=== PATIENT | female | born 1995 | race Hispanic/Latino ===

== ENCOUNTER 2019-11-25 11:44 | Emergency (ER) | payer OTHER, SELFPAY ==
--- NOTE | 2019-11-25 13:23 | EKG ---
Test Date: 2019-11-25 Test Time: 12:40:20 Headliner Installer: PAOLO MEASUREMENT RESULTS: Intervals: Rate: 96 MN: 142 QRSD: 82 QT: 348 QTc: 439 [place]: P: 70 MN: 142 QRS: 90 T: 68 INTERPRETIVE STATEMENTS: Normal sinus rhythm Right atrial enlargement Rightward axis Borderline ECG No previous ECG available for comparison Electronically Signed On 11-25-19 13:22:24 CDT by Roe Vargas
--- NOTE | 2019-11-25 13:30 | RAD REPORT ---
EXAM DESCRIPTION: RAD - Chest Single View - 11/25/2019 1:04 pm CLINICAL HISTORY: CHEST PAIN TECHNIQUE: AP portable chest image was obtained 11/25/2019 1:04 pm . FINDINGS: Lungs are clear. Heart and vasculature are normal. No measurable pleural effusion and no p neumothorax. No acute bony abnormality seen. No acute aortic findings suspected. IMPRESSION: No acute cardiopulmonary process.
[2019-11-25 13:31] LABS: Absolute Lymphocytes (CBC) 1.8 K/uL (0.7-4.9); Basophils % 0.5 % (0-1.3); Hematocrit 42.4 % (36.0-45.0); Lymphocytes % 24.9 % (15.3-44.8); MPV 9.3 fL (7.6-11.3); RBC Red Blood Cell Count 5.25 M/uL (3.86-4.86)
[2019-11-25 13:37] LABS: ALT/SGPT 28 U/L (12-78); AST/SGOT 18 U/L (15-37); Albumin 3.9 g/dL (3.4-5.0); Alkaline Phosphatase 82 U/L (45-117); BUN Blood Urea Nitrogen 10 mg/dL (7-18); Bicarbonate 27 mmol/L (21-32); Bilirubin Direct < 0.1 mg/dL (0-0.2); Bilirubin Total 0.4 mg/dL (0.2-1.0); Glucose Level 86 mg/dL (74-106); Magnesium 1.9 mg/dL (1.8-2.4); NT PRO-BNP 44 pg/mL (<125); Potassium 3.5 mmol/L (3.5-5.1); Protein, Total 8.1 g/dL (6.4-8.2); Sodium Level 140 mmol/L (136-145); Troponin (Emerg Dept Use Only) < 0.02 ng/mL (0.0-0.045)
[2019-11-25 13:39] LABS: Protime INR 1.05
--- NOTE | 2019-11-25 13:39 | RAD REPORT ---
EXAM DESCRIPTION: US - Abdomen Exam Limited - 11/25/2019 1:25 pm CLINICAL HISTORY: ABD PAIN COMPARISON: No comparisons FINDINGS: No gallstones, sludge or other abnormalities within the gallbladder lumen. There is no wal l thickening or pericholecystic fluid. No common duct stone or biliary tree dilatation identified. IMPRESSION: Normal gallbladder and biliary tree ultrasound.
[2019-11-25] MEDS ORDERED: FAMOTIDINE 20 MG/2 ML VIAL IV ONE (13:58)
--- NOTE | 2019-11-25 14:29 | RAD REPORT ---
EXAM DESCRIPTION: CT - Chest For Pe Angio - 11/25/2019 2:21 pm CLINICAL HISTORY: CHEST PAIN COMPARISON: Chest Single View dated 11/25/2019 TECHNIQUE: Dynamically enhanced 3 mm thick images of the chest were obtained during administration o f approximately 150mL Isovue 370 IV contrast. Coronal and oblique MIP reconstruction images were gene rated and reviewed. Exam utilizes a protocol to evaluate the pulmonary arterial tree. All CT scans are performed using dose optimization technique as appropriate and may include automated exposure control or mA/KV adjustment according to patient size. FINDINGS: No pulmonary emboli are identified. The aorta as imaged shows no acute or suspicious finding. No pericardial thickening or effusion. No infiltrate or mass in the lung parenchyma. No pleural effusion or pleural thickening. No mediastinal or hilar suspicious masses. No chest wall masses or abnormal axillary lymphadenopathy. IMPRESSION: No pulmonary emboli identified. No other significant or suspicious findings.
--- NOTE | 2019-11-25 14:51 | EDPHYS ---
Physician Documentation [facility] Name: Eden Lopez Age: 24 yrs Sex: Female : 1995 Arrival Date: 11/25/2019 Time: 11:45 Bed 24 Private MD: ED Physician Dominick Yates HPI: 11/24 13:31 This 24 yrs old Female presents to ER via Ambulatory with complaints of Chest la1 Pain. 13:31 Onset: The symptoms/episode began/occurred 1 month(s) ago. Associated signs and la1 symptoms: Pertinent negatives: abdominal pain, congestion, constipation, cough, diarrhea, dysuria, nasal discharge. Modifying factors: The patient symptoms are alleviated by nothing, the patient symptoms are aggravated by eating food. The patient has not experienced similar symptoms in the past. pt reports for the last month she has had chest pain, states pain is worse after eating. . 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 - Social history:: Smoking status: Patient denies any tobacco usage or history of. ROS: 13:32 Constitutional: Negative for fever, chills, and weight loss, Eyes: Negative for injury, la1 pain, redness, and discharge, ENT: Negative for injury, pain, and discharge, Neck: Negative for injury, pain, and swelling, Cardiovascular: + for chest pain Respiratory: Negative for shortness of breath Abdomen/GI: Negative for abdominal pain, nausea, vomiting, diarrhea, and constipation, Back: Negative for injury and pain, MS/Extremity: Negative for injury and deformity, Neuro: Negative for headache, weakness, numbness, tingling, and seizure. Exam: 13:33 Constitutional: This is a well developed, well nourished patient who is awake, alert, la1 and in no acute distress. Head/Face: Normocephalic, atraumatic. ENT: Nares patent. No nasal discharge, no septal abnormalities noted. Tympanic membranes are normal and external auditory canals are clear. Oropharynx with no redness, swelling, or masses, exudates, or evidence of obstruction, uvula midline. Mucous membranes moist. Neck: Trachea midline, Supple, full range of motion without nuchal rigidity, or vertebral point tenderness. No Meningismus. Chest/axilla: Normal chest wall appearance and motion. Nontender with no deformity. No lesions are appreciated. Cardiovascular: Regular rate and rhythm with a normal S1 and S2. Respiratory: Lungs have equal breath sounds bilaterally, clear to auscultation Back: No spinal tenderness. No costovertebral tenderness. Full range of motion. MS/ Extremity: Pulses equal, no cyanosis. Neurovascular intact. Full, normal range of motion. Neuro: Awake and alert, GCS 15, oriented to person, place, time, and situation 13:33 Abdomen/GI: Inspection: abdomen appears normal, Bowel sounds: normal, in all quadrants, Palpation: soft, in all quadrants, moderate abdominal tenderness, in the right upper quadrant, Indicators: McBurney's point is not tender, Baugh's sign is positive, Rovsing's sign is negative, Obturator sign is negative, Psoas sign is negative. 13:43 ECG was reviewed by the Attending Physician. la1 Vital Signs: 12:02 BP 120 / 78; Pulse 103; Resp 14; Temp 98.5(TE); Pulse Ox 100% on R/A; Weight 64.86 kg; ss Height 5 ft. 2 in. (157.48 cm); Pain 3/10; 13:00 BP 101 / 71; Pulse 91; Resp 16; Pulse Ox 100% on R/A; vc 14:00 BP 116 / 85; Pulse 82; Resp 17; Pulse Ox 100% on R/A; vc 14:59 BP 120 / 87; Pulse 93; Resp 16; Temp 98.1(O); Pulse Ox 100% on R/A; vc 12:02 Body Mass Index 26.15 (64.86 kg, 157.48 cm) ss MDM: 13:24 Patient medically screened. la1 14:46 Differential diagnosis: viral Infection, bronchitis, pneumonia ischemic chest pain, PE. la1 Data reviewed: vital signs, nurses notes, lab test result(s), EKG, radiologic studies, I have discussed the patient's presentation/case with the attending Emergency Department Physician; and as a result, I will discharge patient. Data interpreted: Pulse oximetry: on room air is 100 %. Counseling: I had a detailed discussion with the patient and/or guardian regarding: the historical points, exam findings, and any diagnostic results supporting the discharge/admit diagnosis, lab results, radiology results, the need for outpatient follow up, a family practitioner, to return to the emergency department if symptoms worsen or persist or if there are any questions or concerns that arise at home. Special discussion: Based on the patient's history, exam, and Dx evaluation, there is no indication for emergent intervention or inpatient Tx. It is understood by the patient/guardian that if the Sx's persist or worsen they need to return immediately for re-evaluation. ED course: pt was tachycardia with rightward axis and right atrial enlargement, DDIMER was ordered to attempt to R/O PE as she was low risk but it was +, CT PE shows no acute findings, will have Pt FU with PCP, strict return precautions given. 11/24 12:48 Order name: Basic Metabolic Panel [facility] 11/24 12:48 Order name: CBC with Diff; Complete Time: 13:43 [facility] 11/24 12:48 Order name: LFT's; Complete Time: 13:43 [facility] 11/24 12:48 Order name: Magnesium; Complete Time: 13:43 [facility] 11/24 12:48 Order name: NT PRO-BNP; Complete Time: 13:43 [facility] 11/24 12:48 Order name: PT-INR; Complete Time: 13:59 [facility] 11/24 12:48 Order name: Troponin (emerg Dept Use Only); Complete Time: 13:43 [facility] 11/24 12:27 Order name: Cardiac monitoring; Complete Time: 13:26 11/24 12:27 Order name: EKG - Nurse/Tech; Complete Time: 13:26 11/24 12:27 Order name: IV Saline Lock; Complete Time: 13: 11/24 12:27 Order name: Labs collected and sent; Complete Time: 13: 11/24 12:27 Order name: O2 Per Protocol; Complete Time: 13:27 11/24 12:27 Order name: O2 Sat Monitoring; Complete Time: 13:27 11/24 12:48 Order name: XRAY Chest (1 view); Complete Time: 13:43 [facility] 11/24 12:48 Order name: EKG; Complete Time: 12:49 jl7 11/24 12:49 Order name: Basic Metabolic Panel; Complete Time: 13:43 EDTN 11/24 13:04 Order name: US Abdomen Limited; Complete Time: 13:44 la1 11/24 13:26 Order name: D-Dimer; Complete Time: 13:59 EDMS 11/24 13:59 Order name: CT Chest For PE Angio; Complete Time: 14:39 la1 EC:43 Rate is 96 beats/min. Rhythm is regular. Right axis deviation noted. HI interval is la1 normal at 142 msec. QRS interval is normal. QT interval is normal. No Q waves. T waves are Normal. No ST changes noted. Clinical impression: Normal ECG and rightward axis deviation. Interpreted by me. Reviewed by me. Administered Medications: 14:00 Drug: Pepcid 20 mg Route: IVP; Site: right antecubital; vc 14:51 Follow up: Response: No adverse reaction vc Disposition: 16:26 Co-signature as Attending Physician, Dominick Yates MD I agree with the assessment and kdr plan of care. Disposition: 11/25/19 14:50 Discharged to Home. Impression: Chest pain, unspecified. - Condition is Stable. - Discharge Instructions: Nonspecific Chest Pain, Gastroesophageal Reflux Disease, Adult. - Medication Reconciliation Form, Thank You Letter form. - Follow up: Private Physician; When: 2 - 3 days; Reason: Recheck today's complaints, Re-evaluation by your physician. - Problem is new. - Symptoms have improved. Signatures: Dispatcher [employer] [facility] Dominick Yates MD MD [facility] Aline Michelle RN RN Dixon Avalos, CANCER PROGRAM DIRECTOR-C CANCER PROGRAM DIRECTOR-Cla1 Gauri Reese RN RN vc Corrections: (The following items were deleted from the chart) 13:26 13:04 D-DIMER+COAG.LAB.BRZ ordered. [facility] 15:15 14:50 11/25/2019 14:50 Discharged to Home. Impression: Chest pain, unspecified. vc Condition is Stable. Forms are Medication Reconciliation Form, Thank You Letter, Antibiotic Education, Prescription Opioid Use. Follow up: Private Physician; When: 2 - 3 days; Reason: Recheck today's complaints, Re-evaluation by your physician. Problem is new. Symptoms have improved. la1
--- NOTE | 2019-11-25 14:51 | ER ---
Nurse's Notes [facility] Name: Eden Lopez Age: 24 yrs Sex: Female : 1995 Arrival Date: 11/25/2019 Time: 11:45 Bed 24 Private MD: Diagnosis: Chest pain, unspecified Presentation: 11/24 12:02 Chief complaint: Patient states: Sent by Dr. Hernandez for further evaluation of ss intermittent CP and dizziness x 1 month. Coronavirus screen: The patient has NOT traveled to a country currently being monitored by the [facility] within the last 14 days. Proceed with normal triage procedures. Ebola Screen: Patient denies exposure to infectious person. Patient denies travel to an Ebola-affected area in the 21 days before illness onset. Initial Sepsis Screen: Does the patient meet any 2 criteria? No. Patient's initial sepsis screen is negative. Does the patient have a suspected source of infection? No. Patient's initial sepsis screen is negative. Risk Assessment: Do you want to hurt yourself or someone else? Patient reports no desire to harm self or others. 12:02 Method Of Arrival: Ambulatory ss 12:02 Acuity: ELBERT 3 ss 12:22 Onset of symptoms is unknown. vc Triage Assessment: 12:15 General: Appears in no apparent distress. comfortable, Behavior is calm, cooperative, vc appropriate for age. Pain: Complains of pain in CHEST Quality of pain is described as Is intermittent. Cardiovascular: Capillary refill < 3 seconds Patient's skin is warm and dry. 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 - Social history:: Smoking status: Patient denies any tobacco usage or history of. Screenin:22 Abuse screen: Denies threats or abuse. Nutritional screening: No deficits noted. vc Tuberculosis screening: No symptoms or risk factors identified. Fall Risk None identified. Assessment: 12:15 General: Appears in no apparent distress. comfortable, Behavior is cooperative, vc appropriate for age, anxious. Neuro: Level of Consciousness is awake, alert, obeys commands, Oriented to person, place, time, situation, Appropriate for age. Cardiovascular: Reports chest pain, Capillary refill < 3 seconds Patient's skin is warm and dry. Respiratory: Airway is patent Respiratory effort is even, unlabored, Respiratory pattern is regular, symmetrical. GI: No signs and/or symptoms were reported involving the gastrointestinal system. : No signs and/or symptoms were reported regarding the genitourinary system. Derm: Skin is intact, is healthy with good turgor, Skin is dry, Skin is pink, warm \T\ dry. Skin temperature is warm. 12:20 Pain: Pain does not radiate. vc 12:22 Pain: Pain began one month ago. vc 13:00 Reassessment: Patient and/or family updated on plan of care and expected duration. Pain vc level reassessed. Patient is alert, oriented x 3, equal unlabored respirations, skin warm/dry/pink. 13:46 Reassessment: Dixon Avalos INFORMATION WRITER notified of critical lab value. DDIMER [id number]. 14:00 Reassessment: Patient and/or family updated on plan of care and expected duration. Pain vc level reassessed. Patient is alert, oriented x 3, equal unlabored respirations, skin warm/dry/pink. Patient states symptoms have not improved. 14:09 Reassessment: PATIENT TO CT VIA STRETCHER. vc 15:14 Reassessment: Patient and/or family updated on plan of care and expected duration. Pain vc level reassessed. Patient is alert, oriented x 3, equal unlabored respirations, skin warm/dry/pink. Patient states symptoms have not improved. Vital Signs: 12:02 BP 120 / 78; Pulse 103; Resp 14; Temp 98.5(TE); Pulse Ox 100% on R/A; Weight 64.86 kg; Height 5 ft. 2 in. (157.48 cm); Pain 3/10; 13:00 BP 101 / 71; Pulse 91; Resp 16; Pulse Ox 100% on R/A; vc 14:00 BP 116 / 85; Pulse 82; Resp 17; Pulse Ox 100% on R/A; vc 14:59 BP 120 / 87; Pulse 93; Resp 16; Temp 98.1(O); Pulse Ox 100% on R/A; vc 12:02 Body Mass Index 26.15 (64.86 kg, 157.48 cm) ED Course: 11:45 Patient arrived in ED. as 12:03 Triage completed. ss 12:04 Arm band placed on right wrist. ss 12:15 Patient has correct armband on for positive identification. Placed in gown. Bed in low vc position. Call light in reach. ripsaw grader on. Pulse ox on. NIBP on. 12:18 Dixon Avalos FNP-C is PHCP. la1 12:18 Dominick Yates MD is Attending Physician. la1 12:20 Gauri Reese, RN is Primary Nurse. vc 12:40 Inserted saline lock: 22 gauge in right antecubital area, using aseptic technique. vc Blood collected. 12:40 Patient maintains SpO2 saturation greater than 95% on room air. vc 13:03 X-ray completed. Portable x-ray completed in exam room. Patient tolerated procedure mh1 well. 13:04 XRAY Chest (1 view) In Process Unspecified. EDMS 13:26 US Abdomen Limited In Process Unspecified. EDMS 14:21 CT Chest For PE Angio In Process Unspecified. EDMS 15:00 No provider procedures requiring assistance completed. vc 15:14 IV discontinued, intact, bleeding controlled, No redness/swelling at site. Pressure vc dressing applied. Administered Medications: 14:00 Drug: Pepcid 20 mg Route: IVP; Site: right antecubital; vc 14:51 Follow up: Response: No adverse reaction vc Outcome: 14:50 Discharge ordered by . la1 15:14 Discharged to home ambulatory. vc 15:14 Condition: good 15:14 Discharge instructions given to patient, Instructed on discharge instructions, follow up and referral plans. Demonstrated understanding of instructions, follow-up care. 15:15 Patient left the ED. vc Signatures: Dispatcher [employer] EDMS Sariah Walden 1 Nataliya Rubio Shelby, RN RN Dixon Avalos FNP-C FNP-[facility] Gauri Reese RN RN vc
[2019-11-25 15:22] VITALS: O2SAT 100
[2019-11-25 15:26] VITALS: BP 120/87; TEMP 98.1
== END 2019-11-25 15:15 | disposition home or self-care (01) ==
LOC: ER 11:44
DX: R07.9 Chest pain, unspecified (principal)
CPT/HCPCS: 36415; 71045; 71275; 76705; 80048; 80076; 83735; 83880; 84484; 85025; 85379; 85610; 93005; 96374; 99285; Q9967

== ENCOUNTER 2020-02-23 16:10 | Emergency (ER) | payer OTHER ==
[2020-02-23] MEDS ORDERED: LORazepam 2 MG/ML VIAL ONE (16:53)
[2020-02-23 17:08] LABS: Absolute Lymphocytes (CBC) 2.1 K/uL (0.7-4.9); Basophils % 0.5 % (0-1.3); Hematocrit 43.4 % (36.0-45.0); Lymphocytes % 29.9 % (15.3-44.8); MPV 9.3 fL (7.6-11.3); RBC Red Blood Cell Count 5.05 M/uL (3.86-4.86)
[2020-02-23 17:19] LABS: Barbiturates NEGATIVE (NEGATIVE); Benzodiazepines NEGATIVE (NEGATIVE); Cocaine NEGATIVE (NEGATIVE); METHAMPHETAM NEGATIVE (NEGATIVE); Methadone NEGATIVE (NEGATIVE); Opiates NEGATIVE (NEGATIVE); Phencyclidine NEGATIVE (NEGATIVE); THC Cannibis NEGATIVE (NEGATIVE)
--- OUTSIDE RECORDS SUMMARY | 2020-02-23 17:26 | XMS REPORT ---
:1995 Author Organization [employer] Care Team Providers Name Role Phone Iliana Hernandezh Provider Role Unavailable Allergies No Known Allergies Problems Problem Type Condition Code Onset Dates Condition Statu s Problem Dysphagia, unspecified type R13.10 Active Problem GERD without esophagitis K21.9 Act gwendolyn Medications No Known Medications Results No Known Results Summary Purpose eClinicalWorks Submission
--- OUTSIDE RECORDS SUMMARY | 2020-02-23 17:26 | XMS REPORT ---
:1995 Author Organization [employer] Care Team Providers Name Role Phone David [facility] Provider Role Unavailable Allergies, Adverse Reactions, Alerts Substance Reaction Event Type Macrobid Rash Drug Allergy Problems Problem Type Condition Code Onset Dates Condition Statu s Assessment Chest pain, unspecified type R07.9 Active Medications Medication Code System Code Instructions Start Date End Date Status Dosage Vitamin B12 [facility] 37711-676 Active not define d 17 Ferrous Sulfate [facility] 92764-120 Active not de fined 83 Results No Known Results Summary Purpose eClinicalWorks Submission
--- OUTSIDE RECORDS SUMMARY | 2020-02-23 17:26 | XMS REPORT ---
:1995 Author Organization e[employer] Care Team Providers Name Role Phone David [facility] Provider Role Unavailable Allergies, Adverse Reactions, Alerts Substance Reaction Event Type Macrobid Rash Drug Allergy Problems Problem Type Condition Code Onset Dates Condition Statu s Problem Dysphagia, unspecified type R13.10 Active Problem GERD without esophagitis K21.9 Act gwendolyn Assessment GERD without esophagitis K21.9 Act gwendolyn Assessment Other chest pain R07.89 Active Assessment Dysphagia, unspecified type R13.10 Active Medications Medication Code Code Instructions Start End Status Dosage System Date Date Vitamin B12 [facility] [address]24-[address] Active not defined Omeprazole [facility] [id number] 40 MG Orally November 26 Active 1 capsule Once a day 2019 30 minutes before morning meal Ferrous [facility] 75[address] Active not Sulfate defined Results No Known Results Summary Purpose eClinicalWorks Submission
--- OUTSIDE RECORDS SUMMARY | 2020-02-23 17:26 | XMS REPORT | Continuity of Care Document ---
:1995 Author Organization [facility] t Address [address] [place] [address] Care Team Providers Name Role Phone Unavailable Unavailable Unavailable Payers Payer Name Policy Type Policy Number Effective Date Expiration Date S ource Problems Condition Condition Condition Status Onset Resolution Last Treating Co mments Source Name Details Category Date Date Treatment Clinician Date Pre-eclamp Pre-eclamp Problem Active [facility] nano nano 1-22 da 00:00: Medical 00 Group Oligohydra Oligohydra Problem Active [facility] mnios mnios 1-22 da 00:00: Medical Group Problem Active [facility] growth Growth 1-22 da restrictio Restrictio 00:00: Me dical n n 00 Group Small for Small for Problem Active [facility] gestationa Gestationa 1-15 da l age l Age 00:00: Medical fetus Fetus 00 Group Candidiasi Candidiasi Problem Active 2016-09 [facility] s of s of 0-05 da vagina Vagina 00:00: Medical 00 Group Gastroesop Gastroesop Problem Active 2016-09 [facility] hageal hageal 0-05 da reflux Reflux 00:00: Medical disease Disease 00 Group without without esophagiti Esophagiti s s Acute Acute Problem Active [facility] cystitis Cystitis 9-12 da in in 00:00: Medical , , 00 Gr oup antepartum Antepartum Allergic Allergic Problem Active [facility] rhinitis Rhinitis 8-15 da due to Due to 00:00: Medical pollen Pollen 00 Group Mild Mild Problem Active [facility] hyperemesi Hyperemesi 8-15 da s-not s-not 00:00: Medical delivered Delivered 00 Grou p Problem Active [facility] 8-14 da 00:00: Medical 00 Group Insomnia Insomnia Problem Active [facility] 207 da 00:00: Medical 00 Group Migraine Migraine Problem Active [facility] 2 da 00:00: Medical 00 Group Dysphagia, Dysphagia, Problem Active [facility] unspecifie unspecifie Thuy kes - d type d type [facility] GERD GERD Problem Active [facility] without without [facility] - esophagiti esophagiti Me moria s s l [facility] Allergies, Adverse Reactions, Alerts Allergy Allergy Status Severity Reaction(s) Onset Inactive Treating Comm ents Source Name Type Date Date Clinician nitrofur DA Active [facility] [place] Macrobid Adverse Active Rash [facility] Reaction [facility] House Allergy Active [facility] Dust to da substanc Medical e Group Nitrofur Allergy Active [facility] antoin to da substanc Medical e Group TREE AND Allergy Active [facility] SHRUB to da POLLEN [facility] Medical e Group Social History Smoking Status Start Date Stop Date Source Never Smoker [facility] Medications Ordered Filled Start Stop Current Ordering Indication Dosage Frequency Signature Comments Components Source Medication Medication Date Date Medication? Clinician (SIG) Name Name Sulfamethox Sulfamethox 2019-0 2020- Yes Tadeo [address] [facility] azole-Trime azole-Trime 4-20 04-25 Hernandez [facility] - thoprim thoprim 00:00: 00:00 Memori a 00 :00 l [facility] Omeprazole Omeprazole 2019-0 Yes Tadeo [address] [facility] 3-20 Hernandez 30 minutes [facility] - 00:00: before Memoria 00 morning l meal [facility] Vitamin B12 Vitamin B12 Yes Tadeo not [facility] Hernandez defined [facility] Ferrous Ferrous Yes Tadeo not [facility] Sulfate Sulfate Hernandez defined [facility] Zithromax Zithromax No Zithromax Yongr Z-Edin 250 Z-Edin 250 Z-Edin 250 da mg tablet mg tablet mg tablet Medical TAKE 2 TAKE 2 TAKE 2 Group TABLETS TABLETS TABLETS (500 MG) BY (500 MG) BY (500 MG) ORAL ROUTE ORAL ROUTE BY ORAL ONCE DAILY ONCE DAILY ROUTE ONCE FOR 1 DAY FOR 1 DAY DAILY FOR THEN 1 THEN 1 1 DAY THEN TABLET (250 TABLET (250 1 TABLET MG) BY ORAL MG) BY ORAL (250 MG) ROUTE ONCE ROUTE ONCE BY ORAL DAILY FOR 4 DAILY FOR 4 ROUTE ONCE DAYS DAYS DAILY FOR 4 DAYS Vital Signs Vital Name Observation Time Observation Value Comments Source BP Diastolic 2018-11-03 00:00:00 70 mm[Hg] [facility] Height 2018-11-03 00:00:00 62 [facility] BMI (Body Mass 2018-11-03 00:00:00 23 kg/m2 [facility] Index) Group BP Systolic 2018-11-03 00:00:00 105 mm[Hg] [facility] Body Weight 2018-11-03 00:00:00 126 [lb_av] [facility] BP Diastolic 2018-10-30 00:00:00 72 mm[Hg] [facility] Height 2018-10-30 00:00:00 62 [in_i] [facility] BMI (Body Mass 2018-10-30 00:00:00 23 kg/m2 [facility] Index) Group BP Systolic 2018-10-30 00:00:00 102 mm[Hg] [facility] Body Weight 2018-10-30 00:00:00 2009 [oz_av] [facility] BP Diastolic 2018-10-20 00:00:00 60 mm[Hg] [facility] Height 2018-10-20 00:00:00 62 [in_i] [facility] BMI (Body Mass 2018-10-20 00:00:00 23.6 kg/m2 [facility] BP Systolic 2018-10-20 00:00:00 120 mm[Hg] [facility] Body Weight 2018-10-20 00:00:00 129 [lb_av] [facility] BP Diastolic 2018-09-25 00:00:00 65 mm[Hg] [facility] Height 2018-09-25 00:00:00 62 [in_i] [facility] BMI (Body Mass 2018-09-25 00:00:00 23.6 kg/m2 [facility] BP Systolic 2018-09-25 00:00:00 120 mm[Hg] [facility] Body Weight 2018-09-25 00:00:00 129 [lb_av] [facility] BP Diastolic 2018-09-22 00:00:00 70 mm[Hg] [facility] Height 2018-09-22 00:00:00 62 [in_i] [facility] BMI (Body Mass 2018-09-22 00:00:00 23.7 kg/m2 [facility] BP Systolic 2018-09-22 00:00:00 108 mm[Hg] [facility] Body Weight 2018-09-22 00:00:00 2069 [oz_av] [facility] Procedures Procedure Date / Time Performing Clinician Source Performed NM, hepatobiliary scan, 2018-10-21 00:00:00 [facility]/ [facility] CT, abdomen, w/wo 2018-10-01 00:00:00 [facility] unlisted imaging order 2018-09-25 00:00:00 [facility] Caesarean Section 2017-10-07 00:00:00 [facility] Ovarian Cystectomy [facility] Plan of Care Planned Activity Planned Date Details Comments Source Instructions [facility] Encounters Start End Encounter Admission Attending Care Care Encounter Source Date/Time Date/Time Type Type Clinicians Facility Department ID 2020-01-08 2020-01-08 Outpatient Zeina Boles [id number] 14:46:00 14:46:00 ALICE App [facility] Medicine Outpati ent Clinics 2019-12-28 2019-12-28 [facility] [id number] 15:15:00 15:15:[address] Luke [address] - Drive [facility] Medicine Outpati ent Clinics 2019-11-27 2019-11-27 [facility] [id number] 11:00:00 11:00:[address] Luke s - Drive [facility] Medicine Outpati ent Clinics 2019-11-25 2019-11-25 [facility] [id number] 11:00:00 11:00:00 [place] Luke s - Drive [facility] Medicine Medicine Outpati ent Clinics 2018-11-18 2018-11-18 Emergency E [facility] [id number] [facility] 21:14:00 21:14:00 2018-11-03 2018-11-03 Hang [place]IS [place] - [id number] [facility] 00:00:00 00:00:00 Ryan DO: [facility] randell garcia [address] [place] [phone] , Ph. [phone] 2018-10-30 2018-10-30 Truman [place] - [id number] [facility] 00:00:00 00:00:00 Harvey Diaz Medical MD: [address] [place] [address] [place] [phone] , Ph. 2018-10-25 2018-10-25 Emergency E [facility] [id number] [facility] 01:55:00 01:55:00 2018-10-20 2018-10-20 Hang LUIS [place] - [id number] [facility] 00:00:00 00:00:00 Ryan DO: [facility] randell garcia [address] [place] [phone] , Ph. [phone] 2018-09-25 2018-09-25 Hang LUIS [place] - [id number] [facility] 00:00:00 00:00:00 Ryan DO: [facility] randell garcia [address] [place] [phone] , Ph. [phone] 2018-09-22 2018-09-22 Truman [facility] [place] - [id number] [facility] 00:00:00 00:00:00 Moose Hampton, Medical Medical MD: [address] [facility], Family [address], [place] [address] , Ph. Results Test Description Test Time Test Comments Results Result Comments Source test, urine 2018-09-23 05:27:00 Test Item Value Reference Range Interpretation Comme nts Choriogonadotropin ( test) [Presence] in Urine (tessa t code = negative neg 2106-3) [facility] - [id number] 05:27:00 Test Item Value Reference Range Interpretation Comments Color of Urine by Auto (test yellow code = 19131-6) Appearance of Urine (test code clear clear = 5767-9) Glucose [Presence] in Urine by negative negative Automated test strip (test code = 23740-6) Bilirubin.total [Mass/volume] negative negative in Urine (test code = 1978-6) Ketones [Mass/volume] in Urine =2 negative H by Automated test strip (test code = 08428-2) Specific gravity of Urine by 1.034 1.003-1.030 H Automated test strip (test code = 11424-0) blood urine (test code = blood negative negative urine) pH of Urine (test code = 5.500 5-9 2756-5) protein urine (UA) (test code = trace negative protein urine (UA)) Urobilinogen [Presence] in =2.0 0.2-1.0 H Urine (test code = 53739-6) Nitrite [Presence] in Urine by negative negative Test strip (test code = 5802-4) Leukocyte esterase [Presence] =2 negative H in Urine by Automated test strip (test code = 59667-8) Erythrocytes [#/volume] in =1-5 0-5 Urine by Automated count (test code = 798-9) Leukocytes [#/area] in Urine =1-5 0-5 sediment by Automated count (test code = 55091-6) Epithelial cells [Presence] in =1-5 0-5 Urine sediment by Light microscopy (test code = 59365-1) Bacteria identified in Urine by none detected none detect Culture (test code = 630-4) Casts [#/area] in Urine =2-5 none detect sediment by Automated count (test code = 33476-6) urine culture added? (test code yes = urine culture added?) [facility] identified in Urine by [id number] 05:27:00Bacteria Ur [facility], [id number] 05:27:00 Test Item Value Reference Range Interpretation Comments Gentamicin [Susceptibility] by Minimum <4 inhibitory concentration (HEATHER) (test code = 267-5) Ampicillin [Susceptibility] by Minimum >16 inhibitory concentration (HEATHER) (test code = 28-1) Cefazolin [Susceptibility] by Minimum <8 inhibitory concentration (HEATHER) (test code = 76-0) Trimethoprim+Sulfamethoxazole =2/38 [Susceptibility] by Minimum inhibitory concentration (HEATHER) (test code = 516-5) Tetracycline [Susceptibility] by >8 Minimum inhibitory concentration (HEATHER) (test code = 496-0) Amoxicillin+Clavulanate =8/4 [Susceptibility] by Minimum inhibitory concentration (HEATHER) (test code = 20-8) Tobramycin [Susceptibility] by Minimum <4 inhibitory concentration (HEATHER) (test code = 508-2) Nitrofurantoin [Susceptibility] by <32 Minimum inhibitory concentration (HEATHER) (test code = 363-2) Cefotaxime [Susceptibility] by Minimum <2 inhibitory concentration (HEATHER) (test code = 108-1) Cefepime [Susceptibility] by Minimum <8 inhibitory concentration (HEATHER) (test code = 6644-9) Levofloxacin [Susceptibility] by <2 Minimum inhibitory concentration (HEATHER) (test code = 97979-7) Piperacillin+Tazobactam <16 [Susceptibility] by Minimum inhibitory concentration (HEATHER) (test code = 412-7) Ceftazidime [Susceptibility] by Minimum <1 inhibitory concentration (HEATHER) (test code = 133-9) Ceftriaxone [Susceptibility] by Minimum <8 inhibitory concentration (HEATHER) (test code = 141-2) Ciprofloxacin [Susceptibility] by <1 Minimum inhibitory concentration (HEATHER) (test code = 185-9) Imipenem [Susceptibility] by Minimum <4 inhibitory concentration (HEATHER) (test code = 279-0) Ampicillin+Sulbactam [Susceptibility] =8/4 by Minimum inhibitory concentration (HEATHER) (test code = 32-3) Ertapenem [Susceptibility] by Minimum <2 inhibitory concentration (HEATHER) (test code = 67455-6) Aztreonam [Susceptibility] by Minimum <8 inhibitory concentration (HEATHER) (test code = 44-8) [id number] (test code = vgc9341) <4 Meropenem [Susceptibility] by Minimum <4 inhibitory concentration (HEATHER) (test code = 6652-2) [facility], [id number] 05:27:00 Test Item Value Reference Range Interpretation Comments Choriogonadotropin ( test) negative neg [Presence] in Urine (test code = 2106-3) [facility] complete panel - [id number] 05:27:00 Test Item Value Reference Range Interpretation Comments Color of Urine by Auto (test yellow code = 76910-3) Appearance of Urine (test code clear clear = 5767-9) Glucose [Presence] in Urine by negative negative Automated test strip (test code = 83606-1) Bilirubin.total [Mass/volume] negative negative in Urine (test code = 1978-6) Ketones [Mass/volume] in Urine =2 negative H by Automated test strip (test code = 35006-0) Specific gravity of Urine by 1.034 1.003-1.030 H Automated test strip (test code = 06165-5) blood urine (test code = blood negative negative urine) pH of Urine (test code = 5.500 5-9 2756-5) protein urine (UA) (test code = trace negative protein urine (UA)) Urobilinogen [Presence] in =2.0 0.2-1.0 H Urine (test code = 06433-1) Nitrite [Presence] in Urine by negative negative Test strip (test code = 5802-4) Leukocyte esterase [Presence] =2 negative H in Urine by Automated test strip (test code = 64153-7) Erythrocytes [#/volume] in =1-5 0-5 Urine by Automated count (test code = 798-9) Leukocytes [#/area] in Urine =1-5 0-5 sediment by Automated count (test code = 74383-4) Epithelial cells [Presence] in =1-5 0-5 Urine sediment by Light microscopy (test code = 97000-2) Bacteria identified in Urine by none detected none detect Culture (test code = 630-4) Casts [#/area] in Urine =2-5 none detect sediment by Automated count (test code = 35009-3) urine culture added? (test code yes = urine culture added?) [facility] identified in Urine by [id number] 05:27:00Bacteria Ur [facility], [id number] 05:27:00 Test Item Value Reference Range Interpretation Comments Gentamicin [Susceptibility] by Minimum <4 inhibitory concentration (HEATHER) (test code = 267-5) Ampicillin [Susceptibility] by Minimum >16 inhibitory concentration (HEATHER) (test code = 28-1) Cefazolin [Susceptibility] by Minimum <8 inhibitory concentration (HEATHER) (test code = 76-0) Trimethoprim+Sulfamethoxazole =2/38 [Susceptibility] by Minimum inhibitory concentration (HEATHER) (test code = 516-5) Tetracycline [Susceptibility] by >8 Minimum inhibitory concentration (HEATHER) (test code = 496-0) Amoxicillin+Clavulanate =8/4 [Susceptibility] by Minimum inhibitory concentration (HEATHER) (test code = 20-8) Tobramycin [Susceptibility] by Minimum <4 inhibitory concentration (HEATHER) (test code = 508-2) Nitrofurantoin [Susceptibility] by <32 Minimum inhibitory concentration (HEATHER) (test code = 363-2) Cefotaxime [Susceptibility] by Minimum <2 inhibitory concentration (HEATHER) (test code = 108-1) Cefepime [Susceptibility] by Minimum <8 inhibitory concentration (HEATHER) (test code = 6644-9) Levofloxacin [Susceptibility] by <2 Minimum inhibitory concentration (HEATHER) (test code = 91767-7) Piperacillin+Tazobactam <16 [Susceptibility] by Minimum inhibitory concentration (HEATHER) (test code = 412-7) Ceftazidime [Susceptibility] by Minimum <1 inhibitory concentration (HEATHER) (test code = 133-9) Ceftriaxone [Susceptibility] by Minimum <8 inhibitory concentration (HEATHER) (test code = 141-2) Ciprofloxacin [Susceptibility] by <1 Minimum inhibitory concentration (HEATHER) (test code = 185-9) Imipenem [Susceptibility] by Minimum <4 inhibitory concentration (HEATHER) (test code = 279-0) Ampicillin+Sulbactam [Susceptibility] =8/4 by Minimum inhibitory concentration (HEATHER) (test code = 32-3) Ertapenem [Susceptibility] by Minimum <2 inhibitory concentration (HEATHER) (test code = 59697-6) Aztreonam [Susceptibility] by Minimum <8 inhibitory concentration (HEATHER) (test code = 44-8) [id number] (test code = ygb6154) <4 Meropenem [Susceptibility] by Minimum <4 inhibitory concentration (HEATHER) (test code = 6652-2) [facility] W Auto Differential panel - [id number] 04:57:00 Test Item Value Reference Range Interpretation Comments white blood count (test code = 7.6 K/uL 4.0-11.5 white blood count) red blood count (test code = red 4.88 M/uL 3.80-5.20 blood count) Hemoglobin [Mass/volume] in Blood 11.5 g/dL 10.5-15.7 (test code = 718-7) hematocrit (test code = hematocrit) 38.1 % 34.0-50.0 Erythrocyte mean corpuscular volume 78.2 fL 78-98 [Entitic volume] (test code = 11440-0) Erythrocyte mean corpuscular 23.7 pg 26.2-33.4 L hemoglobin [Entitic mass] (test code = 75635-8) mean corpuscular HGB conc (test 30.3 g/dL 31.5-36.2 L code = mean corpuscular HGB conc) red cell distribution width (test 18.7 % 11.5-15.5 H code = red cell distribution width) Platelets [#/volume] in Blood (test 206 K/uL 137-338 code = 21596-2) Platelet mean volume [Entitic 7.7 fL 8.4-11.8 L volume] in Blood (test code = 67002-1) Neutrophils.band form/100 64.3 % 44.4-80.1 leukocytes in Blood (test code = 97584-8) Lymphocytes/100 leukocytes in Body 23.2 % 10.0-50.0 fluid (test code = 99433-2) Monocytes/100 leukocytes in Blood 8.2 % 3.6-12.04 by Automated count (test code = 5905-5) Eosinophils/100 leukocytes in Blood 3.3 % 0.0-5.41 by Automated count (test code = 713-8) Basophils/100 leukocytes in Blood 1.0 % 0.0-0.79 H by Automated count (test code = 706-2) [facility] panel, [id number] 04:57:00 NeutrophilsBandLymphocyteAtypical LymphMonocyteEosinophilBasophilPlatelet EstimatePlatelet MorphologyAnisocytosisToxic GranulationSmudge CellsGiant PlateletsNorth [facility] Medical CenterCB W Auto Differential panel - [id number] 04:57:00 Test Item Value Reference Range Interpretation Comments white blood count (test code = 7.6 K/uL 4.0-11.5 white blood count) red blood count (test code = red 4.88 M/uL 3.80-5.20 blood count) Hemoglobin [Mass/volume] in Blood 11.5 g/dL 10.5-15.7 (test code = 718-7) hematocrit (test code = hematocrit) 38.1 % 34.0-50.0 Erythrocyte mean corpuscular volume 78.2 fL 78-98 [Entitic volume] (test code = 55874-0) Erythrocyte mean corpuscular 23.7 pg 26.2-33.4 L hemoglobin [Entitic mass] (test code = 73144-4) mean corpuscular HGB conc (test 30.3 g/dL 31.5-36.2 L code = mean corpuscular HGB conc) red cell distribution width (test 18.7 % 11.5-15.5 H code = red cell distribution width) Platelets [#/volume] in Blood (test 206 K/uL 137-338 code = 98219-2) Platelet mean volume [Entitic 7.7 fL 8.4-11.8 L volume] in Blood (test code = 58528-2) Neutrophils.band form/100 64.3 % 44.4-80.1 leukocytes in Blood (test code = 53676-3) Lymphocytes/100 leukocytes in Body 23.2 % 10.0-50.0 fluid (test code = 60770-8) Monocytes/100 leukocytes in Blood 8.2 % 3.6-12.04 by Automated count (test code = 5905-5) Eosinophils/100 leukocytes in Blood 3.3 % 0.0-5.41 by Automated count (test code = 713-8) Basophils/100 leukocytes in Blood 1.0 % 0.0-0.79 H by Automated count (test code = 706-2) [facility] Centerdifferent[facility] panel, [id number] 04:57:00 NeutrophilsBandLymphocyteAtypical LymphMonocyteEosinophilBasophilPlatelet EstimatePlatelet MorphologyAnisocytosisToxic GranulationSmudge CellsGiant PlateletsNorth [facility] CenterPL[facility]2018-12-05 08:19:00 RUN DATE: 08/13/18 [facility] PAGE 1 RUN TIME: 1340 Specimen Inquiry RUN USER: INTERFACE PATIENT: LUZ GALLEGOS LOC: Park[place]RE[place] U #: [id number] AGE/SX: 23/F ROOM: [facility] RE08/09/18REG DR: Honey Maria MD : 93 BED: A DIS: 08/12/18 STATUS: DIS IN TLOC: SPEC #: [id number] RECD: 08/09/18 STATUS: NHI FERNANDEZ #: [id number] JOHNATHAN: 08/09/18 DR: Honey Maria MD ENTERED: 08/11/18 SP TYPE: PLACIII OTHR DR: ORDERED: LEVEL V SURGICA/3 CODES: [id number] - FALLOPIAN TUBE [id number] - PLACENTA, NOS PROCEDURES: LEVEL V SURGICA (Incomplete) TISSUES: PLACENTA, NOS - PLACENTA FALLOPIAN TUBE, NOS - BILATERAL FALLOPIAN TUBES CLINICAL HISTORY 23 year old, 37.3 weeks, [id number], section, IUGR (kr) FINAL DIAGNOSIS Right fallopian tube, sterilization salpingectomy: - unremarkable fallopian tube with complete transection Left fallopian tube, sterilization salpingectomy: - unremarkable fallopian tube with complete transection Placenta, 37.3 weeks gestational age, section: - third trimester placenta, 439 gm (30th percentile) withpatchy villous edema - trivascular umbilical cord and membranes free of inflammation Tissue code 1 CPT code(s): 04387 x2, 29754 [facility]/ksr GROSS DESCRIPTION ANATOMIC SOURCE OF TISSUE (per Requisition): 1. Bilateral fallopian tubes 2. Placenta Each specimen is labeled with the patient's name and medical record number. Specimen #1 is designated "right fallopian tube" and consists of an 11 x 0.3 x 0.2 cm segment of sams fallopian tube with fimbria. The entire fimbria and three cross-sections of the tube are submitted in A. Specimen #2 is yadiel gnated "left fallopian tube" and consists of two segments of CONTINUED ON NEXT PAGE RUN DATE: 08/13/18 [facility] PAGE 2 RUN TIME: 1340 Specimen Inquiry RUN USER: INTERFACE SPEC #: [id number] PATIENT: VAUGHN GALLEGOS #[id number] (Continued) GROSS DESCRIPTION (Continued) fallopian tube withno fimbria aggregating to 7 x 0.3 x 0.2 cm. Three sales representative meats cross-sections are submitted in B. Specimen #3 is designated "placenta". The following attributes are observed: Cord inse rtion: 6 cm from margin Cord length: 44 cm Number of vessels: 3 Cord color: Blue-sams Other cord findings: None surface findings: Steel blue, wrinkled, glistening Vasculature: Displays unremarkable blood vasculature Membranes rupture site: 0.0 cm to margin Membrane color: Sams Other membrane findings: Thickened and opaque The trimmed placental weight: 439 gm Disk measurement: 18 x 17 x 2.9 cm in greatest dimension Accessory lobes: None Maternal surface: Lobulated and intact Parenchyma: Red, beefy, and spongy Parenchyma lesions: None Cassettes: C through F hz/wpd 08/11/18 @ 1212 MICROSCOPIC DESCRIPTION Specimen #1 consists of a completely transected unremarkable fallopian tube with no atypia seen in the fimbriated end. Specimen #2 consists of a completely transected unremarkable fallopian tube. Specimen #3 - The trivascular umbilical cord and membranes free of inflammation. The villi have a third trimester morphology and there is patchy villous edema. No villitis or decidual vasculopathy identified. cosme/enrike Signed Jessica Gould MD 08/13/18 0819 END OF REPORT
--- OUTSIDE RECORDS SUMMARY | 2020-02-23 17:26 | XMS REPORT ---
:1995 Author Organization eClinicalWorks Care Team Providers Name Role Phone Iliana Hernandezh Provider Role Unavailable Allergies, Adverse Reactions, Alerts Substance Reaction Event Type Macrobid Rash Drug Allergy Problems Problem Type Condition Code Onset Dates Condition Statu s Problem Dysphagia, unspecified type R13.10 Active Problem GERD without esophagitis K21.9 Act gwendolyn Assessment Dysphagia, unspecified type R13.10 Active Assessment GERD without esophagitis K21.9 Act gwendolyn Assessment Other chest pain R07.89 Active Assessment Urinary tract infection without N39.0 Active hematuria, site unspecified Medications Medication Code Code Instructions Start End Date Status Dosage System Date Ferrous [facility] [address]-47 Active not Sulfate defined Sulfamethoxazo [facility] 44988784134 800-160 MG December Active 1 tablet le-Trimethopri Orally Twice a 2019 day Vitamin B12 [facility] [address] Active not defined Omeprazole [facility] [id number] 40 MG Orally Active 1 ca psule Once a day 30 minutes before morning meal Results No Known Results Summary Purpose eClinicalWorks Submission
[2020-02-23 17:49] LABS: ALT/SGPT 29 U/L (12-78); AST/SGOT 24 U/L (15-37); Alkaline Phosphatase 78 U/L (45-117); BUN Blood Urea Nitrogen 11 mg/dL (7-18); Bicarbonate 27 mmol/L (21-32); Bilirubin Total 0.5 mg/dL (0.2-1.0); Glucose Level 159 mg/dL (74-106); Potassium 3.8 mmol/L (3.5-5.1); Protein, Total 7.8 g/dL (6.4-8.2); Sodium Level 140 mmol/L (136-145); Troponin (Emerg Dept Use Only) < 0.02 ng/mL (0.0-0.045)
--- NOTE | 2020-02-23 18:07 | RAD REPORT ---
EXAM DESCRIPTION: RAD - Chest Single View - 02/23/2020 6:01 pm CLINICAL HISTORY: Cough;Chest pain Chest pain. COMPARISON: Chest Single View dated 11/25/2019; Chest For Pe Angio dated 11/25/2019 FINDINGS: Portable technique limits examination quality. The lungs are grossly clear. The heart is normal in size. No displaced fractures. IMPRESSION: No acute intrathoracic process suspected.
--- NOTE | 2020-02-23 18:14 | ER ---
Nurse's Notes [facility] Name: Eden Lopez Age: 24 yrs Sex: Female : 1995 Arrival Date: 02/23/2020 Time: 16:11 Bed 5 Private MD: Diagnosis: Anxiety disorder, unspecified Presentation: 02/22 16:11 Chief complaint: EMS states: called out for dizziness and numbness of left arm after em getting off the phone, on scene HR 146, also reports chest pain, rates pain 3/10, hx of anxiety attacks. Coronavirus screen: Proceed with normal triage. Patient denies a cough. Patient denies shortness of breath or difficulty breathing. Patient denies measured and/or subjective temperature greater than 100.4F prior to today's visit. Patient denies travel on a cruise ship or to a country the [facility] currently lists as an affected area. Patient denies contact with known and/or suspected case of COVID-19. Ebola Screen: Patient negative for fever greater than or equal to 101.5 degrees Fahrenheit, and additional compatible Ebola Virus Disease symptoms Patient denies exposure to infectious person. Patient denies travel to an Ebola-affected area in the 21 days before illness onset. No symptoms or risks identified at this time. Initial Sepsis Screen: Does the patient meet any 2 criteria? HR > 90 bpm. No. Patient's initial sepsis screen is negative. Does the patient have a suspected source of infection? No. Patient's initial sepsis screen is negative. Risk Assessment: Do you want to hurt yourself or someone else? Patient reports no desire to harm self or others. Onset of symptoms was February 23, 2020. 16:11 Method Of Arrival: EMS: [facility] em 16:11 Acuity: ELBERT 3 em Historical: - Allergies: 16:14 No Known Allergies; em - PMHx: 16:14 Endometriosis; Anxiety; em - PSHx: 16:14 ; em - Immunization history:: Adult Immunizations up to date. - Social history:: Smoking status: Patient denies any tobacco usage or history of. - Family history:: not pertinent. Screenin:15 Abuse screen: Denies threats or abuse. Nutritional screening: No deficits noted. em Tuberculosis screening: No symptoms or risk factors identified. Fall Risk None identified. Assessment: 16:15 General: Appears in no apparent distress. uncomfortable, Behavior is cooperative, em anxious, Denies fever. Pain: Complains of pain in chest Pain currently is 3 out of 10 on a pain scale. Neuro: Level of Consciousness is awake, alert, obeys commands, Oriented to person, place, time, situation, Appropriate for age Reports dizziness, paresthesias in left arm and left sternocleidomastoid. Cardiovascular: Capillary refill < 3 seconds Patient's skin is warm and dry. Rhythm is sinus tachycardia. Respiratory: Airway is patent Respiratory effort is even, unlabored, Respiratory pattern is regular, symmetrical. GI: Abdomen is flat, Patient currently denies nausea, vomiting. Derm: Skin is intact, is healthy with good turgor, Skin is pink, warm \T\ dry. Musculoskeletal: Capillary refill < 3 seconds, Range of motion: intact in all extremities. 17:00 Reassessment: Patient appears in no apparent distress at this time. Patient and/or em family updated on plan of care and expected duration. Pain level reassessed. Patient is alert, oriented x 3, equal unlabored respirations, skin warm/dry/pink. 18:03 Reassessment: Patient appears in no apparent distress at this time. Patient and/or em family updated on plan of care and expected duration. Pain level reassessed. Patient is alert, oriented x 3, equal unlabored respirations, skin warm/dry/pink. Patient states feeling better. Vital Signs: 16:11 BP 113 / 91; Pulse 126; Resp 22; Temp 97.8(O); Pulse Ox 99% on R/A; Weight 63.5 kg; em Height 5 ft. 2 in. (157.48 cm); Pain 3/10; 17:54 BP 105 / 74; Pulse 106; Resp 20; Pulse Ox 100% on R/A; em 16:11 Body Mass Index 25.61 (63.50 kg, 157.48 cm) em ED Course: 16:11 Patient arrived in ED. em 16:12 German Bruno MD is Attending Physician. [facility] 16:14 Triage completed. em 16:14 Arm band placed on. em 16:15 Patient has correct armband on for positive identification. Bed in low position. Call em light in reach. Pulse ox on. NIBP on. 16:17 Shiraz Perez, RN is Primary Nurse. em 16:22 Initial lab(s) drawn, by me, sent to lab. Inserted saline lock: 20 gauge in right em antecubital area, using aseptic technique. Blood collected. 18:02 Chest Single View XRAY In Process Unspecified. EDMI 18:16 Michel Chan MD is Referral Physician. stephie 18:39 No provider procedures requiring assistance completed. IV discontinued, intact, em bleeding controlled, No redness/swelling at site. Pressure dressing applied. Administered Medications: 16:47 Drug: Ativan 0.5 mg Route: IVP; Site: right antecubital; em 18:04 Follow up: Response: No adverse reaction; Marked relief of symptoms; Anxiety decreased em 18:34 Not Given (Other Intervention Used): Ativan 0.5 mg IVP once em Outcome: 18:14 Discharge ordered by . stephie 18:38 Discharged to home ambulatory, with family. em 18:38 Condition: good 18:38 Discharge instructions given to patient, family, Instructed on discharge instructions, follow up and referral plans. medication usage, Demonstrated understanding of instructions, follow-up care, medications, Prescriptions given X 1. 18:45 Patient left the ED. em Signatures: Dispatcher [employer] German Morgan MD MD cha Munoz, Edgar, RN RN em
--- NOTE | 2020-02-23 18:14 | EDPHYS ---
Physician Documentation [facility] Name: Eden Lopez Age: 24 yrs Sex: Female : 1995 Arrival Date: 02/23/2020 Time: 16:11 Bed 5 Private MD: ED Physician German Bruno HPI: 02/22 16:34 This 24 yrs old Female presents to ER via EMS with complaints of Dizziness. stephie 16:34 The patient presents with dizziness, feeling faint. Onset: The symptoms/episode stephie began/occurred just prior to arrival. Context: occurred at home, occurred while the patient was sitting. Modifying factors: The symptoms are alleviated by nothing, the symptoms are aggravated by nothing. Associated signs and symptoms: The patient has no apparent associated signs or symptoms. Severity of symptoms: At their worst the symptoms were mild in the emergency department the symptoms have improved. Patient's baseline: Neuro: alert and fully oriented. The patient has not experienced similar symptoms in the past. Historical: - Allergies: 16:14 No Known Allergies; em - PMHx: 16:14 Endometriosis; Anxiety; em - PSHx: 16:14 ; em - Immunization history:: Adult Immunizations up to date. - Social history:: Smoking status: Patient denies any tobacco usage or history of. - Family history:: not pertinent. ROS: 16:34 Constitutional: Negative for fever, chills, and weight loss, Eyes: Negative for injury, stephie pain, redness, and discharge, ENT: Negative for injury, pain, and discharge, Neck: Negative for injury, pain, and swelling, Respiratory: Negative for shortness of breath, cough, wheezing, and pleuritic chest pain, Abdomen/GI: Negative for abdominal pain, nausea, vomiting, diarrhea, and constipation, Back: Negative for injury and pain, : Negative for injury, bleeding, discharge, and swelling, MS/Extremity: Negative for injury and deformity, Skin: Negative for injury, rash, and discoloration, Psych: Negative for depression, anxiety, suicide ideation, homicidal ideation, and hallucinations, Allergy/Immunology: Negative for hives, rash, and allergies, Endocrine: Negative for neck swelling, polydipsia, polyuria, polyphagia, and marked weight changes, Hematologic/Lymphatic: Negative for swollen nodes, abnormal bleeding, and unusual bruising. 16:34 Cardiovascular: Positive for palpitations. 16:34 Neuro: Positive for dizziness. Exam: 16:34 Constitutional: This is a well developed, well nourished patient who is awake, alert, stephie and in no acute distress. Head/Face: Normocephalic, atraumatic. Eyes: Pupils equal round and reactive to light, extra-ocular motions intact. Lids and lashes normal. Conjunctiva and sclera are non-icteric and not injected. Cornea within normal limits. Periorbital areas with no swelling, redness, or edema. ENT: Nares patent. No nasal discharge, no septal abnormalities noted. Tympanic membranes are normal and external auditory canals are clear. Oropharynx with no redness, swelling, or masses, exudates, or evidence of obstruction, uvula midline. Mucous membranes moist. Neck: Trachea midline, no thyromegaly or masses palpated, and no cervical lymphadenopathy. Supple, full range of motion without nuchal rigidity, or vertebral point tenderness. No Meningismus. Chest/axilla: Normal chest wall appearance and motion. Nontender with no deformity. No lesions are appreciated. Respiratory: Lungs have equal breath sounds bilaterally, clear to auscultation and percussion. No rales, rhonchi or wheezes noted. No increased work of breathing, no retractions or nasal flaring. Abdomen/GI: Soft, non-tender, with normal bowel sounds. No distension or tympany. No guarding or rebound. No evidence of tenderness throughout. Back: No spinal tenderness. No costovertebral tenderness. Full range of motion. Pelvic Exam: Normal external genitalia. Speculum exam with closed cervical os, no discharge or bleeding noted. Bimanual exam with normal adnexa, no adnexal or cervical motion tenderness. Normal uterus. Female : Normal external genitalia. 16:34 Cardiovascular: Rate: tachycardic, Rhythm: regular, Pulses: Pulses are 4+ in bilateral radial, brachial, femoral, popliteal, posterior tibial and and dorsalis pedis arteries.. Edema: is not appreciated, JVD: is not appreciated. 16:34 Musculoskeletal/extremity: DVT Exam: No signs of deep vein thrombosis. no pain, no swelling, no tenderness, negative Homans' sign noted on exam, no appreciated bluish discoloration, no erythema, no increased warmth. 16:39 ECG was reviewed by the Attending Physician. [facility] Vital Signs: 16:11 BP 113 / 91; Pulse 126; Resp 22; Temp 97.8(O); Pulse Ox 99% on R/A; Weight 63.5 kg; em Height 5 ft. 2 in. (157.48 cm); Pain 3/10; 17:54 BP 105 / 74; Pulse 106; Resp 20; Pulse Ox 100% on R/A; em 16:11 Body Mass Index 25.61 (63.50 kg, 157.48 cm) em MDM: 16:12 Patient medically screened. [facility] 16:37 Differential diagnosis: cardiac arrhythmia, generalized weakness, hyperventilation, stephie hypovolemia, idiopathic dizziness, near-syncope, . 16:37 Data reviewed: vital signs, nurses notes, lab test result(s), EKG, radiologic studies, [facility] plain films. 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 18:15 Test interpretation: by ED physician or midlevel provider: plain radiologic studies. [facility] Counseling: I had a detailed discussion with the patient and/or guardian regarding: the historical points, exam findings, and any diagnostic results supporting the discharge/admit diagnosis, lab results, radiology results, the need for outpatient follow up, for definitive care, a family practitioner. ED course: all labs discussed, follow up pcp/fp, return if symptoms increase or persist. 02/22 16:33 Order name: CBC with Diff; Complete Time: 18:11 [facility] 02/22 16:33 Order name: Comprehensive Metabolic Panel; Complete Time: 18:11 [facility] 02/22 16:33 Order name: D-Dimer; Complete Time: 18:11 [facility] 02/22 16:33 Order name: UDS; Complete Time: 18:11 [facility] 02/22 16:33 Order name: Troponin (emerg Dept Use Only); Complete Time: 18:11 [facility] 02/22 17:15 Order name: Urine Dipstick--Ancillary (enter results) 02/22 16:33 Order name: EKG; Complete Time: 16:34 [facility] 02/22 16:33 Order name: EKG - Nurse/Tech; Complete Time: 16:36 [facility] 02/22 16:33 Order name: Urine Dipstick-Ancillary (obtain specimen); Complete Time: 16:50 [facility] 02/22 16:33 Order name: Urine Test (obtain specimen); Complete Time: 16:50 [facility] 02/22 16:33 Order name: Chest Single View XRAY [facility] 02/22 17:15 Order name: Urine --Ancillary (enter results) eb EC:39 Rate is 112 beats/min. Rhythm is regular. QRS [place] is Normal. AL interval is normal. stephie QRS interval is normal. QT interval is normal. No Q waves. T waves are Normal. No ST changes noted. Clinical impression: Sinus tachycardia and No evidence of ischemia. Interpreted by me. Reviewed by me. Administered Medications: 16:47 Drug: Ativan 0.5 mg Route: IVP; Site: right antecubital; em 18:04 Follow up: Response: No adverse reaction; Marked relief of symptoms; Anxiety decreased em 18:34 Not Given (Other Intervention Used): Ativan 0.5 mg IVP once em Disposition: 02/23/20 18:14 Discharged to Home. Impression: Anxiety disorder, unspecified. - Condition is Stable. - Discharge Instructions: Panic Attacks, Panic Attacks, [id number], Generalized Anxiety Disorder. - Prescriptions for Hydroxyzine HCl 25 mg Oral Tablet - take 1 tablet by ORAL route every 6 hours As needed; 26 tablet. - Medication Reconciliation Form, Thank You Letter, Antibiotic Education, Prescription Opioid Use form. - Follow up: Private Physician; When: 2 - 3 days; Reason: Recheck today's complaints, Continuance of care, Re-evaluation by your physician. Follow up: Michel Chan MD; When: 2 - 3 days; Reason: Recheck today's complaints, Re-evaluation by your physician. - Problem is new. - Symptoms have improved. Signatures: Dispatcher [employer] EDGerman Nascimento MD MD cha Munoz, Edgar RN RN em Corrections: (The following items were deleted from the chart) 18:17 18:14 02/23/2020 18:14 Discharged to Home. Impression: Anxiety disorder, unspecified. [facility] Condition is Stable. Forms are Medication Reconciliation Form, Thank You Letter, Antibiotic Education, Prescription Opioid Use. Follow up: Private Physician; When: 2 - 3 days; Reason: Recheck today's complaints, Continuance of care, Re-evaluation by your physician. Problem is new. Symptoms have improved. [facility] 18:45 18:17 02/23/2020 18:14 Discharged to Home. Impression: Anxiety disorder, unspecified. em Condition is Stable. Discharge Instructions: Panic Attacks, Panic Attacks, [id number], Generalized Anxiety Disorder. Prescriptions for Benadryl 25 mg Oral Capsule - take 1 capsule by ORAL route every 6 hours As needed; 24 tablet. and Forms are Medication Reconciliation Form, Thank You Letter, Antibiotic Education, Prescription Opioid Use. Follow up: Private Physician; When: 2 - 3 days; Reason: Recheck today's complaints, Continuance of care, Re-evaluation by your physician. Follow up: Michel Chan; When: 2 - 3 days; Reason: Recheck today's complaints, Re-evaluation by your physician. Problem is new. Symptoms have improved. stephie
[2020-02-23 18:55] VITALS: TEMP 97.8
[2020-02-23 18:56] VITALS: BP 105/74; O2SAT 100
[2020-02-23 19:03] LABS: Urine Blood 1+ (NEG); Urine Glucose NEGATIVE (NEG); Urine Protein NEGATIVE (NEG); Urine Specific Gravity 1.025 (1.005-1.030); Urine pH 6.5 (5.0-7.0)
--- NOTE | 2020-02-24 10:56 | EKG ---
Test Date: 2020-02-23 Test Time: 16:29:11 Logging Worker: ANA LAURA MEASUREMENT RESULTS: Intervals: Rate: 112 CA: 150 QRSD: 84 QT: 328 QTc: 447 [place]: P: 67 CA: 150 QRS: 96 T: 64 INTERPRETIVE STATEMENTS: Sinus tachycardia Rightward axis Borderline ECG Compared to ECG 11/25/2019 12:40:20 Sinus rhythm no longer present Atrial abnormality no longer present Electronically Signed On 02-24-20 10:56:00 CDT by Stew Fernández
== END 2020-02-23 18:45 | disposition home or self-care (01) ==
LOC: ER 16:10
DX: F41.9 Anxiety disorder, unspecified (principal)
CPT/HCPCS: 36415; 71045; 80053; 80307; 81003; 81025; 84484; 85025; 85379; 93005; 96374; 99284

== ENCOUNTER 2020-04-09 17:56 | Emergency (ER) | payer OTHER ==
--- OUTSIDE RECORDS SUMMARY | 2020-04-09 17:58 | XMS REPORT ---
:1995 Author Organization eClinicalWorks Care Team Providers Name Role Phone Iliana Hernandezh Provider Role Unavailable Allergies, Adverse Reactions, Alerts Substance Reaction Event Type Macrobid Rash Drug Allergy Problems Problem Type Condition Code Onset Dates Condition Statu s Assessment Chest pain, unspecified type R07.9 Active Assessment Panic disorder [episodic paroxysmal F41.0 Active anxiety] Assessment Generalized anxiety disorder F41.1 Active Problem Panic disorder [episodic paroxysmal F41.0 Active anxiety] Problem GERD without esophagitis K21.9 Act gwendolyn Problem Generalized anxiety disorder F41.1 Active Assessment Well adult on routine health check Z00.00 Active Assessment GERD without esophagitis K21.9 Act gwendolyn Problem Dysphagia, unspecified type R13.10 Active Medications Medication Code Code Instructions Start End Status Dosage System Date Date Vitamin B12 [facility] [place] [address] Active not defined Ferrous [facility] [place] [address]-08 Active not Sulfate defined Vistaril [facility] [place] [id number] 25 MG Orally March 16, Active 1 cap elias every 8 hrs PRN 2019 as neede d ANXIETY Omeprazole [facility] [place] 01165373343 40 MG Orally Active 1 ca psule Once a day 30 minutes before morning meal Omeprazole [facility] 19606495083 40 MG Active TAKE 1 CAPSULE BY MOUTH 30 MINUTES BEFORE MORNING MEAL ONCE A DAY Results No Known Results Summary Purpose eClinicalWorks Submission
--- OUTSIDE RECORDS SUMMARY | 2020-04-09 17:58 | XMS REPORT ---
:1995 Author Organization eClinicalWorks Care Team Providers Name Role Phone Hernandez Tadeo Provider Role Unavailable Allergies, Adverse Reactions, Alerts Substance Reaction Event Type Macrobid Rash Drug Allergy Problems Problem Type Condition Code Onset Dates Condition Statu s Assessment Mixed hyperlipidemia E78.2 Active Assessment Panic disorder [episodic paroxysmal F41.0 Active anxiety] Assessment Generalized anxiety disorder F41.1 Active Assessment Abdominal bloating R14.0 Active Assessment Chest pain, unspecified type R07.9 Active Assessment Left shoulder pain, unspecified M25.512 Active chronicity Problem Panic disorder [episodic paroxysmal F41.0 Active anxiety] Problem Generalized anxiety disorder F41.1 Active Problem Mixed hyperlipidemia E78.2 Active Assessment GERD without esophagitis K21.9 Act gwendolyn Problem GERD without esophagitis K21.9 Act gwendolyn Problem Dysphagia, unspecified type R13.10 Active Medications Medication Code Code Instructions Start End Status Dosage System Date Date Omeprazole [facility] 35638125935 40 MG Orally Inactive 1 c apsule Once a day 30 minutes before morning meal Ferrous [facility] [address]-57 Active not Sulfate defined Vistaril [facility] 36607777687 25 MG Orally Active 1 caps ule every 8 hrs PRN as neede d ANXIETY Omeprazole [facility] 87895562876 40 MG Active TAKE 1 CAPSULE BY MOUTH 30 MINUTES BEFORE MORNING MEAL ONCE A DAY Vitamin B12 [facility] [address] Active not defined Results No Known Results Summary Purpose eClinicalWorks Submission
--- OUTSIDE RECORDS SUMMARY | 2020-04-09 17:58 | XMS REPORT | Continuity of Care Document ---
:1995 Author Organization [facility] t Address [address] [place] [address] Care Team Providers Name Role Phone Unavailable [...] - d type d type [facility] GERD GERD Problem Active [facility] without without [facility] esophagiti esophagiti Me moria s [facility] Chest Chest Diagnosis Active [facility] pain, pain, [facility] - unspecifie unspecifie Me moria d type d type l [facility] Panic Panic Problem Active [facility] disorder disorder [facility] - [episodic [episodic Avtar cherelle paroxysmal paroxysmal l anxiety] anxiety] Outpat i ent Clinics Generalize Generalize Problem Active [facility] d anxiety d anxiety [facility] - disorder disorder [facility] Mixed Mixed Problem Active [facility] hyperlipid hyperlipid Thuy kes - emia emia [facility] Abdominal Abdominal Diagnosis Active [facility] bloating bloating [facility] Left Left Diagnosis Active [facility] shoulder shoulder [facility] - pain, pain, Memoria unspecifie unspecifie l d d [facility] Allergies, Adverse Reactions, Alerts Allergy Allergy Status Severity Reaction(s) Onset Inactive Treating Comm ents Source Name Type Date Date Clinician nitrofur DA Active [facility] [place] Macrobid Adverse Active Rash [facility] Reaction [facility] House Allergy Active [facility] Nitrofur Allergy Active [facility] TREE AND Allergy Active [facility] to da [facility] Social History Smoking Status Start Date Stop Date Source Never Smoker [facility] Medications Ordered Filled Start Stop Current Ordering Indication Dosage Frequency Signature Comments Components Source Medication Medication Date Date Medication? Clinician (SIG) Name Name Vistaril Vistaril Yes Tadeo [address] [facility]08 [facility] as needed [facility] - 00:[facility]: [facility] 00 l Outpat[facility] Clinics Omeprazole Omeprazole Yes Tadeo [address] [facility] Hernandez 30 minutes [facility] - 00:00: before Memoria 00 morning l meal Outpati ent Clinics Vitamin B12 Vitamin B12 Yes Tadeo not [facility] defined [facility] Ferrous Ferrous Yes Tadeo not [facility] Sulfate Sulfate [facility] defined [facility] Omeprazole Omeprazole Yes Tadeo TAKE [address] [facility] Hernandez CAPSULE BY [facility] - MOUTH 30 Memoria MINUTES l BEFORE Outpati MORNING ent MEAL ONCE Clinics A DAY Zithromax Zithromax No Zithromax [facility] 250 Z-Edin 250 Z-Edin 250 da [...] Source BP Diastolic 2018-11-03 00:00:00 70 mm[Hg] [facility] Height 2018-11-03 00:00:00 62 [in_i[facility] BMI (Body Mass 2018-11-03 00:00:00 23 kg/m2 [facility] BP Systolic 2018-11-03 00:00:00 105 mm[Hg] [facility] Body Weight 2018-11-03 00:00:00 126 [lb_av] [facility] BP Diastolic 2018-10-30 00:00:00 72 mm[Hg] [facility] Height 2018-10-30 00:00:00 62 [in_i] [facility] BMI (Body Mass 2018-10-30 00:00:00 23 kg/m2 [facility] BP Systolic 2018-10-30 00:00:00 102 mm[Hg] [facility] Body Weight 2018-10-30 00:00:00 2009 [oz_av] [facility] BP Diastolic 2018-10-20 00:00:00 60 mm[Hg] [facility] Height 2018-10-20 00:00:00 62 [in_i] [facility] BMI (Body Mass 2018-10-20 00:00:00 23.6 kg/m2 [facility] BP Systolic 2018-10-20 00:00:00 120 mm[Hg] [facility] Body Weight 2018-10-20 00:00:00 129 [lb_av] [facility] BP Diastolic 2018-09-25 00:00:00 65 mm[Hg] [facility] Height 2018-09-25 00:00:00 62 [in_i] [facility] BMI (Body Mass 2018-09-25 00:00:00 23.6 kg/m2 [facility] BP Systolic 2018-09-25 00:00:00 120 mm[Hg] [facility] Body Weight 2018-09-25 00:00:00 129 [lb_av] [facility] BP Diastolic 2018-09-22 00:00:00 70 mm[Hg] [facility] Height 2018-09-22 00:00:00 62 [in_i] [facility] BMI (Body Mass 2018-09-22 00:00:00 23.7 kg/m2 [facility] BP Systolic 2018-09-22 00:00:00 108 mm[Hg] [facility] Body Weight 2018-09-22 00:00:00 2069 [oz_av] [facility] Procedures Procedure Date / Time Performing Clinician Source Performed NM, hepatobiliary scan, 2018-10-21 00:00:00 [facility] CT, abdomen, w/wo 2018-10-01 00:00:00 [facility] unlisted imaging order 2018-09-25 00:00:00 [facility] Caesarean Section 2017-10-07 00:00:00 [facility] Ovarian Cystectomy [facility] Plan of Care Planned Activity Planned Date Details Comments Source Instructions [facility] Encounters Start End Encounter Admission Attending Care Care Encounter Source Date/Time Date/Time Type Type Clinicians Facility Department ID 2020-04-06 2020-04-06 [facility] [id number] [facility] 15:15:00 15:15:00 [facility] l Medicine Outpati ent Clinics 2020-03-16 2020-03-16 [facility] [id number] [facility] 11:15:00 11:15:00 t [facility] l Medicine Outpati ent Clinics 2020-01-08 2020-01-08 [facility] [id number] [facility] 14:46:00 14:46:00 [facility] l Medicine Outpati ent Clinics 2019-12-28 2019-12-28 [facility] [id number] [address] 15:15:00 15:15:00 [facility] l Medicine Outpati ent Clinics 2019-11-27 2019-11-27 [facility] [id number] [facility] 11:00:00 11:00:00 t [facility] l Medicine Outpati ent Clinics 2019-11-25 2019-11-25 [facility] [id number] 11:00:00 11:00:00 t [facility] Medicine l Medicine Outpati ent Clinics 2018-11-18 2018-11-18 Emergency E [facility] [id number] [facility] 21:14:00 21:14:00 2018-11-03 2018-11-03 Hang VELÁZQUEZ [place] - [id number] Reji jackson 00:00:00 00:00:00 Ryan DO: Discovery randell garcia [address] [place] [address] - [address], [facility], [place] [address] , Ph. [phone] 2018-10-30 2018-10-30 Truman [facility] [place] - [id number] [facility] 00:00:00 00:00:00 [facility] MD: [address] [place] [address] [address], [place] [address] , Ph. 2018-10-25 2018-10-25 Emergency E [facility] [id number] [facility] 01:55:00 01:55:00 2018-10-20 2018-10-20 Hang LUIS [place] - [id number] M [facility] 00:00:00 00:00:00 Ryna DO: [facility] randell garcia [address] [place] [address], [facility], [place] [address] , Ph. [phone] 2018-09-25 2018-09-25 Hang LUIS [place] - [id number] M at[facility]or 00:00:00 00:00:00 Ryan, DO: [facility] randell garcia [address] [place] [address], [facility] [place] [address] , Ph. [phone] 2018-09-22 2018-09-22 Truman TOBY [place] - [id number] [facility] 00:00:00 00:00:00 Harvey Diaz Medical MD: [address] [place] [address], [place] [address] , Ph. Results Test Description Test Time Test Comments Results Result Comments Source test, urine 2018-09-23 05:27:00 Test Item Value Reference Range Interpretation Comme nts Choriogonadotropin ( test) [Presence] in Urine (tessa t code = negative neg 6-3) [facility] - [id number] 05:27:00 Test Item Value Reference Range Interpretation Comments Color of Urine by Auto (test yellow code = 42198-9) Appearance of Urine (test code clear clear = 5767-9) Glucose [Presence] in Urine by negative negative Automated test strip (test code = 20073-7) Bilirubin.total [Mass/volume] negative negative in Urine (test code = 1978-6) Ketones [Mass/volume] in Urine =2 negative H by Automated test strip (test code = 41120-2) Specific gravity of Urine by 1.034 1.003-1.030 H Automated test strip (test code = 56107-5) blood urine (test code = blood negative negative urine) pH of Urine (test code = 5.500 5-9 2756-5) protein urine (UA) (test code = trace negative protein urine (UA)) Urobilinogen [Presence] in =2.0 0.2-1.0 H Urine (test code = 70247-5) Nitrite [Presence] in Urine by negative negative Test strip (test code = 5802-4) Leukocyte esterase [Presence] =2 negative H in Urine by Automated test strip (test code = 12503-1) Erythrocytes [#/volume] in =1-5 0-5 Urine by Automated count (test code = 798-9) Leukocytes [#/area] in Urine =1-5 0-5 sediment by Automated count (test code = 56749-4) Epithelial cells [Presence] in =1-5 0-5 Urine sediment by Light microscopy (test code = 04986-9) Bacteria identified in Urine by none detected none detect Culture (test code = 630-4) Casts [#/area] in Urine =2-5 none detect sediment by Automated count (test code = 19800-1) urine culture added? (test code yes = urine culture added?) [facility] in Urine by [id number] 05:27:00Bacteria Ur CultMagee General Hospitalantibiotic sensitivity testing, [id number] 05:27:00 Test Item Value Reference Range Interpretation [...] Minimum inhibitory concentration (HEATHER) (test code = 42600-8) Piperacillin+Tazobactam <16 [Susceptibility] by Minimum inhibitory concentration (HEATHER) (test code = 412-7) Ceftazidime [Susceptibility] by Minimum <1 inhibitory concentration (HEATHER) (test code = 133-9) Ceftriaxone [Susceptibility] by Minimum <8 inhibitory concentration (HETAHER) (test code = 141-2) Ciprofloxacin [Susceptibility] by <1 Minimum inhibitory concentration (HEATHER) (test code = 185-9) Imipenem [Susceptibility] by Minimum <4 inhibitory concentration (HEATHER) (test code = 279-0) Ampicillin+Sulbactam [Susceptibility] =8/4 by Minimum inhibitory concentration (HEATHER) (test code = 32-3) Ertapenem [Susceptibility] by Minimum <2 inhibitory concentration (HEATHER) (test code = 90798-8) Aztreonam [Susceptibility] by Minimum <8 inhibitory concentration (HEATHER) (test code = 44-8) [id number] (test code = cwp0888) <4 Meropenem [Susceptibility] by Minimum <4 inhibitory concentration (HEATHER) (test code = 6652-2) [facility], [id number] 05:27:00 Test Item Value Reference Range Interpretation Comments Choriogonadotropin ( test) negative neg [Presence] in Urine (test code = 2106-3) [facility] complete panel - [id number] 05:27:00 Test Item Value Reference Range Interpretation Comments Color of Urine by Auto (test yellow code = 21878-0) Appearance of Urine (test code clear clear = 5767-9) Glucose [Presence] in Urine by negative negative Automated test strip (test code = 57568-1) Bilirubin.total [Mass/volume] negative negative in Urine (test code = 1978-6) Ketones [Mass/volume] in Urine =2 negative H by Automated test strip (test code = 15575-7) Specific gravity of Urine by 1.034 1.003-1.030 H Automated test strip (test code = 57552-7) blood urine (test code = blood negative negative urine) pH of Urine (test code = 5.500 5-9 2756-5) protein urine (UA) (test code = trace negative protein urine (UA)) Urobilinogen [Presence] in =2.0 0.2-1.0 H Urine (test code = 78438-8) Nitrite [Presence] in Urine by negative negative Test strip (test code = 5802-4) Leukocyte esterase [Presence] =2 negative H in Urine by Automated test strip (test code = 02217-8) Erythrocytes [#/volume] in =1-5 0-5 Urine by Automated count (test code = 798-9) Leukocytes [#/area] in Urine =1-5 0-5 sediment by Automated count (test code = 98531-0) Epithelial cells [Presence] in =1-5 0-5 Urine sediment by Light microscopy (test code = 22173-6) Bacteria identified in Urine by none detected none detect Culture (test code = 630-4) Casts [#/area] in Urine =2-5 none detect sediment by Automated count (test code = 41854-4) urine culture added? (test code yes = urine culture added?) [facility] identified in Urine by [id number] 05:27:00Bacteria Ur CultMitast. vincent's medical center Medical Groupantibiotic sensitivity testing, [id number] 05:27:00 Test Item Value Reference Range Interpretation Comments Gentamicin [Susceptibility] by Minimum <4 inhibitory concentration (HEATHER) (test code = 267-5) Ampicillin [Susceptibility] by Minimum >16 inhibitory concentration (HEATHER) (test code = 28-1) Cefazolin [Susceptibility] by Minimum <8 inhibitory concentration (HEATHER) (test code = 76-0) Trimethoprim+Sulfamethoxazole = [Susceptibility] by Minimum inhibitory concentration (HEATHER) (test [...] Minimum inhibitory concentration (HEATHER) (test code = 95604-1) Piperacillin+Tazobactam <16 [Susceptibility] by Minimum inhibitory concentration [...] <2 inhibitory concentration (HEATHER) (test code = 58979-4) Aztreonam [Susceptibility] by Minimum <8 inhibitory concentration (HEATHER) (test code = 44-8) [id number] (test code = lub5134) <4 Meropenem [Susceptibility] by Minimum <4 inhibitory concentration (HEATHER) (test code = 6652-2) [facility] W Auto Differential panel - [id number] 04:57:00 Test Item Value Reference Range Interpretation Comments white blood count (test code = 7.6 K/uL 4.0-11.5 white blood count) red blood count (test code = red 4.88 M/uL 3.80-5.20 blood count) Hemoglobin [Mass/volume] in Blood 11.5 g/dL 10.5-15.7 (test code = 718-7) hematocrit (test code = hematocrit) 38.1 % 34.0-50.0 Erythrocyte mean corpuscular volume 78.2 fL 78-98 [Entitic volume] (test code = 19289-3) Erythrocyte mean corpuscular 23.7 pg 26.2-33.4 L hemoglobin [Entitic mass] (test code = 92116-9) mean corpuscular HGB conc (test 30.3 g/dL 31.5-36.2 L code = mean corpuscular HGB conc) red cell distribution width (test 18.7 % 11.5-15.5 H code = red cell distribution width) Platelets [#/volume] in Blood (test 206 K/uL 137-338 code = 73853-2) Platelet mean volume [Entitic 7.7 fL 8.4-11.8 L volume] in Blood (test code = 37337-2) Neutrophils.band form/100 64.3 % 44.4-80.1 leukocytes in Blood (test code = 87732-3) Lymphocytes/100 leukocytes in Body 23.2 % 10.0-50.0 fluid (test code = 15771-0) Monocytes/100 leukocytes in Blood 8.2 % 3.6-12.04 by Automated count (test code = 5905-5) Eosinophils/100 leukocytes in Blood 3.3 % 0.0-5.41 by Automated count (test code = 713-8) Basophils/100 leukocytes in Blood 1.0 % 0.0-0.79 H by Automated count (test code = 706-2) [facility], [id number] 04:57:00 NeutrophilsBandLymphocyteAtypical LymphMonocyteEosinophilBasophilPlatelet EstimatePlatelet MorphologyAnisocytosisToxic GranulationSmudge CellsGiant PlateletsMagee General HospitalCB W Auto Differential panel - [id number] 04:57:00 Test Item Value Reference Range Interpretation Comments white blood count (test code = 7.6 K/uL 4.0-11.5 white blood count) red blood count (test code = red 4.88 M/uL 3.80-5.20 blood count) Hemoglobin [Mass/volume] in Blood 11.5 g/dL 10.5-15.7 (test code = 718-7) hematocrit (test code = hematocrit) 38.1 % 34.0-50.0 Erythrocyte mean corpuscular volume 78.2 fL 78-98 [Entitic volume] (test code = 09036-9) Erythrocyte mean corpuscular 23.7 pg 26.2-33.4 L hemoglobin [Entitic mass] (test code = 84619-8) mean corpuscular HGB conc (test 30.3 g/dL 31.5-36.2 L code = mean corpuscular HGB conc) red cell distribution width (test 18.7 % 11.5-15.5 H code = red cell distribution width) Platelets [#/volume] in Blood (test 206 K/uL 137-338 code = 32367-2) Platelet mean volume [Entitic 7.7 fL 8.4-11.8 L volume] in Blood (test code = 78932-1) Neutrophils.band form/100 64.3 % 44.4-80.1 leukocytes in Blood (test code = 03590-7) Lymphocytes/100 leukocytes in Body 23.2 % 10.0-50.0 fluid (test code = 38060-4) Monocytes/100 leukocytes in Blood 8.2 % 3.6-12.04 by Automated count (test code = 5905-5) Eosinophils/100 leukocytes in Blood 3.3 % 0.0-5.41 by Automated count (test code = 713-8) Basophils/100 leukocytes in Blood 1.0 % 0.0-0.79 H by Automated count (test code = 706-2) [facility] Hospitaldifferent[facility] panel, [id number] 04:57:00 NeutrophilsBandLymphocyteAtypical LymphMonocyteEosinophilBasophilPlatelet EstimatePlatelet MorphologyAnisocytosisToxic GranulationSmudge CellsGiant PlateletsMaAllegiance [facility] Hospital of GreenvilleNT THIRD [id number] 08:19:00 RUN DATE: 08/13/18 [facility] PAGE 1 RUN TIME: 1340 Specimen Inquiry RUN USER: INTERFACE PATIENT: LUZ GALLEGOS LOC: SIVAKUMAR U #: [id number] AGE/SX: 23/F ROOM: [facility] RE08/09/18REG DR: Honey Maria MD : 93 BED: A DIS: 08/12/18 STATUS: DIS IN TLOC: SPEC #: [id number] RECD: 08/09/18 STATUS: NHI REQ #: [id number] JOHNATHAN: 08/09/18- SUBM DR: Honey Maria MD ENTERED: 08/11/18 SP TYPE: PLACIII [place]: ORDERED: LEVEL V SURGICA/3 CODES: S83017 - FALLOPIAN TUBE [id number] - PLACENTA, NOS PROCEDURES: LEVEL V SURGICA (Incomplete) TISSUES: PLACENTA, NOS - PLACENTA FALLOPIAN TUBE, NOS - BILATERAL FALLOPIAN TUBES CLINICAL HISTORY 23 year old, 37.3 weeks, [id number], section, IUGR (kr) FINAL DIAGNOSIS Right fallopian tube, sterilization salpingectomy: - unremarkable fallopian tube with complete transection Left fallopian tube, sterilization salpingectomy: - unremarkable fallopian tube with complete transection Placenta, 37.3 weeks gestational age, section: - third trimester placenta, 439 gm (30th percentile) withpatchy villous edema - trivascular umbilical cord and membranes free of inflammation Tissue code 1 CPT code(s): 16046 x2, 37651 [facility]/ksr GROSS DESCRIPTION ANATOMIC SOURCE OF TISSUE (per [...] Specimen Inquiry RUN USER: INTERFACE SPEC #: [id number] PATIENT: TERESITA GALLEGOSLOYD #[id number] (Continued) GROSS DESCRIPTION (Continued) fallopian tube withno fimbria aggregating to 7 x 0.3 x 0.2 cm. Three representative government relations cross-sections are submitted in B. Specimen #3 [...]
[2020-04-09] MEDS ORDERED: NA CHLORIDE 0.9% 1,000 ML ONE (19:17)
[2020-04-09 19:33] LABS: Absolute Lymphocytes (CBC) 1.5 K/uL (0.7-4.9); Basophils % 0.5 % (0-1.3); Hematocrit 44.4 % (36.0-45.0); Lymphocytes % 19.8 % (15.3-44.8); RBC Red Blood Cell Count 5.17 M/uL (3.86-4.86)
[2020-04-09 19:35] LABS: Protime INR 1.07
[2020-04-09 19:50] LABS: ALT/SGPT 24 U/L (12-78); AST/SGOT 17 U/L (15-37); Albumin 4.5 g/dL (3.4-5.0); Alkaline Phosphatase 70 U/L (45-117); BUN Blood Urea Nitrogen 8 mg/dL (7-18); Bicarbonate 26 mmol/L (21-32); Bilirubin Direct 0.1 mg/dL (0-0.2); Bilirubin Total 0.5 mg/dL (0.2-1.0); Glucose Level 91 mg/dL (74-106); NT PRO-BNP 25 pg/mL (<125); Potassium 3.9 mmol/L (3.5-5.1); Protein, Total 8.3 g/dL (6.4-8.2); Sodium Level 140 mmol/L (136-145); Troponin (Emerg Dept Use Only) < 0.02 ng/mL (0.0-0.045)
--- NOTE | 2020-04-09 19:52 | RAD REPORT ---
EXAM DESCRIPTION: RAD - Chest Single View - 04/09/2020 7:43 pm CLINICAL HISTORY: CHEST PAIN Chest pain. COMPARISON: Chest Single View dated 02/23/2020; Chest Single View dated 11/25/2019 FINDINGS: Portable technique limits examination quality. The lungs are grossly clear. The heart is normal in size. No displaced fractures. IMPRESSION: No acute intrathoracic process suspected.
[2020-04-09 20:00] LABS: Urine Blood TRACE (NEG); Urine Glucose NEGATIVE (NEG); Urine Protein NEGATIVE (NEG)
[2020-04-09 20:15] LABS: Barbiturates NEGATIVE (NEGATIVE); Benzodiazepines NEGATIVE (NEGATIVE); Cocaine NEGATIVE (NEGATIVE); METHAMPHETAM NEGATIVE (NEGATIVE); Methadone NEGATIVE (NEGATIVE); Opiates NEGATIVE (NEGATIVE); Phencyclidine NEGATIVE (NEGATIVE); THC Cannibis NEGATIVE (NEGATIVE)
--- NOTE | 2020-04-09 20:37 | ER ---
Nurse's Notes [facility] Name: Eden Lopez Age: 25 yrs Sex: Female : 1995 Arrival Date: 04/09/2020 Time: 17:58 Bed 16 Private MD: Diagnosis: Other chest pain Presentation: 04/09 18:07 Chief complaint: Patient states: L sided CP that began in October 2019. Pain has ss changed to a burning type of pain over the past 3 days, so patient decided to have it evaluated today. Has an appointment with a mining machinery assembler set of for next Saturday. Coronavirus screen: Client denies travel out of the [place] in the last 14 days. At this time, the client does not indicate any symptoms associated with coronavirus-19. Ebola Screen: Patient denies exposure to infectious person. Patient denies travel to an Ebola-affected area in the 21 days before illness onset. Initial Sepsis Screen: Does the patient meet any 2 criteria? HR > 90 bpm. Does the patient have a suspected source of infection? No. Patient's initial sepsis screen is negative. Risk Assessment: Do you want to hurt yourself or someone else? Patient reports no desire to harm self or others. Onset of symptoms was October 2019. 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 - Social history:: Smoking status: Patient denies any tobacco usage or history of. Screenin:52 Abuse screen: Denies threats or abuse. Nutritional screening: No deficits noted. Tuberculosis screening: No symptoms or risk factors identified. Fall Risk None identified. Assessment: 18:50 General: Appears in no apparent distress. Behavior is calm, cooperative, appropriate for age. Pain: Complains of pain in left supraclavicular area, left clavicle, anterior aspect of left upper chest and left breast Pain currently is 7 out of 10 on a pain scale. Pain began October, worse today Is intermittent, lasting a few minutes. lasting 30 minutes. Pain: Pain radiates to neck. Neuro: Level of Consciousness is awake, alert, obeys commands, Oriented to person, place, time, situation, Appropriate for age. Cardiovascular: Reports chest pain, Heart tones S1 S2 present Capillary refill < 3 seconds Patient's skin is warm and dry. Pulses are palpable in right radial artery and left radial artery Rhythm is sinus tachycardia. Respiratory: Airway is patent Respiratory effort is even, unlabored, Respiratory pattern is regular, symmetrical. Derm: Skin is intact, is healthy with good turgor. 19:10 Reassessment: PT is resting comfortably in bed using her cell phone. No s/s of distress jb4 or pain noted. respirations are even and unlabored. 19:58 General: Appears in no apparent distress. Behavior is calm, cooperative, appropriate wh for age. Pain: Complains of pain in anterior aspect of left upper chest Pain radiates to neck Pain currently is 3 out of 10 on a pain scale. Pain began Febuary Is intermittent, lasting a few minutes. Neuro: Level of Consciousness is awake, alert, obeys commands, Oriented to person, place, time, situation, Appropriate for age. Cardiovascular: Reports chest pain, Heart tones S1 S2 Rhythm is sinus tachycardia. Respiratory: Airway is patent Respiratory effort is even, unlabored, Respiratory pattern is regular, symmetrical, Breath sounds are clear bilaterally. GI: Abdomen is flat, non-distended. : No signs and/or symptoms were reported regarding the genitourinary system. EENT: No signs and/or symptoms were reported regarding the EENT system. Derm: Skin is intact, is healthy with good turgor, Skin is pink, warm \T\ dry. normal. Musculoskeletal: Circulation, motion, and sensation intact. 20:59 Reassessment: Patient appears in no apparent distress at this time. No changes from previously documented assessment. Patient and/or family updated on plan of care and expected duration. Pain level reassessed. Patient is alert, oriented x 3, equal unlabored respirations, skin warm/dry/pink. Vital Signs: 18:07 BP 107 / 81; Pulse 115; Resp 14; Temp 98.2(TE); Pulse Ox 98% on R/A; Weight 63.5 kg; ss Height 5 ft. 2 in. (157.48 cm); Pain 7/10; 20:00 BP 116 / 77; Pulse 104; Resp 18; Pulse Ox 99% on R/A; wh 20:59 BP 109 / 65; Pulse 54; Resp 18; Pulse Ox 96% on R/A; wh 18:07 Body Mass Index 25.61 (63.50 kg, 157.48 cm) ED Course: 17:58 Patient arrived in ED. mr 18:10 Triage completed. ss 18:10 Arm band placed on right wrist. ss 18:22 Dominick Yates MD is Attending Physician. kdr 18:32 Placed in gown. Bed in low position. Call light in reach. Side rails up X 1. Warm jp3 blanket given. Verbal reassurance given. Pulse ox on. NIBP on. 18:32 EKG done, by ED staff, reviewed by Dominick Yates MD. Patient maintains SpO2 saturation jp3 greater than 95% on room air. 19:04 Jona Cheung, ESPERANZA is Primary Nurse. jb4 19:20 Initial lab(s) drawn, by sd, sent to lab. Inserted saline lock: 20 gauge in left jb4 antecubital area, using aseptic technique. Blood collected. 19:43 XRAY Chest (1 view) In Process Unspecified. EDMS 19:46 Shivam Frias is Primary Nurse. 19:48 Attending Physician role handed off by Dominick Yates MD tw4 19:48 Cristian Arciniega MD is Attending Physician. tw4 21:00 No provider procedures requiring assistance completed. IV discontinued, intact, wh bleeding controlled, No redness/swelling at site. Administered Medications: 19:20 Drug: NS 0.9% 1000 ml Route: IV; Rate: 1 bolus; Site: left antecubital; jb4 20:48 Follow up: Response: No adverse reaction; IV Status: Completed infusion 20:47 Drug: TORadol 30 mg Route: IVP; Site: left antecubital; 21:01 Follow up: Response: No adverse reaction Outcome: 20:35 Discharge ordered by . tw4 21:00 Discharged to home ambulatory. 21:00 Condition: stable 21:00 Discharge instructions given to patient, Instructed on discharge instructions, follow up and referral plans. POC Demonstrated understanding of instructions, follow-up care, POC 21:01 Patient left the ED. Signatures: Dispatcher [employer] EDHI Dominick Yates MD MD kdr Rivera, Mary mr Tonyzeb, Aline, RN RN ss Jona Cheung RN RN jb4 Shivam Frias Terrence, MD MD tw4 Anirudh Ewing 3 Maira Vargas, RN RN
--- NOTE | 2020-04-09 20:37 | EDPHYS ---
Physician Documentation [facility] Name: Eden Lopez Age: 25 yrs Sex: Female : 1995 Arrival Date: 04/09/2020 Time: 17:58 Bed 16 Private MD: ED Physician Cristian Arciniega HPI: 04/09 18:45 This 25 yrs old Female presents to ER via Ambulatory with complaints of Chest kdr Pain. 18:45 The patient or guardian reports chest pain that is located primarily in the anterior kdr chest wall, left. The pain radiates to the left shoulder, left neck, the left scapula. Associated signs and symptoms: Pertinent positives: dizziness, lightheadedness, nausea, Pertinent negatives: diaphoresis, shortness of breath. The chest pain is described as aching, burning, dull, a pressure. Duration: The patient or guardian reports multiple episodes, that are intermittent, that wax and wane, with no pattern. Modifying factors: The symptoms are alleviated by nothing. the symptoms are aggravated by nothing. Severity of pain: At its worst the pain was mild moderate just prior to arrival, in the emergency department the pain is unchanged. The patient has experienced similar episodes in the past, multiple times, chronically, Began in October . Was seen by Dr. Hernandez but with limited evaluation - reports that she was told that everything was cine - unclear what was done. 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 - Social history:: Smoking status: Patient denies any tobacco usage or history of. ROS: 18:45 Constitutional: Negative for fever, chills, and weight loss, Eyes: Negative for injury, kdr pain, redness, and discharge, ENT: Negative for injury, pain, and discharge, Neck: Negative for injury, pain, and swelling, Respiratory: Negative for shortness of breath, cough, wheezing, and pleuritic chest pain, Abdomen/GI: Negative for abdominal pain, nausea, vomiting, diarrhea, and constipation, Back: Negative for injury and pain, : Negative for injury, bleeding, discharge, and swelling, MS/Extremity: Negative for injury and deformity, Skin: Negative for injury, rash, and discoloration, Psych: Negative for depression, anxiety, suicide ideation, homicidal ideation, and hallucinations, Allergy/Immunology: Negative for hives, rash, and allergies, Endocrine: Negative for neck swelling, polydipsia, polyuria, polyphagia, and marked weight changes, Hematologic/Lymphatic: Negative for swollen nodes, abnormal bleeding, and unusual bruising. 18:45 Cardiovascular: Positive for chest pain, palpitations, Negative for edema, orthopnea, acute changes. 18:45 Neuro: Positive for dizziness, Negative for altered mental status, gait disturbance, headache, hearing loss, loss of consciousness, numbness, seizure activity, speech changes, syncope, near syncope, tinnitus, tremor, visual changes, weakness. Exam: 18:45 Constitutional: This is a well developed, well nourished patient who is awake, alert, kdr and in no acute distress. Head/Face: Normocephalic, atraumatic. Eyes: Pupils equal round and reactive to light, extra-ocular motions intact. Lids and lashes normal. Conjunctiva and sclera are non-icteric and not injected. Cornea within normal limits. Periorbital areas with no swelling, redness, or edema. Neck: Trachea midline, no thyromegaly or masses palpated, and no cervical lymphadenopathy. Supple, full range of motion without nuchal rigidity, or vertebral point tenderness. No Meningismus. Chest/axilla: Normal chest wall appearance and motion. Nontender with no deformity. No lesions are appreciated. Respiratory: Lungs have equal breath sounds bilaterally, clear to auscultation and percussion. No rales, rhonchi or wheezes noted. No increased work of breathing, no retractions or nasal flaring. Abdomen/GI: Soft, non-tender, with normal bowel sounds. No distension or tympany. No guarding or rebound. No evidence of tenderness throughout. Back: No spinal tenderness. No costovertebral tenderness. Full range of motion. Skin: Warm, dry with normal turgor. Normal color with no rashes, no lesions, and no evidence of cellulitis. MS/ Extremity: Pulses equal, no cyanosis. Neurovascular intact. Full, normal range of motion. Neuro: Awake and alert, GCS 15, oriented to person, place, time, and situation. Cranial nerves II-XII grossly intact. Motor strength 5/5 in all extremities. Sensory grossly intact. Cerebellar exam normal. Normal gait. Psych: Awake, alert, with orientation to person, place and time. Behavior, mood, and affect are within normal limits. 18:45 Cardiovascular: Rate: tachycardic, Rhythm: regular, Pulses: no pulse deficits are appreciated, Heart sounds: normal, Edema: is not appreciated, JVD: is not appreciated, With minimal movement and talking, HR goes from 110 - 125. She does not appear to be acutely ill or effected by her HR. Vital Signs: 18:07 BP 107 / 81; Pulse 115; Resp 14; Temp 98.2(TE); Pulse Ox 98% on R/A; Weight 63.5 kg; ss Height 5 ft. 2 in. (157.48 cm); Pain 7/10; 20:00 BP 116 / 77; Pulse 104; Resp 18; Pulse Ox 99% on R/A; wh 20:59 BP 109 / 65; Pulse 54; Resp 18; Pulse Ox 96% on R/A; wh 18:07 Body Mass Index 25.61 (63.50 kg, 157.48 cm) ss MDM: 20:10 Patient medically screened. tw4 20:32 Differential diagnosis: chest wall pain, costochondritis, esophagitis, pulmonary tw4 embolus, stable angina. Data reviewed: vital signs, nurses notes. Data reviewed: lab test result(s), cardiac enzymes, electrolytes. Data interpreted: Pulse oximetry: Interpretation: normal. Counseling: I had a detailed discussion with the patient and/or guardian regarding: the historical points, exam findings, and any diagnostic results supporting the discharge/admit diagnosis. 04/09 18:40 Order name: Basic Metabolic Panel; Complete Time: 20:33 kdr 04/09 20:34 Interpretation: Within normal limits. tw4 04/09 18:40 Order name: CBC with Diff; Complete Time: 20:33 kdr 04/09 20:33 Interpretation: Normal except: RBC 5.17; HGB 15.3. tw4 04/09 18:40 Order name: LFT's; Complete Time: 20:33 kdr 04/09 20:34 Interpretation: Normal except: TP 8.3; GLOB 3.8. tw4 04/09 18:40 Order name: Magnesium; Complete Time: 20:33 kdr 04/09 20:34 Interpretation: Within normal limits: MG 2.0. tw4 04/09 18:40 Order name: NT PRO-BNP; Complete Time: 20:33 kdr 04/09 20:34 Interpretation: Within normal limits: NT PRO-BNP 25. tw4 04/09 18:40 Order name: PT-INR; Complete Time: 20:33 kdr 04/09 20:34 Interpretation: Normal except: PT 12.6. 4 04/09 18:40 Order name: Troponin (emerg Dept Use Only); Complete Time: 20:33 kdr 04/09 20:34 Interpretation: Within normal limits: TROPED < 0.02. tw4 04/09 18:40 Order name: XRAY Chest (1 view); Complete Time: 20:33 kdr 04/09 18:58 Order name: D-Dimer; Complete Time: 19:48 EDMS 04/09 19:06 Order name: UDS; Complete Time: 20:33 kdr 04/09 19:55 Order name: Urine Dipstick--Ancillary (enter results); Complete Time: 20:11 tt3 04/09 20:11 Interpretation: Normal except: UBLD TRACE; UKET 2+. 4 04/09 18:40 Order name: EKG; Complete Time: 18:41 kdr 04/09 18:40 Order name: Cardiac monitoring; Complete Time: 19:11 kdr 04/09 18:40 Order name: EKG - Nurse/Tech; Complete Time: 19:11 kdr 04/09 18:40 Order name: IV Saline Lock; Complete Time: 19:28 kdr 04/09 18:40 Order name: Labs collected and sent; Complete Time: 19:28 kdr 04/09 18:40 Order name: O2 Per Protocol; Complete Time: 19:11 kdr 04/09 18:40 Order name: O2 Sat Monitoring; Complete Time: 19:11 kdr Administered Medications: 19:20 Drug: NS 0.9% 1000 ml Route: IV; Rate: 1 bolus; Site: left antecubital; jb4 20:48 Follow up: Response: No adverse reaction; IV Status: Completed infusion 20:47 Drug: TORadol 30 mg Route: IVP; Site: left antecubital; 21:01 Follow up: Response: No adverse reaction Disposition: 04/09/20 20:35 Discharged to Home. Impression: Other chest pain. - Condition is Stable. - Discharge Instructions: Nonspecific Chest Pain. - Medication Reconciliation Form, Thank You Letter, Antibiotic Education, Prescription Opioid Use form. - Follow up: Private Physician; When: Upon discharge from the Emergency Department; Reason: Recheck today's complaints, Continuance of care, Re-evaluation by your physician. - Problem is new. - Symptoms have improved. Signatures: Dispatcher [employer] [facility] Dominick Yates MD MD [facility] Aline Michelle RN RN Jona Cheung RN RN jb4 Shivam Frias Cristian Arciniega MD MD tw4 Corrections: (The following items were deleted from the chart) 18:58 18:45 D-DIMER+COAG.LAB.BRZ ordered. [facility] 21:01 20:35 04/09/2020 20:35 Discharged to Home. Impression: Other chest pain. Condition is wh Stable. Forms are Medication Reconciliation Form, Thank You Letter, Antibiotic Education, Prescription Opioid Use. Follow up: Private Physician; When: Upon discharge from the Emergency Department; Reason: Recheck today's complaints, Continuance of care, Re-evaluation by your physician. Problem is new. Symptoms have improved. tw4
[2020-04-09] MEDS ORDERED: KETOROLAC 30 MG/ML INJ ONE (20:53)
[2020-04-09 21:06] VITALS: TEMP 98.2
[2020-04-09 21:12] VITALS: BP 109/65; O2SAT 96
== END 2020-04-09 21:01 | disposition home or self-care (01) ==
LOC: ER 17:56
DX: R07.89 Other chest pain (principal); Z88.8 Allergy status to other drugs, medicaments and biological substances
CPT/HCPCS: 96361; 93005; 85025; 80048; 36415; 83735; 85610; 85379; 80076; 80307 ×8; 81003; 84484; 83880; 71045; 96374; 99285; J7030

== ENCOUNTER 2020-05-15 00:36 | Emergency (ER) | payer OTHER ==
--- OUTSIDE RECORDS SUMMARY | 2020-05-15 00:38 | XMS REPORT ---
:1995 Author Organization e[employer] Care Team Providers Name Role Phone [facility] Provider Role Unavailable Allergies, Adverse Reactions, Alerts Substance Reaction Event Type Macrobid Rash Drug Allergy Problems Problem Type Condition Code Onset Dates Condition Statu s Assessment Otalgia of both ears H92.03 Active Problem Panic disorder [episodic paroxysmal F41.0 Active anxiety] Problem Generalized anxiety disorder F41.1 Active Problem Mixed hyperlipidemia E78.2 Active Assessment Acute swimmer's ear of both sides H60.333 Active Problem GERD without esophagitis K21.9 Act gwendolyn Problem Dysphagia, unspecified type R13.10 Active Medications Medication Code Code Instructions Start End Status Dosage System Date Date Vistaril [facility] 82274111091 25 MG Orally Active 1 caps ule every 8 hrs PRN as neede d ANXIETY Ferrous [facility] [address]-93 Active not define d Sulfate Vitamin B12 [facility] 326[address]-82334 Active not defi lobito Omeprazole [facility] 22286205530 40 MG Active TAKE 1 CAPSULE BY MOUTH 30 MINUTES BEFORE MORNING MEAL ONCE A DAY Neomycin-Polym [facility] [id number] May 12, Active 4 drops yxin-HC Otic Three 2020 into times a day affected ear Results No Known Results Summary Purpose [employer]Clinical[employer] Submission
--- OUTSIDE RECORDS SUMMARY | 2020-05-15 00:38 | XMS REPORT ---
:1995 Author Organization [employer] Care Team Providers Name Role Phone David [facility] Provider Role Unavailable Allergies No Known Allergies Problems Problem Type Condition Code Onset Dates Condition Statu s Problem Panic disorder [episodic paroxysmal F41.0 Active anxiety] Problem Generalized anxiety disorder F41.1 Active Problem Mixed hyperlipidemia E78.2 Active Problem GERD without esophagitis K21.9 Act gwendolyn Problem Dysphagia, unspecified type R13.10 Active Medications No Known Medications Results No Known Results Summary Purpose [employer]ClinicalWorks Submission
--- OUTSIDE RECORDS SUMMARY | 2020-05-15 00:38 | XMS REPORT | Continuity of Care Document ---
:1995 Author Organization [facility] t Address [address] [place] [address] Care Team Providers Name Role Phone Unavailable Unavailable Unavailable Payers Payer Name Policy Type Policy Number Effective Date Expiration Date S ource Problems Condition Condition Condition Status Onset Resolution Last Treating Co mments Source Name Details Category Date Date Treatment Clinician Date Pre-eclamp Pre-eclamp Problem Active [facility] nano nano 1-22 da 00:00: Medical Group Oligohydra Oligohydra Problem Active [facility] [...] Group Insomnia Insomnia Problem Active [facility] 2-07 da 00:00: Medical 00 Group Migraine Migraine Problem Active [facility] 2 da 00:00: [facility] 00 Group Dysphagia, Dysphagia, Problem Active [facility] unspecifie unspecifie Thuy kes - d type d type [facility] ent Clinics GERD GERD Problem Active [facility] without without [facility] - esophagiti esophagiti Me [facility]ia [facility] Panic Panic Problem Active [facility] disorder disorder [facility] - [episodic [episodic Avtar cherelle paroxysmal paroxysmal l anxiety] anxiety] Outpat i ent Clinics Generalize Generalize Problem Active [facility] d anxiety d anxiety Luke s - disorder disorder [facility] Mixed Mixed Problem Active [facility] hyperlipid hyperlipid Tuhy kes - emia emia [facility] Otalgia of Otalgia of Diagnosis Active [facility] both ears both ears Luke s - [facility] Acute Acute Diagnosis Active [facility] swimmer's swimmer's Luke s - ear of ear of Memoria both sides both sides l [facility] Allergies, Adverse Reactions, Alerts Allergy Allergy Status Severity Reaction(s) Onset Inactive Treating Comm ents Source Name Type Date Date Clinician nitrofur DA Active [facility] [place] Macrobid Adverse Active Rash [facility] Reaction [facility] House Allergy Active [facility] Nitrofur Allergy Active [facility] TREE AND Allergy Active [facility] SHRUB to da POLLEN [facility] Social History Smoking Status Start Date Stop Date Source Never Smoker [facility] Medications Ordered Filled Start Stop Current Ordering Indication Dosage Frequency Signature Comments Components Source Medication Medication Date Date Medication? Clinician (SIG) Name Name Neomycin-Po Neomycin-Po Yes Tadeo [address] [address] lymyxin-HC lymyxin-HC 9-03 Hernandez into Thuy kes - 00:00: affected Memoria 00 ear l Outpati ent Clinics Vistaril Vistaril Yes Tadeo [address] [facility] 7-08 Hernandez as needed [facility] - 00:00: [facility]oria 00 l Outpati ent Clinics Vitamin B12 Vitamin B12 [...] Clinics A DAY Zithromax Zithromax No [facility] Z-Edin 250 Z-Edin 250 Z-Edin 250 da [...] Source BP Diastolic 2018-11-03 00:00:00 70 [facility]Hg[facility] Height 2018-11-03 00:00:00 62 [in_i] [facility] BMI (Body Mass 2018-11-03 00:00:00 23 kg/m2 [facility] BP Systolic 2018-11-03 00:00:00 105 mm[facility]Hg] [facility] Body Weight 2018-11-03 00:00:00 126 [lb_av] [facility] BP Diastolic 2018-10-30 00:00:00 72 mm[facility]Hg] [facility] Height 2018-10-30 00:00:00 62 [in_i] [facility] BMI (Body Mass 2018-10-30 00:00:00 23 kg/m2 [facility]) Group BP Systolic 2018-10-30 00:00:00 102 mm[Hg] [facility] Body Weight 2018-10-30 00:00:00 2009 [oz_av] [facility] BP Diastolic 2018-10-20 00:00:00 60 mm[Hg] [facility] Height 2018-10-20 00:00:00 62 [in_i] [facility] BMI (Body Mass 2018-10-20 00:00:00 23.6 kg/m2 [facility]) Group BP Systolic 2018-10-20 00:00:00 120 mm[Hg] [facility] Body Weight 2018-10-20 00:00:00 129 [lb_av] [facility] BP Diastolic 2018-09-25 00:00:00 65 mm[Hg] [facility] Height 2018-09-25 00:00:00 62 [in_i] [facility] BMI (Body Mass 2018-09-25 00:00:00 23.6 kg/m2 [facility] BP Systolic 2018-09-25 00:00:00 120 mm[Hg] [facility] Body Weight 2018-09-25 00:00:00 129 [lb_av] [facility] BP Diastolic 2018-09-22 00:00:00 70 mm[Hg] [facility] Height 2018-09-22 00:00:00 62 [in_i] [facility] BMI (Body Mass 2018-09-22 00:00:00 23.7 kg/m2 [facility]) Group BP Systolic 2018-09-22 00:00:00 108 mm[Hg] [facility] Body Weight 2018-09-22 00:00:00 2069 [oz_av] [facility] Procedures Procedure Date / Time Performing Clinician Source Performed NM, hepatobiliary scan, 2018-10-21 00:00:00 [facility] CT, abdomen, w/wo 2018-10-01 00:00:00 [facility] unlisted imaging order 2018-09-25 00:00:00 [facility] Caesarean Section 2017-10-07 00:00:00 [facility] Plan of Care Planned Activity Planned Date Details Comments Source Instructions [facility] Encounters Start End Encounter Admission Attending Care Care Encounter Source Date/Time Date/Time Type Type Clinicians Facility Department ID 2020-05-12 2020-05-12 [facility] [id number] [facility] 13:00:00 13:00:00 [employer] [facility] l Medicine Outpati ent Clinics 2020-05-11 2020-05-11 [facility] [id number] [address] 11:46:00 11:46:00 [employer] [facility] Medicine l Medicine Outpati ent Clinics 2020-04-06 2020-04-06 [facility] [id number] 15:15:00 15:15:00 [employer] [facility] Medicine l Medicine Outpati ent Clinics 2020-03-16 2020-03-16 [facility] [id number] 11:15:00 11:15:00 t [employer] [facility] Medicine l Medicine Outpati ent Clinics 2020-01-08 2020-01-08 [facility] [id number] 14:46:00 14:46:00 [employer] [facility] Medicine l Medicine Outpati ent Clinics 2019-12-28 2019-12-28 [facility] [id number] 15:15:00 15:15:00 t [employer] [facility] Medicine l Medicine Outpati ent Clinics 2019-11-27 2019-11-27 [facility] [id number] 11:00:00 11:00:00 [employer] [facility] Medicine l Medicine Outpati ent Clinics 2019-11-25 2019-11-25 [facility] [id number] 11:00:00 11:00:00 [employer] [facility] Medicine l Medicine Outpati ent Clinics 2018-11-18 2018-11-18 Emergency E [facility] [id number] [facility] 21:14:00 21:14:00 2018-11-03 2018-11-03 Hang TOBY [place] - [id number] [facility] 00:00:00 00:00:00 Ryan, DO: d a [address] [place] [address] - [address], [place] [place] [address] , Ph. [phone] 2018-10-30 2018-10-30 Truman MM [place] - [id number] [facility] 00:00:00 00:00:00 Harvey Diaz Medical MD: [address] [place] [address] [address], [place] [address] , Ph. 2018-10-25 2018-10-25 Emergency E [facility] [id number] [facility] 01:55:00 01:55:00 2018-10-20 2018-10-20 Hang TOBY [place] - [id number] [facility] 00:00:00 00:00:00 Ryan, DO: [facility] randell garcia [address] [place] [address] - [address], [place] [place] [address] , Ph. [phone] 2018-09-25 2018-09-25 Hang TOBY [place] - [id number] [facility] 00:00:00 00:00:00 Ryan DO: [facility] randell garcia [address] [place] [address] [address], [place] [place] [address] , Ph. [phone] 2018-09-22 2018-09-22 Truman MM [place] - [id number] [facility] 00:00:00 00:00:00 Harvey Diaz MD: [address] [place] [address] [address], [place] [address] , Ph. Results Test Description Test Time Test Comments Results Result Comments Source test, urine 2018-09-23 05:27:00 Test Item Value Reference Range Interpretation Comme nts Choriogonadotropin ( test) [Presence] in Urine (tessa t code = negative neg 6-3) [facility] - [id number] 05:27:00 Test Item Value Reference Range Interpretation Comments Color of Urine by Auto (test yellow code = 00465-9) Appearance of Urine (test code clear clear = 5767-9) Glucose [Presence] in Urine by negative negative Automated test strip (test code = 76952-9) Bilirubin.total [Mass/volume] negative negative in Urine (test code = 1978-6) Ketones [Mass/volume] in Urine =2 negative H by Automated test strip (test code = 93803-3) Specific gravity of Urine by 1.034 1.003-1.030 H Automated test strip (test code = 86563-2) blood urine (test code = blood negative negative urine) pH of Urine (test code = 5.500 5-9 2756-5) protein urine (UA) (test code = trace negative protein urine (UA)) Urobilinogen [Presence] in =2.0 0.2-1.0 H Urine (test code = 69215-9) Nitrite [Presence] in Urine by negative negative Test strip (test code = 5802-4) Leukocyte esterase [Presence] =2 negative H in Urine by Automated test strip (test code = 36427-3) Erythrocytes [#/volume] in =1-5 0-5 Urine by Automated count (test code = 798-9) Leukocytes [#/area] in Urine =1-5 0-5 sediment by Automated count (test code = 12729-3) Epithelial cells [Presence] in =1-5 0-5 Urine sediment by Light microscopy (test code = 70861-1) Bacteria identified in Urine by none detected none detect Culture (test code = 630-4) Casts [#/area] in Urine =2-5 none detect sediment by Automated count (test code = 61328-6) urine culture added? (test code yes = urine culture added?) [facility] identified in Urine by [id number] 05:27:00Bacteria Ur CultJasper [facility] Hospitalantibiotic sensitivity testing, [id number] 05:27:00 Test Item Value Reference Range Interpretation [...] Minimum inhibitory concentration (HEATHER) (test code = 67062-2) Piperacillin+Tazobactam <16 [Susceptibility] by Minimum inhibitory concentration [...] <2 inhibitory concentration (HEATHER) (test code = 77146-2) Aztreonam [Susceptibility] by Minimum <8 inhibitory concentration (HEATHER) (test code = 44-8) [id number] (test code = lnn0253) <4 Meropenem [Susceptibility] by Minimum <4 inhibitory concentration (HEATHER) (test code = 6652-2) [facility], [id number] 05:27:00 Test Item Value Reference Range Interpretation Comments Choriogonadotropin ( test) negative neg [Presence] in Urine (test code = 2106-3) [facility] Hospital[facility]ysis complete panel - [id number] 05:27:00 Test Item Value Reference Range Interpretation Comments Color of Urine by Auto (test yellow code = 35986-2) Appearance of Urine (test code clear clear = 5767-9) Glucose [Presence] in Urine by negative negative Automated test strip (test code = 92131-3) Bilirubin.total [Mass/volume] negative negative in Urine (test code = 1978-6) Ketones [Mass/volume] in Urine =2 negative H by Automated test strip (test code = 22904-8) Specific gravity of Urine by 1.034 1.003-1.030 H Automated test strip (test code = 62051-4) blood urine (test code = blood negative negative urine) pH of Urine (test code = 5.500 5-9 2756-5) protein urine (UA) (test code = trace negative protein urine (UA)) Urobilinogen [Presence] in =2.0 0.2-1.0 H Urine (test code = 26510-6) Nitrite [Presence] in Urine by negative negative Test strip (test code = 5802-4) Leukocyte esterase [Presence] =2 negative H in Urine by Automated test strip (test code = 31853-2) Erythrocytes [#/volume] in =1-5 0-5 Urine by Automated count (test code = 798-9) Leukocytes [#/area] in Urine =1-5 0-5 sediment by Automated count (test code = 55157-3) Epithelial cells [Presence] in =1-5 0-5 Urine sediment by Light microscopy (test code = 04694-8) Bacteria identified in Urine by none detected none detect Culture (test code = 630-4) Casts [#/area] in Urine =2-5 none detect sediment by Automated count (test code = 67501-9) urine culture added? (test code yes = urine culture added?) [facility] identified in Urine by [id number] 05:27:00Bacteria Ur CultJasper [facility] Hospitalantibiotic sensitivity testing, [id number] 05:27:00 Test Item Value Reference Range Interpretation [...] Minimum inhibitory concentration (HEATHER) (test code = 11071-6) Piperacillin+Tazobactam <16 [Susceptibility] by Minimum inhibitory concentration [...] <2 inhibitory concentration (HEATHER) (test code = 46472-9) Aztreonam [Susceptibility] by Minimum <8 inhibitory concentration (HEATHER) (test code = 44-8) [id number] (test code = bnr4130) <4 Meropenem [Susceptibility] by Minimum <4 inhibitory concentration (HEATHER) (test code = 6652-2) [facility] Auto Differential panel - [id number] 04:57:00 Test Item Value Reference Range Interpretation Comments white blood count (test code = 7.6 K/uL 4.0-11.5 white blood count) red blood count (test code = red 4.88 M/uL 3.80-5.20 blood count) Hemoglobin [Mass/volume] in Blood 11.5 g/dL 10.5-15.7 (test code = 718-7) hematocrit (test code = hematocrit) 38.1 % 34.0-50.0 Erythrocyte mean corpuscular volume 78.2 fL 78-98 [Entitic volume] (test code = 70211-1) Erythrocyte mean corpuscular 23.7 pg 26.2-33.4 L hemoglobin [Entitic mass] (test code = 01324-3) mean corpuscular HGB conc (test 30.3 g/dL 31.5-36.2 L code = mean corpuscular HGB conc) red cell distribution width (test 18.7 % 11.5-15.5 H code = red cell distribution width) Platelets [#/volume] in Blood (test 206 K/uL 137-338 code = 50152-3) Platelet mean volume [Entitic 7.7 fL 8.4-11.8 L volume] in Blood (test code = 36169-8) Neutrophils.band form/100 64.3 % 44.4-80.1 leukocytes in Blood (test code = 40490-8) Lymphocytes/100 leukocytes in Body 23.2 % 10.0-50.0 fluid (test code = 40693-5) Monocytes/100 leukocytes in Blood 8.2 % 3.6-12.04 by Automated count (test code = 5905-5) Eosinophils/100 leukocytes in Blood 3.3 % 0.0-5.41 by Automated count (test code = 713-8) Basophils/100 leukocytes in Blood 1.0 % 0.0-0.79 H by Automated count (test code = 706-2) [facility] panel, [id number] 04:57:00 NeutrophilsBandLymphocyteAtypical LymphMonocyteEosinophilBasophilPlatelet EstimatePlatelet MorphologyAnisocytosisToxic GranulationSmudge CellsGiant PlateletsJasper General HospitalCB W Auto Differential panel - [id number] 04:57:00 Test Item Value Reference Range Interpretation Comments white blood count (test code = 7.6 K/uL 4.0-11.5 white blood count) red blood count (test code = red 4.88 M/uL 3.80-5.20 blood count) Hemoglobin [Mass/volume] in Blood 11.5 g/dL 10.5-15.7 (test code = 718-7) hematocrit (test code = hematocrit) 38.1 % 34.0-50.0 Erythrocyte mean corpuscular volume 78.2 fL 78-98 [Entitic volume] (test code = 10867-3) Erythrocyte mean corpuscular 23.7 pg 26.2-33.4 L hemoglobin [Entitic mass] (test code = 48819-0) mean corpuscular HGB conc (test 30.3 g/dL 31.5-36.2 L code = mean corpuscular HGB conc) red cell distribution width (test 18.7 % 11.5-15.5 H code = red cell distribution width) Platelets [#/volume] in Blood (test 206 K/uL 137-338 code = 41256-8) Platelet mean volume [Entitic 7.7 fL 8.4-11.8 L volume] in Blood (test code = 68803-8) Neutrophils.band form/100 64.3 % 44.4-80.1 leukocytes in Blood (test code = 15022-8) Lymphocytes/100 leukocytes in Body 23.2 % 10.0-50.0 fluid (test code = 31039-4) Monocytes/100 leukocytes in Blood 8.2 % 3.6-12.04 by Automated count (test code = 5905-5) Eosinophils/100 leukocytes in Blood 3.3 % 0.0-5.41 by Automated count (test code = 713-8) Basophils/100 leukocytes in Blood 1.0 % 0.0-0.79 H by Automated count (test code = 706-2) [facility] Hospitaldifferential panel, [id number] 04:57:00 NeutrophilsBandLymphocyteAtypical LymphMonocyteEosinophilBasophilPlatelet EstimatePlatelet MorphologyAnisocytosisToxic GranulationSmudge CellsGiant PlateletsMatagorda [facility] THIRD [id number] 08:19:00 RUN DATE: 08/13/18 [facility] PAGE 1 RUN TIME: 1340 Specimen Inquiry RUN USER: INTERFACE PATIENT: LUZ GALLEGOS LOC: JULIO CUC U #: [id number] AGE/SX: 23/F ROOM: Count Includes [facility] RE08/09/18REG DR: Honey Maria MD : 93 BED: A DIS: 08/12/18 STATUS: DIS IN TLOC: SPEC #: [id number] RECD: 08/09/18 STATUS: NHI FERNANDEZ #: [id number] JOHNATHAN: 08/09/18- SUBM DR: Honey Maria MD ENTERED: 08/11/18 SP TYPE: PLACIII OTHR DR: ORDERED: LEVEL V SURGICA/3 CODES: [id number] - FALLOPIAN TUBE [id number] - PLACENTA, NOS PROCEDURES: LEVEL V SURGICA (Incomplete) TISSUES: PLACENTA, NOS - PLACENTA FALLOPIAN TUBE, NOS - BILATERAL FALLOPIAN TUBES CLINICAL HISTORY 23 year old, 37.3 weeks, [id number], section, IUGR (kr) FINAL DIAGNOSIS Right fallopian tube, sterilization salpingectomy: - unremarkable fallopian tube with complete transection Left fallopian tube, sterilization salpingectomy: - unremarkable fallopian tube with complete transection Placenta, 37.3 weeks gestational age, section: - third trimester placenta, 439 gm (30th percentile) withpatchy villous edema - trivascular umbilical cord and membranes free of inflammation Tissue code 1 CPT code(s): 03534 x2, 57181 [facility]/ilr GROSS DESCRIPTION ANATOMIC SOURCE OF TISSUE (per [...] Specimen Inquiry RUN USER: INTERFACE SPEC #: [id number] PATIENT: VAUGHN GALLEGOS #[id number] (Continued) GROSS DESCRIPTION (Continued) fallopian tube withno fimbria aggregating to 7 x 0.3 x 0.2 cm. Three client account representative cross-sections are submitted in B. Specimen #3 [...] edema. No villitis or decidual vasculopathy identified. lsh/ksr Signed Jessica Gould MD 08/13/18 0819 END OF REPORT
--- OUTSIDE RECORDS SUMMARY | 2020-05-15 00:38 | XMS REPORT ---
[...] End Status Dosage System Date Date Omeprazole [facility] 24431509415 40 MG Orally Inactive 1 c apsule Once a day 30 minutes before morning meal Ferrous [facility] [address]-76 Active not Sulfate defined Vistaril [facility] 54978561034 25 MG Orally Active 1 caps ule every 8 hrs PRN as neede d ANXIETY Omeprazole [facility] 50777065031 40 MG Active TAKE 1 CAPSULE BY MOUTH 30 MINUTES BEFORE MORNING MEAL ONCE A DAY Vitamin B12 [facility] [address] Active not defined Results No Known Results Summary Purpose eClinicalWorks Submission
--- OUTSIDE RECORDS SUMMARY | 2020-05-15 00:38 | XMS REPORT ---
[...] Status Dosage System Date Date Vitamin B12 [facility] [address] Active not defined Ferrous [facility] [address]-95 Active not Sulfate defined Vistaril [facility] 31819045722 25 MG Orally March 16, Active 1 cap elias every 8 hrs PRN 2019 as neede d ANXIETY Omeprazole [facility] 33928365459 40 MG Orally Active 1 ca psule Once a day 30 minutes before morning meal Omeprazole [facility] 36758805892 40 MG Active TAKE 1 CAPSULE BY MOUTH 30 MINUTES BEFORE MORNING MEAL ONCE A DAY Results No Known Results Summary Purpose eClinicalWorks Submission
[2020-05-15 01:35] LABS: Urine Blood TRACE (NEG); Urine Glucose NEGATIVE (NEG); Urine Protein NEGATIVE (NEG); Urine Specific Gravity 1.015 (1.005-1.030)
--- NOTE | 2020-05-15 01:48 | ER ---
Nurse's Notes [facility] Name: Eden Lopez Age: 25 yrs Sex: Female : 1995 Arrival Date: 05/15/2020 Time: 00:40 Bed 14 Private MD: Tadeo Hernandez Diagnosis: Abdominal tenderness Presentation: 05/15 01:04 Chief complaint: Patient states: "I started having right sided flank pain yesterday but vc today it is severe, it hurts worse when I move or go to the bathroom, I started jump roping yesterday so I'm not sure if that did it or something else is going on.". Coronavirus screen: Client denies travel out of the [place] in the last 14 days. At this time, the client does not indicate any symptoms associated with coronavirus-19. Ebola Screen: No symptoms or risks identified at this time. Initial Sepsis Screen: Does the patient meet any 2 criteria? HR > 90 bpm. No. Patient's initial sepsis screen is negative. Does the patient have a suspected source of infection? No. Patient's initial sepsis screen is negative. Risk Assessment: Do you want to hurt yourself or someone else? Patient reports no desire to harm self or others. Onset of symptoms was May 13, 2020. 01:04 Method Of Arrival: Ambulatory vc 01:04 Acuity: ELBERT 3 vc Triage Assessment: 01:25 General: Appears in no apparent distress. Behavior is calm, cooperative, appropriate vc for age. Pain: Complains of pain in right upper quadrant Pain radiates to right mid back Pain currently is 5 out of 10 on a pain scale. at worst was 10 out of 10 on a pain scale. Quality of pain is described as sharp, stabbing, Pain began gradually, Is continuous, Aggravated by exercise, increased activity, repositioning. 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 - Social history:: Smoking status: Patient denies any tobacco usage or history of. Screenin:24 Abuse screen: Denies threats or abuse. Nutritional screening: No deficits noted. vc Tuberculosis screening: No symptoms or risk factors identified. Fall Risk None identified. Assessment: 01:27 General: Appears in no apparent distress. uncomfortable, Behavior is calm, cooperative, vc appropriate for age. Pain: Complains of pain in right upper quadrant Pain radiates to right mid back Pain currently is 5 out of 10 on a pain scale. at worst was 10 out of 10 on a pain scale. Pain began gradually. Neuro: Level of Consciousness is awake, alert, obeys commands, Oriented to person, place, time, situation, Appropriate for age. Cardiovascular: Capillary refill < 3 seconds Patient's skin is warm and dry. Respiratory: Airway is patent Respiratory effort is even, unlabored, Respiratory pattern is regular, symmetrical. GI: No signs and/or symptoms were reported involving the gastrointestinal system. : Reports pain flank(s), upper quadrant(s). EENT: No signs and/or symptoms were reported regarding the EENT system. Derm: No signs and/or symptoms reported regarding the dermatologic system. Musculoskeletal: No signs and/or symptoms reported regarding the musculoskeletal system. 02:30 Reassessment: Patient appears in no apparent distress at this time. Patient and/or vc family updated on plan of care and expected duration. Pain level reassessed. Patient is alert, oriented x 3, equal unlabored respirations, skin warm/dry/pink. Patient states feeling better. Patient states symptoms have improved. Vital Signs: 01:04 BP 105 / 78; Pulse 101; Resp 15; Temp 98.2; Pulse Ox 100% on R/A; Weight 63.5 kg; vc Height 5 ft. 2 in. (157.48 cm); Pain 5/10; 02:30 BP 98 / 74; Pulse 94; Resp 16; Pulse Ox 100% on R/A; vc 01:04 Body Mass Index 25.61 (63.50 kg, 157.48 cm) vc ED Course: 00:40 Patient arrived in ED. am2 00:40 Tadeo Hernandez DO is Private Physician. am2 01:02 Cristian Arciniega MD is Attending Physician. tw4 01:04 Gauri Reese RN is Primary Nurse. vc 01:08 Triage completed. vc 01:26 Arm band placed on right wrist. vc 01:27 Patient has correct armband on for positive identification. Bed in low position. Call vc light in reach. Pulse ox on. NIBP on. Warm blanket given. 01:48 Tadeo Hernandez DO is Referral Physician. tw4 02:39 No provider procedures requiring assistance completed. IV discontinued, intact, vc bleeding controlled, No redness/swelling at site. Pressure dressing applied. Administered Medications: No medications were administered Outcome: 01:48 Discharge ordered by . tw4 02:39 Discharged to home ambulatory. vc 02:39 Condition: good 02:39 Discharge instructions given to patient, Instructed on discharge instructions, follow up and referral plans. Demonstrated understanding of instructions, follow-up care, medications, Prescriptions given X 1. 02:43 Patient left the ED. vc Signatures: Jasmyn Dowd am2 Cristian Arciniega MD MD tw4 Gauri Reese, RN RN vc
--- NOTE | 2020-05-15 01:48 | EDPHYS ---
Physician Documentation [facility] Name: Eden Lopez Age: 25 yrs Sex: Female : 1995 Arrival Date: 05/15/2020 Time: 00:40 Bed 14 Private MD: Iliana Hernandezh ED Physician Cristian Arciniega HPI: 05/15 06:51 This 25 yrs old Female presents to ER via Ambulatory with complaints of Flank tw4 Pain. 06:51 The patient complains of pain in the right mid back. The pain radiates to the right tw4 lower quadrant. Onset: The symptoms/episode began/occurred today. Modifying factors: The symptoms are alleviated by nothing. the symptoms are aggravated by nothing. Associated signs and symptoms: The patient has no apparent associated signs or symptoms. The patient has not experienced similar symptoms in the past. 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 - Social history:: Smoking status: Patient denies any tobacco usage or history of. ROS: 06:51 Constitutional: Negative for fever, chills, and weight loss, Eyes: Negative for injury, tw4 pain, redness, and discharge, Cardiovascular: Negative for chest pain, palpitations, and edema, Respiratory: Negative for shortness of breath, cough, wheezing, and pleuritic chest pain, Back: Negative for injury and pain, MS/Extremity: Negative for injury and deformity, Skin: Negative for injury, rash, and discoloration, Neuro: Negative for headache, weakness, numbness, tingling, and seizure. 06:51 Abdomen/GI: Positive for abdominal pain, Negative for nausea and vomiting. Exam: 06:51 Constitutional: This is a well developed, well nourished patient who is awake, alert, tw4 and in no acute distress. Head/Face: Normocephalic, atraumatic. Chest/axilla: Normal chest wall appearance and motion. Nontender with no deformity. No lesions are appreciated. Cardiovascular: Regular rate and rhythm with a normal S1 and S2. No gallops, murmurs, or rubs. Normal PMI, no JVD. No pulse deficits. Respiratory: Lungs have equal breath sounds bilaterally, clear to auscultation and percussion. No rales, rhonchi or wheezes noted. No increased work of breathing, no retractions or nasal flaring. Abdomen/GI: Soft, non-tender, with normal bowel sounds. No distension or tympany. No guarding or rebound. No evidence of tenderness throughout. Back: No spinal tenderness. No costovertebral tenderness. Full range of motion. MS/ Extremity: Pulses equal, no cyanosis. Neurovascular intact. Full, normal range of motion. Neuro: Awake and alert, GCS 15, oriented to person, place, time, and situation. Cranial nerves II-XII grossly intact. Motor strength 5/5 in all extremities. Sensory grossly intact. Cerebellar exam normal. Normal gait. Vital Signs: 01:04 BP 105 / 78; Pulse 101; Resp 15; Temp 98.2; Pulse Ox 100% on R/A; Weight 63.5 kg; vc Height 5 ft. 2 in. (157.48 cm); Pain 5/10; 02:30 BP 98 / 74; Pulse 94; Resp 16; Pulse Ox 100% on R/A; vc 01:04 Body Mass Index 25.61 (63.50 kg, 157.48 cm) vc MDM: 01:02 Patient medically screened. tw4 06:51 Differential diagnosis: nephrolithiasis, pyelonephritis, UTI. Data reviewed: vital tw4 signs, nurses notes. Data interpreted: Pulse oximetry: Interpretation: normal. Counseling: I had a detailed discussion with the patient and/or guardian regarding: the historical points, exam findings, and any diagnostic results supporting the discharge/admit diagnosis, lab results. 05/15 00:58 Order name: Basic Metabolic Panel; Complete Time: 02:31 tw4 05/15 02:31 Interpretation: Normal except: K 3.4; CO2 15; CL 109. tw4 05/15 00:58 Order name: CBC with Diff; Complete Time: 02:00 tw4 05/15 02:00 Interpretation: Within normal limits. 05/15 00:58 Order name: Hepatic Function; Complete Time: 02:31 tw4 09/06 02:32 Interpretation: Normal except: AST 13. 05/15 00:58 Order name: Lipase; Complete Time: 02:31 05/15 02:32 Interpretation: Normal except: LIP 98. 05/15 00:58 Order name: IV Saline Lock; Complete Time: 01:30 05/15 01:12 Order name: Urine Dipstick--Ancillary (enter results); Complete Time: 02:00 ar5 05/15 02:00 Interpretation: UBLD TRACE. 05/15 00:58 Order name: Labs collected and sent; Complete Time: 01:30 05/15 00:58 Order name: Urine Dipstick-Ancillary (obtain specimen); Complete Time: 01:04 05/15 00:58 Order name: Urine Test (obtain specimen); Complete Time: 01:04 Administered Medications: No medications were administered Disposition: 05/15/20 01:48 Discharged to Home. Impression: Abdominal tenderness. - Condition is Stable. - Discharge Instructions: Abdominal Pain, Adult, [id number]. - Prescriptions for Bentyl 20 mg Oral Tablet - take 1 tablet by ORAL route every 6 hours As needed; 20 tablet. - Medication Reconciliation Form, Thank You Letter, Antibiotic Education, Prescription Opioid Use form. - Follow up: Tadeo Hernandez DO; When: Upon discharge from the Emergency Department; Reason: Recheck today's complaints, Continuance of care, Re-evaluation by your physician. - Problem is new. - Symptoms have improved. Signatures: Dispatcher [employer] Cristian Lopez MD MD tw4 Gauri Reese RN RN vc Corrections: (The following items were deleted from the chart) 02:43 01:48 05/15/2020 01:48 Discharged to Home. Impression: Abdominal tenderness. Condition vc is Stable. Forms are Medication Reconciliation Form, Thank You Letter, Antibiotic Education, Prescription Opioid Use. Follow up: Tadeo Hernandez; When: Upon discharge from the Emergency Department; Reason: Recheck today's complaints, Continuance of care, Re-evaluation by your physician. Problem is new. Symptoms have improved. tw4
[2020-05-15 01:49] LABS: Absolute Lymphocytes (CBC) 2.2 K/uL (0.7-4.9); Basophils % 0.9 % (0-1.3); Hematocrit 39.8 % (36.0-45.0); Lymphocytes % 33.5 % (15.3-44.8); MPV 9.8 fL (7.6-11.3); RBC Red Blood Cell Count 4.64 M/uL (3.86-4.86)
[2020-05-15 02:22] LABS: ALT/SGPT 21 U/L (12-78); AST/SGOT 13 U/L (15-37); Albumin 4.2 g/dL (3.4-5.0); Alkaline Phosphatase 66 U/L (45-117); BUN Blood Urea Nitrogen 8 mg/dL (7-18); Bicarbonate 15 mmol/L (21-32); Bilirubin Direct < 0.1 mg/dL (0-0.2); Bilirubin Total 0.4 mg/dL (0.2-1.0); Glucose Level 97 mg/dL (74-106); Lipase 98 U/L (73-393); Potassium 3.4 mmol/L (3.5-5.1); Protein, Total 7.4 g/dL (6.4-8.2); Sodium Level 142 mmol/L (136-145)
[2020-05-16 09:26] VITALS: TEMP 98.2; O2SAT 100
[2020-05-16 09:27] VITALS: BP 98/74
== END 2020-05-15 02:43 | disposition home or self-care (01) ==
LOC: ER 00:36
DX: R10.819 Abdominal tenderness, unspecified site (principal); F41.9 Anxiety disorder, unspecified; Z88.1 Allergy status to other antibiotic agents
CPT/HCPCS: 36415; 80048; 80076; 81003; 83690; 85025; 99283

== ENCOUNTER 2022-02-07 15:29 | Emergency (ER) | payer OTHER ==
--- OUTSIDE RECORDS SUMMARY | 2022-02-07 15:33 | XMS REPORT | Continuity of Care Document ---
:1995 Author Organization Formerly [facility] t Address [address] [place] [address] Care Team Providers Name Role Phone Reji Hernandez Attending Clinician Unavailable Dafne YAN Attending Clinician Unavailable Linus Attending Clinician Unavailable 2, Lab Attending Clinician Unavailable Yuriy LEBRON L Attending Clinician Linus Admitting Clinician Unavailable Payers Payer Name Policy Type Policy Number Effective Date Expiration Date S aly [facility] [id number] 2020 00:00:00 [facility] [id number] 2018 [employer] [place] 00:00:00 (MEDICAID HMO) Problems Condition Condition Condition Status Onset Resolution Last Treating Co mments Source Name Details Category Date Date Treatment Clinician Date Pre-eclamp Pre-eclamp Problem Active 2018-0 M [place] nano nano 1-22 da 00:00: Medical 00 Group Oligohydra Oligohydra Problem Active 2018-0 [facility] [place] mnios mnios 1-22 da 00:00: Medical 00 Group Problem Active [place] growth Growth 1-22 da restrictio Restrictio 00:00: Me dical n n 00 Group Small for Small for Problem Active [place] gestationa Gestationa 1-15 da l age l Age 00:00: Medical fetus Fetus 00 Group Candidiasi Candidiasi Problem Active 2016-09 M [place] s of s of 0-05 da vagina Vagina 00:00: Medical Group Gastroesop Gastroesop Problem Active 2016-09 M [...] Group Migraine Migraine Problem Active [place] 2-07 da 00:00: Medical 00 Group No known No known Disease Unive rs active active ity of problems problems [facility] Allergies, Adverse Reactions, Alerts Allergy Allergy Status Severity Reaction(s) Onset Inactive Treating Comm ents Source Name Type Date Date Clinician NITROFUR DRUG Active Med Rash 2020-0 Univers ANTOIN 9-15 ity of MONOHYD/ 00:00: [place] [facility] 00 Medical [facility] Nitrofur Drug Active Rash 2019-0 Univers antoin Allergy 9-15 ity of Monohyd/ 00:00: [place] [facility] nitrofur DA Active U [facility] antoin 1-22 Woman[facility] 00:00: [facility] [place] Macrobid Adverse Active Rash Common Reaction [facility] - [facility] House Allergy Active [place] to da [facility] Medical e Group NO KNOWN Drug Active Univers ALLERGIE Class ity of S [facility] Nitrofur Allergy Active [place] antoin to da [facility] Medical e Group TREE AND Allergy Active [place] SHRUB to da POLLEN [facility] Medical e Group Social History Social Habit Start Date Stop Date Quantity Comments Source Exposure to Not sure [facility] SARS-CoV-2 [facility] (event) Branch Sex Assigned At Universit y of [facility] Tobacco use and 2020-05-24 2020-05-24 Never used Universit y of exposure 00:00:00 00:00:00 [facility] Alcohol intake 2020-05-24 2020-05-24 Ex-drinker [facility] 00:00:00 00:00:00 (finding) [facility] Smoking Status Start Date Stop Date Source [facility] smoker [facility] Medications Ordered Filled Start Stop Current Ordering Indication Dosage Frequency Signature Comments Components Source Medication Medication Date Date Medication? Clinician (SIG) Name Name neomycin-po 2020-0 Yes INSTILL 4 U nivers lymyxin-hyd 9-03 DROPS INTO it y of rocortisone [place] o[place] 00 EAR 3 Medical solution TIMES A Branch DAY FOR 7 DAYS neomycin-po 2020-0 Yes INSTILL 4 U nivers lymyxin-hyd 9-03 DROPS INTO it y of rocortisone [place] 00 EAR 3 Medical solution TIMES A Branch DAY FOR 7 DAYS neomycin-po 2020-0 Yes INSTILL 4 U nivers lymyxin-hyd 9-03 DROPS INTO it y of rocortisone 00:[place] 00 EAR 3 Medical solution TIMES A Branch DAY FOR 7 DAYS Neomycin-Po Neomycin-Po 2020-0 Yes Tadeo 4 drops Common lymyxin-HC lymyxin-HC 9- Hernandez into Sp jared 00:00: affected - [facility] 00 ear [facility] hydrOXYzine 2020-0 Yes TAKE 1 Univ ers 25 mg 7-24 CAPSULE BY ity of capsule 00:00: MOUTH 00 EVERY 8 Medical HOURS Branch NEEDED FOR ANXIETY hydrOXYzine 2020-0 Yes TAKE 1 Univ ers 25 mg 7-24 CAPSULE BY ity of capsule 00:00: MOUTH [place] 00 EVERY 8 Medical HOURS Branch NEEDED FOR ANXIETY hydrOXYzine 2020-0 Yes TAKE 1 Univ ers 25 mg 7-24 CAPSULE BY ity of capsule 00:00: MOUTH 00 EVERY 8 Medical HOURS Branch NEEDED FOR ANXIETY Vistaril Vistaril 2019-0 Yes Tadeo 1 capsule Common 7-08 Hernandez as needed Spirit 00:00: - [facility] 00 [facility] Vitamin B12 Vitamin B12 Yes Tade[place] not Common Hernandez defined [facility] Ferrous Ferrous Yes Tadeo not Common Sulfate Sulfate Hernandez defined Spiri t - [facility] Omeprazole Omeprazole Yes Tadeo TAKE 1 Common Hernandez CAPSULE BY Spirit MOUTH 30 - CHI MINUTES BEFORE [facility] MORNING Medical MEAL ONCE Center A DAY Zithromax Zithromax No Zithromax [place] Z-Edin 250 Z-Edin 250 Z-Edin 250 da [...] Name Observation Time Observation Value Comments Source Systolic blood 2020-05-24 19:21:00 98 mm[Hg] [facility] [place] [facility] Diastolic blood 2020-05-24 19:21:00 75 mm[Hg] [facility] Heart rate 2020-05-24 19:21:00 92 /min [facility] Body temperature 2020-05-24 19:21:00 36.72 Mya [facility] Respiratory rate 2020-05-24 19:21:00 16 /min [facility] Body height 2020-05-24 19:21:00 157.5 cm [facility] Body weight 2020-05-24 19:21:00 61.508 kg [facility] BMI 2020-05-24 19:21:00 24.80 kg/m2 [facility] BP Diastolic 2018-11-03 00:00:00 70 mm[Hg] [facility] Height 2018-11-03 00:00:00 62 [in_i] [facility] BMI (Body Mass 2018-11-03 00:00:00 23 kg/m2 [facility] Index) Group BP Systolic 2018-11-03 00:00:00 105 mm[Hg] [facility] Body Weight 2018-11-03 00:00:00 126 [lb_av] [facility] BP Diastolic 2018-10-30 00:00:00 72 mm[Hg] [facility] Height 2018-10-30 00:00:00 62 [in_i] [facility] BMI (Body Mass 2018-10-30 00:00:00 23 kg/m2 [facility] Medical Index) Group BP Systolic 2018-10-30 00:00:00 102 mm[Hg] [facility] Body Weight 2018-10-30 00:00:00 2009 [oz_av] [facility] BP Diastolic 2018-10-20 00:00:00 60 mm[Hg] [facility] Height 2018-10-20 00:00:00 62 [in_i] [facility] BMI (Body Mass 2018-10-20 00:00:00 23.6 kg/m2 [facility] Medical Index) Group BP Systolic 2018-10-20 00:00:00 120 mm[Hg] [facility] Body Weight 2018-10-20 00:00:00 129 [lb_av] [facility] BP Diastolic 2018-09-25 00:00:00 65 mm[Hg] [facility] Height 2018-09-25 00:00:00 62 [in_i] [facility] BMI (Body Mass 2018-09-25 00:00:00 23.6 kg/m2 [facility] Medical Index) Group BP Systolic 2018-09-25 00:00:00 120 mm[Hg] [facility] Body Weight 2018-09-25 00:00:00 129 [lb_av] [facility] BP Diastolic 2018-09-22 00:00:00 70 mm[Hg] [facility] Height 2018-09-22 00:00:00 62 [in_i] [facility] BMI (Body Mass 2018-09-22 00:00:00 23.7 kg/m2 [facility] Medical Index) Group BP Systolic 2018-09-22 00:00:00 108 mm[Hg] [facility] Body Weight 2018-09-22 00:00:00 2068 [oz_av] [facility] Procedures Procedure Date / Time Performing Clinician Source Performed [place], hepatobiliary scan, 2018-10-21 00:00:00 [facility] CT, abdomen, w/wo 2018-10-01 00:00:00 [place] [facility] unlisted imaging order 2018-09-25 00:00:00 [facility] Caesarean Section 2017-10-07 00:00:00 [place] [facility] Ovarian Cystectomy [place] [facility] Plan of Care Planned Activity Planned Date Details Comments Source Instructions [place] [facility] Encounters Start End Encounter Admission Attending Care Care Encounter Source Date/Time Date/Time Type Type Clinicians Facility Department ID 2021-10-04 Outpatient Hernandez, STLMLC STLMLC [id number] Common 13:53:06 [facility] [address] [facility] 2021-10-04 Outpatient Hernandez, STLMLC STLMLC [id number] Common 13:37:35 [facility] [address]758 [facility] 2021-10-04 Outpatient Hernandez, STLMLC STLMLC [id number] Common 13:37:22 Tadeo 57562 [facility] 2021-10-04 Outpatient Hernandez, STLMLC STLMLC [id number] Common 12:28:15 Tadeo 04262 [facility] 2021-10-04 Outpatient Hernandez, STLMLC STLMLC [id number] Common 12:16:02 Tadeo 75266 [facility] 2021-10-04 Outpatient Hernandez, STLMLC STLMLC [id number] Common 12:15:34 Tadeo 81495 [facility] 2021-10-04 Outpatient Hernandez, STLMLC STLMLC [id number] Common 12:01:17 Tadeo 36208 [facility] 2021-10-04 Outpatient Hernandez, STLMLC STLMLC [id number] Common 12:00:39 Tadeo 42403 [facility] 2021-10-04 Outpatient Hernandez, STLMLC STLMLC [id number] Common 11:59:52 Tadeo [address]4749 [facility] 2021-10-04 Outpatient Hernandez, STLMLC STLMLC [id number] Common 11:50:14 Tadeo 96034 [facility] 2021-10-04 Outpatient Hernandez, STLMLC STLMLC [id number] Common 11:30:29 Tadeo 70312 [facility] 2021-10-04 Outpatient Hernandez, STLMLC STLMLC [id number] Common 11:18:21 Tadeo 75444 [facility] 2021-10-04 Outpatient Hernandez, STLMLC STLMLC [id number] Common 11:14:56 Tadeo 18286 [facility] 2021-10-04 Outpatient Hernandez, STLMLC STLMLC [id number] Common 11:14:29 Tadeo 98383 [facility] 2021-09-19 2021-09-19 ambulatory STLMLC STLMLC [id number] Common 00:00:00 00:00:00 [facility] 2021-09-18 2021-09-18 ambulatory STLMLC STLMLC [id number] Common 00:00:00 00:00:00 [facility] 2021-06-02 2021-06-02 Outpatient STLMLC STLMLC [id number] Common 00:00:00 00:00:00 [facility] 2021-05-29 2021-05-29 Outpatient STLMLC STLMLC [id number] Common 00:00:00 00:00:00 [facility] 2021-05-26 2021-05-26 Outpatient R ADUM, [facility] [id number] Univers 14:45:00 14:45:00 LUZMARIA [id number] [facility] 2021-05-26 2021-05-26 Outpatient R ADUM, [facility] [id number] Univers 14:45:00 14:45:00 LUZMARIA [facility] 2021-05-25 2021-05-25 Outpatient R ADUM, [facility] [id number] Univers 15:30:00 15:30:00 LUZMARIA [id number] [facility] 2021-05-25 2021-05-25 Outpatient R YURIY [facility] [id number] Univers 15:30:00 15:30:00 LUZMARIA [facility] 2021-04-20 2021-04-20 Outpatient STLMLC STLMLC [id number] Common 00:00:00 00:00:00 [facility] 2021-03-21 2021-03-21 Outpatient STLMLC STLMLC [id number] Common 00:00:00 00:00:00 [facility] 2020-10-14 2020-10-14 Outpatient STLMLC STLMLC [id number] Common 00:00:00 00:00:00 [facility] 2020-08-31 2020-08-31 Outpatient STLMLC STLMLC [id number] Common 00:00:00 00:00:00 [facility] 2020-08-09 2020-08-09 Outpatient STLMLC STLMLC [id number] Common 00:00:00 00:00:00 [facility] 2020-07-27 2020-07-27 Outpatient Linus MMG MMG [id number] [place] 02:46:00 02:46:00 [facility]8 [facility] 2020-07-11 2020-07-11 Outpatient STLMLC STLMLC [id number] Common 00:00:00 00:00:00 [facility] 2020-06-07 2020-06-07 Outpatient STLMLC STLMLC [id number] Common 00:00:00 00:00:00 [facility] 2020-05-24 2020-05-24 Outpatient R [facility] [id number] Univers 15:30:00 15:30:00 [id number] [facility] 2020-05-24 2020-05-24 [employer] 2, Adc Lab [facility] [id number] Univers 15:11:40 15:26:40 Visit Luzmaria Yan [id number] hilda [facility] [phone] Me dical nal 353 [facility] 2020-05-24 2020-05-24 Office Adum, [facility] [id number] Univers 14:01:53 14:31:53 Visit Luzmaria Wilson [id number] [place] [id number] [phone] Me dical nal 134 [facility] 2020-05-24 2020-05-24 Outpatient R ADUM, [facility] [id number] [facility] 14:00:00 14:00:00 LUZMARIA [facility] 2020-05-12 2020-05-12 [facility] [id number] Common 13:00:00 13:00:[address] [facility] 2020-05-11 2020-05-11 Out[facility] [id number] Common 11:46:00 11:46:[address] [facility] 2020-04-06 2020-04-06 [facility] [id number] Common 15:15:00 15:15:[address] [facility] 2020-03-16 2020-03-16 [facility] [id number] Common 11:15:00 11:15:[address] [facility] 2020-01-08 2020-01-08 [facility] [id number] Common 14:46:00 14:46:[address] [facility] 2019-12-28 2019-12-28 [facility] [id number] Common 15:15:00 15:15:[address] [facility] 2019-11-27 2019-11-27 [facility] [id number] Common 11:00:00 11:00:[address] [facility] 2019-11-25 2019-11-25 Outpatient [facility] [id number] Common 11:00:00 11:00:00 [email or web address] 2018-11-18 2018-11-18 Emergency E MHFB MHFB [id number] MHFB 21:14:00 21:14:00 2018-11-03 2018-11-03 Hang LUISJuanito [place] - [id number] M [facility] 00:00:00 00:00:00 Ryan DO: Discovery randell garcia [address] [place] [address] - [address], [facility] [place] [address] , Ph. [phone] 2018-10-30 2018-10-30 Truman VELÁZQUEZ [place] - [id number] [place] 00:00:00 00:00:00 Harvey Diaz Medical MD: [address] [place] [address] [address], [place] [address] , Ph. 2018-10-25 2018-10-25 Emergency E MHFB MHFB [id number] MHFB 01:55:00 01:55:00 2018-10-20 2018-10-20 Hang VELÁZQUEZ [place] - [id number] M at[place]or 00:00:00 00:00:00 Ryan DO: Discovery randell garcia [address] [place] [address], [place] - [address], [facility] [place] [address] , Ph. [phone] 2018-09-25 2018-09-25 Hang VELÁZQUEZ [place] - [id number] M at[place]or 00:00:00 00:00:00 Ryan DO: Discovery randell garcia [address] [place] [address] [address], [facility] [place] [address] , Ph. [phone] 2018-09-22 2018-09-22 Truman VELÁZQUEZ [place] - [id number] [place] 00:00:00 00:00:00 Harvey Diaz MD: [address] [place] [address] [address], [place] [address] , Ph. Results Test Description Test Time Test Comments Results Result Comments Source test, urine 2018-09-23 05:27:00 Test Item Value Reference Range Interpretation Comme nts Choriogonadotropin ( test) [Presence] in Urine (tessa t code = negative neg 2106-3) [facility] panel - [id number] 05:27:00 Test Item Value Reference Range Interpretation Comments Color of Urine by Auto (test yellow code = 64616-7) Appearance of Urine (test code clear clear = 5767-9) Glucose [Presence] in Urine by negative negative Automated test strip (test code = 96310-0) Bilirubin.total [Mass/volume] negative negative in Urine (test code = 1978-6) Ketones [Mass/volume] in Urine =2 negative H by Automated test strip (test code = 25851-8) Specific gravity of Urine by 1.034 1.003-1.030 H Automated test strip (test code = 35998-2) blood urine (test code = blood negative negative urine) pH of Urine (test code = 5.500 5-9 2756-5) protein urine (UA) (test code = trace negative protein urine (UA)) Urobilinogen [Presence] in =2.0 0.2-1.0 H Urine (test code = 79859-2) Nitrite [Presence] in Urine by negative negative Test strip (test code = 5802-4) Leukocyte esterase [Presence] =2 negative H in Urine by Automated test strip (test code = 41609-6) Erythrocytes [#/volume] in =1-5 0-5 Urine by Automated count (test code = 798-9) Leukocytes [#/area] in Urine =1-5 0-5 sediment by Automated count (test code = 11803-9) Epithelial cells [Presence] in =1-5 0-5 Urine sediment by Light microscopy (test code = 84505-6) Bacteria identified in Urine by none detected none detect Culture (test code = 630-4) Casts [#/area] in Urine =2-5 none detect sediment by Automated count (test code = 65752-1) urine culture added? (test code yes = urine culture added?) [facility] identified in Urine by [id number] 05:27:00Bacteria Ur CultMatagorda Medical Groupantibiotic sensitivity testing, [id number] 05:27:00 Test Item Value Reference Range Interpretation [...] Cefotaxime [Susceptibility] by Minimum <2 inhibitory concentration (HETAHER) (test code = 108-1) Cefepime [Susceptibility] by Minimum <8 inhibitory concentration (HEATHER) (test code = 6644-9) Levofloxacin [Susceptibility] by <2 Minimum inhibitory concentration (HEATHER) (test code = 93342-2) Piperacillin+Tazobactam <16 [Susceptibility] by Minimum inhibitory concentration [...] <2 inhibitory concentration (HEATHER) (test code = 14437-8) Aztreonam [Susceptibility] by Minimum <8 inhibitory concentration (HEATHER) (test code = 44-8) [id number] (test code = trs3618) <4 Meropenem [Susceptibility] by Minimum <4 inhibitory concentration (HEATHER) (test code = 6652-2) [facility] test, [id number] 05:27:00 Test Item Value Reference Range Interpretation Comments Choriogonadotropin ( test) negative neg [Presence] in Urine (test code = 2106-3) [facility]adaUrinalysis complete panel - [id number] 05:27:00 Test Item Value Reference Range Interpretation Comments Color of Urine by Auto (test yellow code = 89659-7) Appearance of Urine (test code clear clear = 5767-9) Glucose [Presence] in Urine by negative negative Automated test strip (test code = 23057-5) Bilirubin.total [Mass/volume] negative negative in Urine (test code = 1978-6) Ketones [Mass/volume] in Urine =2 negative H by Automated test strip (test code = 16424-0) Specific gravity of Urine by 1.034 1.003-1.030 H Automated test strip (test code = 79884-6) blood urine (test code = blood negative negative urine) pH of Urine (test code = 5.500 5-9 2756-5) protein urine (UA) (test code = trace negative protein urine (UA)) Urobilinogen [Presence] in =2.0 0.2-1.0 H Urine (test code = 70112-3) Nitrite [Presence] in Urine by negative negative Test strip (test code = 5802-4) Leukocyte esterase [Presence] =2 negative H in Urine by Automated test strip (test code = 07805-2) Erythrocytes [#/volume] in =1-5 0-5 Urine by Automated count (test code = 798-9) Leukocytes [#/area] in Urine =1-5 0-5 sediment by Automated count (test code = 68352-0) Epithelial cells [Presence] in =1-5 0-5 Urine sediment by Light microscopy (test code = 72675-2) Bacteria identified in Urine by none detected none detect Culture (test code = 630-4) Casts [#/area] in Urine =2-5 none detect sediment by Automated count (test code = 94780-3) urine culture added? (test code yes = urine culture added?) [facility]adaBacteria identified in Urine by [id number] 05:27:00[facility]antib[facility] sensitivity testing, [id number] 05:27:00 Test Item Value Reference Range Interpretation [...] Minimum inhibitory concentration (HEATHER) (test code = 18801-0) Piperacillin+Tazobactam <16 [Susceptibility] by Minimum inhibitory concentration [...] <2 inhibitory concentration (HEATHER) (test code = 59846-0) Aztreonam [Susceptibility] by Minimum <8 inhibitory concentration (HEATHER) (test code = 44-8) [id number] (test code = glv8779) <4 Meropenem [Susceptibility] by Minimum <4 inhibitory concentration (HEATHER) (test code = 6652-2) [facility] W Auto Differential panel - [id number] 04:57:00 Test Item Value Reference Range Interpretation Comments white blood count (test code = 7.6 K/uL 4.0-11.5 white blood count) red blood count (test code = red 4.88 M/uL 3.80-5.20 blood count) Hemoglobin [Mass/volume] in Blood 11.5 g/dL 10.5-15.7 (test code = 718-7) hematocrit (test code = hematocrit) 38.1 % 34.0-50.0 Erythrocyte mean corpuscular volume 78.2 fL 78-98 [Entitic volume] (test code = 55117-8) Erythrocyte mean corpuscular 23.7 pg 26.2-33.4 L hemoglobin [Entitic mass] (test code = 69011-0) mean corpuscular HGB conc (test 30.3 g/dL 31.5-36.2 L code = mean corpuscular HGB conc) red cell distribution width (test 18.7 % 11.5-15.5 H code = red cell distribution width) Platelets [#/volume] in Blood (test 206 K/uL 137-338 code = 34529-4) Platelet mean volume [Entitic 7.7 fL 8.4-11.8 L volume] in Blood (test code = 38726-4) Neutrophils.band form/100 64.3 % 44.4-80.1 leukocytes in Blood (test code = 08258-4) Lymphocytes/100 leukocytes in Body 23.2 % 10.0-50.0 fluid (test code = 58041-7) Monocytes/100 leukocytes in Blood 8.2 % 3.6-12.04 by Automated count (test code = 5905-5) Eosinophils/100 leukocytes in Blood 3.3 % 0.0-5.41 by Automated count (test code = 713-8) Basophils/100 leukocytes in Blood 1.0 % 0.0-0.79 H by Automated count (test code = 706-2) [facility] panel, [id number] 04:57:00 NeutrophilsBandLymphocyteAtypical LymphMonocyteEosinophilBasophilPlatelet EstimatePlatelet MorphologyAnisocytosisToxic GranulationSmudge CellsGiant PlateletsMemorial Hospital at Gulfport W Auto Differential panel - [id number] 04:57:00 Test Item Value Reference Range Interpretation Comments white blood count (test code = 7.6 K/uL 4.0-11.5 white blood count) red blood count (test code = red 4.88 M/uL 3.80-5.20 blood count) Hemoglobin [Mass/volume] in Blood 11.5 g/dL 10.5-15.7 (test code = 718-7) hematocrit (test code = hematocrit) 38.1 % 34.0-50.0 Erythrocyte mean corpuscular volume 78.2 fL 78-98 [Entitic volume] (test code = 74549-8) Erythrocyte mean corpuscular 23.7 pg 26.2-33.4 L hemoglobin [Entitic mass] (test code = 71865-1) mean corpuscular HGB conc (test 30.3 g/dL 31.5-36.2 L code = mean corpuscular HGB conc) red cell distribution width (test 18.7 % 11.5-15.5 H code = red cell distribution width) Platelets [#/volume] in Blood (test 206 K/uL 137-338 code = 04962-9) Platelet mean volume [Entitic 7.7 fL 8.4-11.8 L volume] in Blood (test code = 03111-4) Neutrophils.band form/100 64.3 % 44.4-80.1 leukocytes in Blood (test code = 49166-3) Lymphocytes/100 leukocytes in Body 23.2 % 10.0-50.0 fluid (test code = 83062-3) Monocytes/100 leukocytes in Blood 8.2 % 3.6-12.04 by Automated count (test code = 5905-5) Eosinophils/100 leukocytes in Blood 3.3 % 0.0-5.41 by Automated count (test code = 713-8) Basophils/100 leukocytes in Blood 1.0 % 0.0-0.79 H by Automated count (test code = 706-2) [facility] panel, [id number] 04:57:00 NeutrophilsBandLymphocyteAtypical LymphMonocyteEosinophilBasophilPlatelet EstimatePlatelet MorphologyAnisocytosisToxic GranulationSmudge CellsGiant PlateletsMataField Memorial Community HospitalPLACENTA THIRD [id number] 08:19:00 RUN DATE: 08/13/18 [facility] PAGE 1 RUN TIME: 1340 Specimen Inquiry RUN USER: INTERFACE PATIENT: LUZ GALLEGOS LOC: OlgaKENNETHUC U #: [id number] AGE/SX: 23/F ROOM: [facility] RE08/09/18[facility] DR: Honey Maria MD : [id number] BED: A DIS: 08/12/18 STATUS: DIS IN TLOC: SPEC #: [id number] RECD: 08/09/18 STATUS: NHI FERNANDEZ #: [id number] JOHNATHAN: 08/09/18- SUBM DR: Honey Maria MD ENTERED: 08/11/18 SP TYPE: PLACIII OTHR DR: ORDERED: LEVEL V SURGICA/3 CODES: [id number] - FALLOPIAN TUBE [id number] - PLACENTA, NOS PROCEDURES: LEVEL V SURGICA (Incomplete) TISSUES: PLACENTA, NOS - PLACENTA FALLOPIAN TUBE, NOS - BILATERAL FALLOPIAN TUBES CLINICAL HISTORY 23 year old, 37.3 weeks, [id number], section, IUGR (kr) FINAL DIAGNOSIS Right fallopian tube, sterilization salpingectomy: - unremarkable fallopian tube with complete transection Left fallopian tube, sterilization salpingectomy: - unremarkable fallopian tube with complete transection Placenta, 37.3 weeks gestational age, section: - third trimester placenta, 439 gm (30th percentile) withpatchy villous edema - trivascular umbilical cord and membranes free of inflammation Tissue code 1 CPT code(s): 10323 x2, 79198 [facility] GROSS DESCRIPTION ANATOMIC SOURCE OF TISSUE (per Requisition): 1. Bilateral fallopian tubes 2. Placenta Each specimen is labeled with the patient's name and medical record number. Specimen #1 is designated "right fallopian tube" and consists of an 11 x 0.3 x 0.2 cm segment of acevedo fallopian tube with fimbria. The entire fimbria and three cross-sections of the tube are submitted in A. Specimen #2 is yadiel gnated "left fallopian tube" and consists of two segments of CONTINUED ON NEXT PAGE RUN DATE: 08/13/18 [facility] PAGE 2 RUN TIME: 1340 Specimen Inquiry RUN USER: INTERFACE SPEC #: [id number] PATIENT: VAUGHN GALLEGOS #[id number] (Continued) GROSS DESCRIPTION (Continued) fallopian tube withno fimbria aggregating to 7 x 0.3 x 0.2 cm. Three international account representative cross-sections are submitted in B. Specimen #3 is designated "placenta". The following attributes are observed: Cord inse rtion: 6 cm from margin Cord length: 44 cm Number of vessels: 3 Cord color: Blue-acevedo Other cord findings: None surface findings: Steel blue, wrinkled, glistening Vasculature: Displays unremarkable blood vasculature Membranes rupture site: 0.0 cm to margin Membrane color: Acevedo Other membrane findings: Thickened and opaque The [...]
[2022-02-07 19:19] LABS: Absolute Lymphocytes (CBC) 2.1 K/uL (0.7-4.9); Hematocrit 38.5 % (36.0-45.0); Lymphocytes % 21.6 % (15.3-44.8); MPV 8.9 fL (7.6-11.3); RBC Red Blood Cell Count 4.89 M/uL (3.86-4.86)
[2022-02-07 19:25] LABS: Albumin 3.5 g/dL (3.4-5.0); Bilirubin Total 0.2 mg/dL (0.2-1.0); Potassium 3.7 mmol/L (3.5-5.1); Protein, Total 7.3 g/dL (6.4-8.2)
[2022-02-07 19:47] LABS: Urine Blood Trace-intact (Negative); Urine Glucose Negative (Negative); Urine Protein Negative (Negative); Urine pH 7.5 (5.0-7.0)
--- NOTE | 2022-02-07 20:13 | RAD REPORT ---
EXAM DESCRIPTION: CTAbdomen Pelvis W Contrast - 02/07/2022 8:02 pm CLINICAL HISTORY: Bleeding from umbilicus COMPARISON: No comparisons TECHNIQUE: CT of the abdomen and pelvis was performed. All CT scans are performed using dose optimization technique as appropriate and may include automated exposure control or mA/KV adjustment according to patient size. FINDINGS: Lower chest: No acute abnormality. Liver: No acute abnormality or suspicious lesions. Biliary: No biliary ductal dilatation. Stomach: No significant focal abnormality. Duodenum: No significant focal abnormality. Pancreas: No significant abnormality. Spleen: No significant abnormality. Adrenal: No suspicious lesions. Kidney/ureter: No hydronephrosis. No renal calculi. Retroperitoneum: No retroperitoneal adenopathy. Vascular: No aneurysm. Bowel: No significant focal abnormality. Normal appendix. Peritoneum: No ascites or free air. Soft tissue thickening at the umbilicus. Tiny fat containing umbi lical hernia. Bladder: Grossly unremarkable. Reproductive: No adnexal masses. Bones: No acute fracture. Other: n/a IMPRESSION: Soft tissue thickening at the umbilicus which is superficial. No abscess identified. No acute intra-abdominal abnormality.
--- NOTE | 2022-02-07 20:46 | ER ---
Nurse's Notes [facility] Name: Eden Lopez Age: 26 yrs Sex: Female : 1995 Arrival Date: 02/07/2022 Time: 15:42 Bed 18 Private MD: Diagnosis: Cellulitis of abdominal wall Presentation: 02/07 16:04 Chief complaint: Patient states: Began bleeding from my belly button this morning. ld1 Denies trauma. C/O belly button pain. Coronavirus screen: At this time, the client does not indicate any symptoms associated with coronavirus-19. Ebola Screen: No symptoms or risks identified at this time. Initial Sepsis Screen: Does the patient meet any 2 criteria? No. Patient's initial sepsis screen is negative. Does the patient have a suspected source of infection? No. Patient's initial sepsis screen is negative. Risk Assessment: Do you want to hurt yourself or someone else? Patient reports no desire to harm self or others. Onset of symptoms was February 07, 2022. 16:04 Method Of Arrival: Ambulatory ld1 16:04 Acuity: ELBERT 3 ld1 Triage Assessment: 16:07 General: Appears in no apparent distress. comfortable, Behavior is calm, cooperative, ld1 appropriate for age. Pain: Complains of pain in umbilical area Pain does not radiate. Pain currently is 3 out of 10 on a pain scale. EENT: No signs and/or symptoms were reported regarding the EENT system. Neuro: Level of Consciousness is awake, alert, obeys commands, Oriented to person, place, time, situation. Cardiovascular: Capillary refill < 3 seconds Patient's skin is warm and dry. Respiratory: Airway is patent Respiratory effort is even, unlabored. GI: Abdomen is round non-distended. GI: Reports. : No signs and/or symptoms were reported regarding the genitourinary system. 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 - Social history:: Smoking status: Patient denies any tobacco usage or history of. Patient/guardian denies using alcohol. Screenin:35 Abuse screen: Denies threats or abuse. Nutritional screening: No deficits noted. tw2 Tuberculosis screening: No symptoms or risk factors identified. Fall Risk None identified. Assessment: 17:41 Reassessment: Patient appears in no apparent distress at this time. General: Appears in tw2 no apparent distress. well groomed, Behavior is calm, cooperative, appropriate for age. Pain: Complains of pain in umbilical area. GI: Patient currently denies nausea, vomiting. : Denies vaginal bleeding. 19:35 Reassessment: Patient appears in no apparent distress at this time. No changes from omar previously documented assessment. I recv'd report on the pt in room #18. The pt is lying on the bed and visiting with her at bedside. No bleeding is seen, old or new, in her umbilicus. Awaiting dispo. 19:47 Reassessment: I asked the tech to perform the dip and Hcg tests, on the urine she omar provided. 19:48 GI: Bowel sounds present X 4 quads. omar 19:48 GI: Abd is soft and non tender. omar 20:00 Reassessment: The pt was taken to CT via wc. omar Vital Signs: 16:04 BP 122 / 79; Pulse 106; Resp 18; Temp 98.7(O); Pulse Ox 99% on R/A; Weight 72.57 kg; ld1 Height 5 ft. 2 in. (157.48 cm); Pain 3/10; 17:40 BP 111 / 70; Pulse 90; Resp 17; Pulse Ox 100% on R/A; tw2 19:34 BP 114 / 63; Pulse 82; Resp 16; Temp 98.7; Pulse Ox 100% on R/A; Pain 0/10; omar 16:04 Body Mass Index 29.26 (72.57 kg, 157.48 cm) ld1 ED Course: 15:42 Patient arrived in ED. as 15:46 Dominick Yates MD is Attending Physician. kdr 16:07 Triage completed. ld1 16:07 Arm band placed on right wrist. ld1 17:16 Bed in low position. Call light in reach. Pulse ox on. NIBP on. tw2 17:35 Madeline Montalvo RN is Primary Nurse. tw2 19:00 Inserted saline lock: 20 gauge in right antecubital area, using aseptic technique. tw2 Blood collected. 19:06 Report given to ESPERANZA Siddiqi. tw2 19:19 Primary Nurse role handed off by Madeline Montalvo RN mw2 19:34 Neeru Van, ESPERANZA is Primary Nurse. omar 19:48 No provider procedures requiring assistance completed. omar 20:04 CT Abd/Pelvis - IV Contrast Only In Process Unspecified. EDMS 20:34 Attending Physician role handed off by Dominick Yates MD [facility] 20:34 Christiano Ruth MD is Attending Physician. [facility] 20:53 Urine --Ancillary (enter results) Sent. omar 21:26 intact, bleeding controlled, No redness/swelling at site. Pressure dressing applied. omar Administered Medications: 20:59 Drug: Bactrim (trimethoprim-sulfamethoxazole) (160 mg-800 mg (DS) 1 tablet Route: PO; omar 21:25 Follow up: Response: No adverse reaction omar 20:59 Drug: KeFLEX (cephalexin) 500 mg Route: PO; omar 21:25 Follow up: Response: No adverse reaction omar Medication: 19:48 VIS not applicable for this client. omar Outcome: 19:48 Condition: stable omar 20:46 Discharge ordered by . [facility] 21:26 Discharged to home ambulatory, with family. omar 21:26 Discharge instructions given to patient, Instructed on discharge instructions, follow up and referral plans. medication usage, Demonstrated understanding of instructions, follow-up care, medications, Prescriptions given X 2. 21:28 Patient left the ED. omar Signatures: Dispatcher [employer] EDNV Dominick Yates MD MD kdr Martinez, Amelia as Madeline Montalvo RN RN tw2 Gabriel Tavarez 2 Christiano Ruth MD MD [facility] Erica Vázquez RN RN 1 Neeru Van RN RN omar
--- NOTE | 2022-02-07 20:46 | EDPHYS ---
Physician Documentation [facility] Name: Eden Lopez Age: 26 yrs Sex: Female : 1995 Arrival Date: 02/07/2022 Time: 15:42 Bed 18 Private MD: ED Physician Christiano Ruth HPI: 02/07 18:37 This 26 yrs old Female presents to ER via Ambulatory with complaints of kdr bleeding from umbilicus. 18:37 The patient presents with abdominal pain in the periumbilical area. Bleeding from kdr umbilicus. Onset: The symptoms/episode began/occurred this morning. The symptoms do not radiate. Associated signs and symptoms: none. The symptoms are described as intermittent, vague, waxing/waning. Modifying factors: The symptoms are alleviated by nothing, the symptoms are aggravated by pressure, touching the area, Patient complains of bleeding from her umbilicus. She indicated that she was having some discomfort there this morning and put her finger in her navel and then noticed some blood from there. She is continue to have pain with palpation to her umbilicus and has also continued to have intermittent minor bleeding.. Severity of pain: At its worst the pain was mild in the emergency department the pain is unchanged. The patient has not experienced similar symptoms in the past. The patient has not recently seen a physician. 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 - Social history:: Smoking status: Patient denies any tobacco usage or history of. Patient/guardian denies using alcohol. ROS: 18:37 Constitutional: Negative for fever, chills, and weight loss, Eyes: Negative for injury, kdr pain, redness, and discharge, ENT: Negative for injury, pain, and discharge, Neck: Negative for injury, pain, and swelling, Cardiovascular: Negative for chest pain, palpitations, and edema, Respiratory: Negative for shortness of breath, cough, wheezing, and pleuritic chest pain, Back: Negative for injury and pain, : Negative for injury, bleeding, discharge, and swelling, MS/Extremity: Negative for injury and deformity, Skin: Negative for injury, rash, and discoloration, Neuro: Negative for headache, weakness, numbness, tingling, and seizure activity. Psych: Negative for depression, anxiety, suicide ideation, homicidal ideation, and hallucinations, Allergy/Immunology: Negative for hives, rash, and allergies, Endocrine: Negative for neck swelling, polydipsia, polyuria, polyphagia, and marked weight changes, Hematologic/Lymphatic: Negative for swollen nodes, abnormal bleeding, and unusual bruising. 18:37 Abdomen/GI: Positive for abdominal pain, Negative for nausea, vomiting, and diarrhea, nausea, vomiting, diarrhea, constipation, abdominal cramps, abdominal distension, anorexia, dysphagia, hematemesis, black/tarry stool, rectal pain, rectal bleeding. Exam: 18:37 Constitutional: This is a well developed, well nourished patient who is awake, alert, kdr and in no acute distress. Head/Face: Normocephalic, atraumatic. 18:37 Abdomen/GI: Inspection: abdomen appears normal, obese Bowel sounds: active, all quadrants, Palpation: soft, mild abdominal tenderness, in the umbilical area. Vital Signs: 16:04 BP 122 / 79; Pulse 106; Resp 18; Temp 98.7(O); Pulse Ox 99% on R/A; Weight 72.57 kg; ld1 Height 5 ft. 2 in. (157.48 cm); Pain 3/10; 17:40 BP 111 / 70; Pulse 90; Resp 17; Pulse Ox 100% on R/A; tw2 19:34 BP 114 / 63; Pulse 82; Resp 16; Temp 98.7; Pulse Ox 100% on R/A; Pain 0/10; omar 16:04 Body Mass Index 29.26 (72.57 kg, 157.48 cm) ld1 MDM: 18:37 Data reviewed: vital signs, nurses notes, lab test result(s), radiologic studies. kdr Counseling: I had a detailed discussion with the patient and/or guardian regarding: the historical points, exam findings, and any diagnostic results supporting the discharge/admit diagnosis, lab results, radiology results, the need for outpatient follow up. 20:41 Differential diagnosis: non-specific abd pain, Abscess, cellulitis. Data interpreted: [facility] Pulse oximetry: on room air is 100 %. Interpretation: normal. Response to treatment: the patient's symptoms have markedly improved after treatment. 20:46 Patient medically screened. [facility] 02/07 18:29 Order name: CBC with Diff; Complete Time: 20:29 kdr 02/07 18:29 Order name: CMP; Complete Time: 20:29 kdr 02/07 18:29 Order name: Lipase; Complete Time: 20:29 kdr 02/07 18:36 Order name: CT Abd/Pelvis - IV Contrast Only; Complete Time: 20:29 kdr 02/07 19:47 Order name: Urine Dipstick-Ancillary; Complete Time: 20:29 EDMS 02/07 19:49 Order name: Urine --Ancillary (enter results) [facility] 02/07 18:29 Order name: IV Saline Lock; Complete Time: 19:02 kdr 02/07 18:29 Order name: Labs collected and sent; Complete Time: 19:02 kdr 02/07 19:32 Order name: Urine Test (obtain specimen); Complete Time: 19:47 mw2 02/07 19:32 Order name: Urine Dipstick-Ancillary (obtain specimen); Complete Time: 19:47 mw2 Administered Medications: 20:59 Drug: Bactrim (trimethoprim-sulfamethoxazole) (160 mg-800 mg (DS) 1 tablet Route: PO; omar 21:25 Follow up: Response: No adverse reaction omar 20:59 Drug: KeFLEX (cephalexin) 500 mg Route: PO; omar 21:25 Follow up: Response: No adverse reaction omar Disposition Summary: 02/07/22 20:46 Discharge Ordered Location: Home [facility] Problem: new [facility] Symptoms: have improved [facility] Condition: Stable [facility] Diagnosis - Cellulitis of abdominal wall [facility] Followup: [facility] - With: Private Physician - When: 1 - 2 days - Reason: Worsening of condition, Recheck today's complaints, Continuance of care, Re-evaluation by your physician Discharge Instructions: - Discharge Summary Sheet [facility] - Cellulitis, Adult, [id number] [facility] Forms: - Medication Reconciliation Form [facility] - Thank You Letter [facility] - Antibiotic Education [facility] - Prescription Opioid Use [facility] Prescriptions: - Cephalexin 500 mg Oral Capsule - take 1 capsule by ORAL route every 6 hours for 10 days; 40 capsule; Refills: 0, [facility] Product Selection Permitted - Bactrim DS 800-160 mg Oral Tablet - take 1 tablet by ORAL route every 12 hours for 10 days; 20 tablet; Refills: 0, [facility] Product Selection Permitted Signatures: Dispatcher [employer] Dominick Rubio MD MD [facility] Gabriel Tavarez 2 Christiano Ruth MD MD 7 Erica Vázquez RN RN ld1 Neeru Van RN RN omar
[2022-02-07] MEDS ORDERED: SMZ./TMP. 800/160 MG TABLET ONE (20:57)
[2022-02-07] MEDS ORDERED: CEPHALEXIN 250 MG CAP ONE (20:57)
[2022-02-07 21:41] VITALS: TEMP 98.7
[2022-02-07 21:43] VITALS: O2SAT 100
[2022-02-07 21:45] VITALS: BP 114/63
== END 2022-02-07 21:28 | disposition home or self-care (01) ==
LOC: ER 15:29
DX: L03.311 Cellulitis of abdominal wall (principal); Z88.5 Allergy status to narcotic agent
CPT/HCPCS: 85025; 36415; 81025; 81003; 83690; 80053; 74177; 99284; Q9967

== ENCOUNTER 2023-07-01 08:19 | Emergency (ER) | payer OTHER ==
--- OUTSIDE RECORDS SUMMARY | 2023-07-01 08:29 | XMS REPORT | Continuity of Care Document ---
:1995 Author Organization [facility] t Address [address] [facility] [address] [place] [address] Care Team Providers Name Role Phone HADLEY HERNANDEZ Primary Care Physician Unavailable Hadley Hernandez Attending Clinician Unavailable Lab, Ang - Db Attending Clinician Unavailable Chevy ORTEZ, Dian Attending Clinician DIAN MUNIZ Attending Clinician Unavailable Doctor Unassigned, [place] Attending Clinician Unavailable Doretha Diaz MA Attending Clinician Unavailable ROXY Attending Clinician Unavailable LUZMARIA YAN Attending Clinician Unavailable Linus Attending Clinician Unavailable 2, Adc Lab Attending Clinician Unavailable Luzmaria Yan MD Attending Clinician ROXY Admitting Clinician Unavailable Linus Admitting Clinician Unavailable Payers Payer Name Policy Type Policy Number Effective Date Expiration Date Felice lu [place] [id number] [facility] [id number] [facility] [id number] 2018 HEALTHCARE 00:00:00 [place] Problems Condition Condition Condition Status Onset Resolution Last Treating Co mments Source Name Details Category Date Date Treatment Clinician Date Well woman Well woman Disease Active U nivers exam with exam with 3-03 ity of routine routine 00:00: [place] gynecologi gynecologi 00 Co dical rao exam rao exam Branch BMI BMI Disease Active Univers 29.0-29.9, 29.0-29.9, 3-03 it y of adult adult 00:00: [place] 00 Medical Branch Pre-eclamp Pre-eclamp Problem Active M atagor nano nano 1-22 da 00:00: Medical 00 Group Oligohydra Oligohydra Problem Active M at[place] mnios mnios 1-22 da 00:00: Medical 00 Group Problem Active [place] growth Growth 1-22 da restrictio Restrictio 00:00: Co dical n n 00 Group Small for Small for Problem Active Mat [facility] gestationa Gestationa 1-15 da l age l Age 00:00: Medical fetus Fetus 00 Group Candidiasi Candidiasi Problem Active 2016-09 M at[place] s of s of 0-05 da vagina Vagina 00:00: Medical 00 Group Acute Acute Problem Active [place] cystitis Cystitis [...] Group Insomnia Insomnia Problem Active [place] 2 da 00:00: Medical Group Migraine Migraine Problem Active [place] 2 da 00:00: Medical 00 Group No known No known Disease Unive rs active active ity of problems problems [facility] [id number] Panic Problem Active Common disorder Spirit [episodic - [facility]I paroxysmal St anxiety] [facility] [id number] Mixed Problem Active Common hyperlipid Spirit emia - [facility] [id number] Dysphagia, Problem Active Com mon unspecifie Spirit d type - [facility] [id number] GERD Problem Active Common without Spirit esophagiti - [facility] [id number] Generalize Problem Active Com mon d anxiety [facility] disorder - [facility] [id number] Body mass Problem Active Com mon index Spirit [BMI] - [facility] 30.0-30.9, [facility] [id number] Other Problem Active Common obesity Spirit due to - [facility]I excess calories [facility] Allergies, Adverse Reactions, Alerts Allergy Allergy Status Severity Reaction(s) Onset Inactive Treating Comm ents Source Name Type Date Date Clinician NITROFUR DRUG Active Med Rash Univers ANTOIN 9-15 ity of MONOHYD/ 00:00: [place] M-CRYST [address] [place] [address] nitrofur DA Active U [facility] antoin 1-22 Woman's 00:00: [facility] 00 [facility] [place] Nitrofur Allergy Active [place] [facility] Medical e Group TREE AND Allergy Active [place] SHRUB to POLLEN [facility] e Group NO KNOWN Drug Active Univers ALLERGIE Class ity of S [facility] nitrofur nitrofur Active Rash Common antoin, antoin, Spirit macrocry macrocry - [facility]I stals / stals / St nitrofur nitrofur [facility] antoin, antoin, Medical monohydr monohydr Center ate ate House Allergy Active [place] [facility] Medical e Group Social History Social Habit Start Date Stop Date Quantity Comments Source History of Common Spirit - Tobacco Use [facility] Sex Assigned At Common Sp jared - [facility] Exposure to 2022-10-30 2022-11-09 Not sure University of SARS-CoV-2 00:00:00 12:21:00 [facility] (event) Branch Tobacco use and 2022-11-09 2022-11-09 Smokeless tobacco Un iversity of exposure 00:00:00 00:00:00 non-user [facility] Alcohol intake 2022-11-09 2022-11-09 Current drinker Unive rsity of 00:00:00 00:00:[address] [facility] (finding) Branch Smoking Status Start Date Stop Date Source Never Smoker Common Spirit - [facility] Medications Ordered Filled Start Stop Current Ordering Indication Dosage Frequency Signature Comments Components Source Medication Medication Date Date Medication? Clinician (SIG) Name Name omeprazole Yes TAKE 1 Unive rs 40 mg 3-03 CAPSULE BY ity of capsule 11:47: MOUTH 30 [place] 54 MINUTES Medical BEFORE [place] MORNING MEAL ONCE A DAY for 30 cyanocobala Yes Vitamin Uni vers min, 3-03 B12 ity of vitamin 11:47: [place] [address] Medical (VITAMIN Branch B-12 ORAL) FERROUS Yes Ferrous Univers SULFATE 3-03 Sulfate ity of ORAL 11:47: [address] omeprazole Yes TAKE 1 Unive rs 40 mg 3-03 CAPSULE BY ity of capsule 11:47: MOUTH 30 [place] 54 MINUTES Medical BEFORE [place] MORNING MEAL ONCE A DAY for 30 cyanocobala Yes Vitamin Uni vers min, 3-03 B12 ity of vitamin 11:47: [facility] Medical (VITAMIN Branch B-12 ORAL) FERROUS Yes Ferrous Univers SULFATE 3-03 Sulfate ity of ORAL 11:47: [address] omeprazole Yes TAKE 1 Unive rs 40 mg 3-03 CAPSULE BY ity of capsule 11:47: MOUTH 30 [place] 54 MINUTES Medical BEFORE [place] MORNING MEAL ONCE A DAY for 30 cyanocobala Yes Vitamin Uni vers min, 3-03 B12 ity of vitamin 11:47: [place] [address] Medical (VITAMIN Branch B-12 ORAL) FERROUS Yes Ferrous Univers SULFATE 3-03 Sulfate ity of ORAL 11:47: [address] omeprazole Yes TAKE 1 Unive rs 40 mg 3-03 CAPSULE BY ity of capsule 11:47: MOUTH 30 [place] 54 MINUTES Medical BEFORE [place] MORNING MEAL ONCE A DAY for 30 cyanocobala Yes Vitamin Uni vers min, 3-03 B12 ity of vitamin 11:47: [facility] Medical (VITAMIN Branch B-12 ORAL) FERROUS Yes Ferrous Univers SULFATE 3-03 Sulfate ity of ORAL 11:47: [address] cyanocobala Yes Vitamin Uni vers min, 2-15 B12 ity of vitamin 11:09: [place] [address] Medical (VITAMIN Branch B-12 ORAL) FERROUS Yes Ferrous Univers SULFATE 2-15 Sulfate ity of ORAL 11:09: [address] cyanocobala Yes Vitamin Uni vers min, 2-15 B12 ity of vitamin 11:09: [facility] Medical (VITAMIN Branch B-12 ORAL) FERROUS Yes Ferrous Univers SULFATE 2-15 Sulfate ity of ORAL 11:09: [address] omeprazole Yes TAKE 1 Unive rs 40 mg 2-15 CAPSULE BY ity of capsule 11:09: MOUTH 30 [place] 41 MINUTES Medical BEFORE [place] MORNING MEAL ONCE A DAY for 30 omeprazole Yes TAKE 1 Unive rs 40 mg 2-15 CAPSULE BY ity of capsule 11:09: MOUTH 30 [place] 41 MINUTES Medical BEFORE [place] MORNING MEAL ONCE A DAY for 30 neomycin-po 2020-0 Yes INSTILL 4 U nivers [...] FOR 7 DAYS Neomycin-Po Neomycin-Po 2020-0 Yes Hadley 4 drops Common lymyxin-HC lymyxin-HC 9-03 Hernandez into Sp jared 00:00: affected - [facility]I 00 ear [facility] Neomycin-Po Neomycin-Po 2020-0 No 4{drops TID Neomycin-P lymyxin-HC lymyxin-HC 9-03 _into_a olymyxin-H 3.5-85230-5 3.5-43417-3 00:00: ffected C 00 _ear} 3.5-69719- 1 Neomycin-Po Neomycin-Po 2020-0 No 4{drops TID Neomycin-P lymyxin-HC lymyxin-HC 9-03 _into_a olymyxin-H 3.5-61819-7 3.5-40608-6 00:00: ffected C 00 _ear} 3.5-39860- 1 Neomycin-Po Neomycin-Po 2020-0 No 4{drops TID Neomycin-P lymyxin-HC lymyxin-HC 9-03 _into_a olymyxin-H 3.5-90214-8 3.5-35414-2 00:00: ffected C 00 _ear} 3.5-64826- 1 Neomycin-Po Neomycin-Po 2020-0 No 4{drops TID Neomycin-P lymyxin-HC lymyxin-HC 9-03 _into_a olymyxin-H 3.5-05426-2 3.5-34886-9 00:00: ffected C 00 _ear} 3.5-57946- 1 Neomycin-Po Neomycin-Po 2020-0 No 4{drops TID Neomycin-P lymyxin-HC lymyxin-HC 9-03 _into_a olymyxin-H 3.5-29583-5 3.5-43407-4 00:00: ffected C 00 _ear} 3.5-06745- 1 Neomycin-Po Neomycin-Po 2020-0 No 4{drops TID Neomycin-P lymyxin-HC lymyxin-HC 9-03 _into_a olymyxin-H 3.5-41964-0 3.5-02868-7 00:00: ffected C 00 _ear} 3.5-08245- 1 Neomycin-Po Neomycin-Po 2020-0 No 4{drops TID Neomycin-P lymyxin-HC lymyxin-HC 9-03 _into_a olymyxin-H 3.5-61327-1 3.5-17824-7 00:00: ffected C 00 _ear} 3.5-07235- 1 hydrOXYzine 2020-0 Yes TAKE 1 Univ ers [...] CAPSULE BY ity of capsule 00:00: MOUTH [place] 00 EVERY 8 Medical HOURS Branch NEEDED FOR ANXIETY hydrOXYzine 2019-0 Yes TAKE 1 Univ ers 25 mg 7-24 CAPSULE BY ity of capsule 00:00: MOUTH [place] 00 EVERY 8 Medical HOURS Branch NEEDED FOR ANXIETY hydrOXYzine 0 Yes TAKE 1 Univ ers 25 mg 7-24 CAPSULE BY ity of capsule 00:00: MOUTH [place] 00 EVERY 8 Medical HOURS Branch NEEDED FOR ANXIETY Vistaril Vistaril 2019-0 Yes Hadley 1 capsule Common 03-16 Hernandez as needed Spirit 00:00: - [facility] 00 [facility] Zithromax Zithromax No Zithromax [place] Z-Edin 250 [...] ONCE DAYS DAYS DAILY FOR 4 DAYS Vitamin B12 Vitamin B12 Yes Hadley not Common Henrandez defined [facility] Ferrous Ferrous Yes Hadley not Common Sulfate Sulfate Hernandez defined [facility] Omeprazole Omeprazole Yes Hadley TAKE 1 Common Hernandez CAPSULE BY Spirit MOUTH 30 - CHI MINUTES BEFORE [facility] MORNING Medical MEAL ONCE Center A DAY Ferrous Ferrous No Ferrous Sulfate Sulfate Sulfate Vistaril 25 Vistaril 25 No 1{capsu Vistaril MG MG le_as_n 25 MG eeded} Vitamin B12 Vitamin B12 No Vitamin B12 Omeprazole Omeprazole No QD Omeprazole 40 MG 40 MG 40 MG Omeprazole Omeprazole No Omeprazole 40 MG 40 MG 40 MG Vitamin B12 Vitamin B12 No Vitamin B12 Vistaril 25 Vistaril 25 No 1{capsu Vistaril MG MG le_as_n 25 MG eeded} Omeprazole Omeprazole No Omeprazole 40 MG 40 MG 40 MG Ferrous Ferrous No Ferrous Sulfate Sulfate Sulfate Ferrous Ferrous No Ferrous Sulfate Sulfate Sulfate Omeprazole Omeprazole No Omeprazole 40 MG 40 MG 40 MG Vistaril 25 Vistaril 25 No 1{capsu Vistaril MG MG le_as_n 25 MG eeded} Vitamin B12 Vitamin B12 No Vitamin B12 Ferrous Ferrous No Ferrous Sulfate Sulfate Sulfate Vitamin B12 Vitamin B12 No Vitamin B12 Vistaril 25 Vistaril 25 No 1{capsu Vistaril MG MG le_as_n 25 MG eeded} Omeprazole Omeprazole No Omeprazole 40 MG 40 MG 40 MG Ferrous Ferrous No Ferrous Sulfate Sulfate Sulfate Vitamin B12 Vitamin B12 No Vitamin B12 Vistaril 25 Vistaril 25 No 1{capsu Vistaril MG MG le_as_n 25 MG eeded} Omeprazole Omeprazole No Omeprazole 40 MG 40 MG 40 MG Ferrous Ferrous No Ferrous Sulfate Sulfate Sulfate Vitamin B12 Vitamin B12 No Vitamin B12 Vistaril 25 Vistaril 25 No 1{capsu Vistaril MG MG le_as_n 25 MG eeded} Omeprazole Omeprazole No Omeprazole 40 MG 40 MG 40 MG Omeprazole Omeprazole No QD Omeprazole 40 MG 40 MG 40 MG Ferrous Ferrous No Ferrous Sulfate Sulfate Sulfate Omeprazole Omeprazole No Omeprazole 40 MG 40 MG 40 MG Vitamin B12 Vitamin B12 No Vitamin B12 Vital Signs Vital Name Observation Time Observation Value Comments Source Systolic blood 2022-11-09 17:45:00 116 mm[Hg] [facility] Diastolic blood 2022-11-09 17:45:00 80 mm[Hg] [facility] Heart rate 2022-11-09 17:45:00 80 /min [facility] Respiratory rate 2022-11-09 17:45:00 18 /min [facility] Body height 2022-11-09 17:45:00 157.5 cm [facility] Body weight 2022-11-09 17:45:00 73.483 kg [facility] BMI 2022-11-09 17:45:00 29.63 kg/m2 [facility] height 2022-04-25 16:40:00 62 [in_i] [facility] weight 2022-04-25 16:40:00 166 [lb_av] [facility] temperature 2022-04-25 16:40:00 98 [degF] [facility] bmi 2022-04-25 16:40:00 30.36 kg/m2 [facility] respiratory rate 2022-03-19 16:00:00 18 /min Comm on [facility] blood pressure 2022-03-19 16:00:00 112 mm[Hg] [facility] - systolic [facility] blood pressure 2022-03-19 16:00:00 75 mm[Hg] Common [facility] diastolic [facility] height 2022-03-19 16:00:00 62 [in_i] [facility] weight 2022-03-19 16:00:00 168.7 [lb_av] [facility] temperature 2022-03-19 16:00:00 97.9 [degF] [facility] bmi 2022-03-19 16:00:00 30.85 kg/m2 [facility] oximetry 2022-03-19 16:00:00 98 % [facility] height 2021-09-19 08:40:00 62 [in_i] [facility] weight 2021-09-19 08:40:00 135 [lb_av] [facility] bmi 2021-09-19 08:40:00 24.69 kg/m2 [facility] height 2021-06-02 10:00:00 62 [in_i] [facility] weight 2021-06-02 10:00:00 140 [lb_av] [facility] temperature 2021-06-02 10:00:00 97.7 [degF] [facility] bmi 2021-06-02 10:00:00 25.6 kg/m2 [facility] respiratory rate 2021-06-02 10:00:00 18 /min Comm on [facility] blood pressure 2021-06-02 10:00:00 114 mm[Hg] [facility] - systolic [facility] blood pressure 2021-06-02 10:00:00 69 mm[Hg] [facility] - diastolic [facility] Systolic blood 2020-05-24 19:21:00 98 mm[Hg] Univer sity of pressure [facility] Diastolic blood 2020-05-24 19:21:00 75 mm[Hg] Unive rsity of [facility] Heart rate 2020-05-24 19:21:00 92 /min [facility] Body temperature 2020-05-24 19:21:00 36.72 [facility]a [facility] 2020-05-24 19:21:00 16 /min Univ [facility] Body height 2020-05-24 19:21:00 157.5 cm [facility] Body weight 2020-05-24 19:21:00 61.508 kg [facility] BMI 2020-05-24 19:21:00 24.80 kg/m2 [facility] BP Diastolic 2018-11-03 00:00:00 70 mm[Hg] [facility] Height 2018-11-03 00:00:00 62 [in_i] [facility] BMI (Body Mass 2018-11-03 00:00:00 23 kg/m2 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 Medical Index) Group BP Systolic 2018-10-20 00:00:00 120 mm[Hg] [facility] Body Weight 2018-10-20 00:00:00 129 [lb_av] [facility] BP Diastolic 2018-09-25 00:00:00 65 mm[Hg] [facility] Height 2018-09-25 00:00:00 62 [in_i] [facility] BMI (Body Mass 2018-09-25 00:00:00 23.6 kg/m2 [facility] Medical Index) Group BP Systolic 2018-09-25 00:00:00 120 mm[Hg] [facility] Body Weight 2018-09-25 00:00:00 129 [lb_av] [facility] BP Diastolic 2018-09-22 00:00:00 70 mm[Hg] [facility] Height 2018-09-22 00:00:00 62 [in_i] [facility] BMI (Body Mass 2018-09-22 00:00:00 23.7 kg/m2 [facility] Medical Index) Group BP Systolic 2018-09-22 00:00:00 108 mm[Hg] [facility] Body Weight 2018-09-22 00:00:00 2069 [oz_av] [facility] Procedures Procedure Date / Time Performing Clinician Source Performed ASSIGNMENT OF BENEFITS 2022-11-09 17:01:51 Doctor Unassigned, No [facility] Branch [place], hepatobiliary scan, 2018-10-21 00:00:00 [facility] CT, abdomen, w/wo 2018-10-01 00:00:00 [facility] unlisted imaging order 2018-09-25 00:00:00 [facility] Caesarean Section 2017-10-07 00:00:00 [facility] Ovarian Cystectomy [facility] Plan of Care Planned Activity Planned Date Details Comments Source Instructions [facility] Encounters Start End Encounter Admission Attending Care Care Encounter Source Date/Time Date/Time Type Type Clinicians Facility Department ID 2022-03-16 Outpatient Hernandez, STLMLC STLMLC [id number] Common 12:30:01 Hadley [facility] 2021-10-04 Outpatient Hernandez, STLMLC STLMLC [id number] Common 13:53:06 Hadley 58834 [facility] 2021-10-04 Outpatient Hernandez, STLMLC STLMLC [id number] Common 13:37:35 Hadley 20643 [facility] 2021-10-04 Outpatient Hernandez, STLMLC STLMLC [id number] Common 13:37:22 Hadley 63706 [facility] 2021-10-04 Outpatient Hernandez, STLMLC STLC [id number] Common 12:28:15 Hadley 65994 [facility] 2021-10-04 Outpatient Hernandez, STLMLC STLC [id number] Common 12:16:02 Hadley 66129 [facility] 2021-10-04 Outpatient Hernandez, STLMLC STLMLC [id number] Common 12:15:34 Hadley 24345 [facility] 2021-10-04 Outpatient Hernandez, STLMLC STLC [id number] Common 12:01:17 Hadley 99625 [facility] 2021-10-04 Outpatient Hernandez, STLMLC STLC [id number] Common 12:00:39 Hadley 90128 [facility] 2021-10-04 Outpatient Hernandez, STLMLC STLMLC [id number] Common 11:59:52 Hadley 13769 [facility] 2021-10-04 Outpatient Hernandez, STLMLC STLC [id number] Common 11:50:14 Hadley 87802 [facility] 2021-10-04 Outpatient Hernandez, STLMLC STLC [id number] Common 11:30:29 Hadley 22604 [facility] 2021-10-04 [facility], [facility] [id number] Common 11:18:21 Hadley 87918 [facility] 2021-10-04 Outpatient Hernandez, [facility] [id number] Common 11:14:56 Hadley 08277 [facility] 2021-10-04 Outpatient Hernandez, [facility] [id number] Common 11:14:29 Hadley 17552 [facility] 2022-11-09 2022-11-09 Billing Rep Lab, Ang - Db [facility] [id number] Univers 12:45:00 12:59:32 Visit Dian Muniz [id number] 0 ity of [place] [id number] Dwayne as MARLENA?BLEA [phone] [address] MEDICAL OFFICE BUILDING 2022-11-09 2022-11-09 Outpatient R DIAN MUNIZ [facility] B [id number] Univers 11:00:00 12:04:07 DIAN MUNIZ ity of [facility] 2022-11-09 2022-11-09 Office [facility] [id number] Univers 11:00:00 12:04:07 Visit Dian OLINDA [id number] it y of [place] [phone] [facility] 134 Branch 2022-11-09 2022-11-09 Orders Doctor NAZ [id number] Univers 00:00:00 00:00:00 Only Unassigned, CATHERINE [id number] ity of [place] [facility] 4.2.7.2.686 Dwayne as [id number] [facility] 009 Branch 2022-11-02 2022-11-02 Pre Visit PHI Diaz [id number] Univers 00:00:00 00:00:00 Outreach Doretha GOMEZ [id number] i [place] [id number] [place] [address] Branch 2022-10-31 2022-10-31 Outpatient R JULIADIAN DAVIS [facility] B [id number] Univers 11:15:00 11:15:00 JULIARYAN SANDRASANJUANA roxanemo [facility] 2022-04-25 2022-04-25 OFFICE STLMLC STLMLC [id number] Co mmon 00:00:00 00:00:00 VISIT EST Spir it PT LEVEL 3 - [facility] 2022-04-09 2022-04-09 Outpatient DICLEMENTE_ MEHOP MEHOP [id number] [place] 00:00:00 00:00:00 ANN-MARIE 88884 da [facility] 2022-03-19 2022-03-19 PREV VISIT STLMLC STLMLC [id number] Common 00:00:00 00:00:00 EST AGE Spirit 18-39 - [facility] 2022-02-08 2022-02-08 (TEL) STLMLC STLMLC [id number] Co mmon 00:00:00 00:00:00 [facility] 2021-09-19 2021-09-19 OFFICE STLMLC STLMLC [id number] Co mmon 00:00:00 00:00:00 VISIT EST Spir it PT LEVEL 3 - [facility] 2021-09-18 2021-09-18 (TEL) STLMLC STLMLC [id number] Co mmon 00:00:00 00:00:00 [facility] 2021-06-02 2021-06-02 OFFICE STLMLC STLMLC [id number] Co mmon 00:00:00 00:00:00 VISIT Spirit ESTAB PT - CHI LEVEL 2 [facility] 2021-05-29 2021-05-29 (TEL) STLMLC STLMLC [id number] Co mmon 00:00:00 00:00:00 [facility] 2021-05-26 2021-05-26 Outpatient Mindi YAN [facility] [id number] Univers 14:45:00 14:45:00 LUZMARIA stevens [facility] 2021-05-25 2021-05-25 Outpatient R KAROLINA, [facility] [id number] Univers 15:30:00 15:30:00 LUZMARIA [facility] 2021-04-20 2021-04-20 Outpatient STLMLC STLMLC [id number] Common 00:00:00 00:00:00 [facility] 2021-03-21 2021-03-21 Outpatient STLMLC STLMLC [id number] Common 00:00:00 00:00:00 [facility] 2020-10-14 2020-10-14 Outpatient STLMLC STLMLC [id number] Common 00:00:00 00:00:00 [facility] 2020-08-31 2020-08-31 Outpatient STLMLC STLMLC [id number] Common 00:00:00 00:00:00 [facility] 2020-08-09 2020-08-09 Outpatient STLMLC STLMLC [id number] Common 00:00:00 00:00:00 [facility] 2020-07-27 2020-07-27 Outpatient Linus MMG MMG [id number] [place] 02:46:00 02:46:00 [facility]8 [facility] 2020-07-11 2020-07-11 Outpatient STLMLC STLMLC [id number] Common 00:00:00 00:00:00 [facility] 2020-06-07 2020-06-07 Outpatient STLMLC STLMLC [id number] Common 00:00:00 00:00:00 [facility] 2020-05-24 2020-05-24 Billing Rep 2, Adc Lab [facility] [id number] Univers 15:11:40 15:26:40 Visit Luzmaria Yan 350.1.13.10 ity of [place] 4.2.7.2.686 [place] [id number] [address] 2020-05-24 2020-05-24 Office Adhuy, [facility] [id number] Univers 14:01:53 14:31:53 Visit Luzmaria Wilson 350.1.13.10 ity of [place] 4.2.7.2.686 [place] [id number] [address] 2020-05-24 2020-05-24 Outpatient Mindi YAN [facility] [id number] Univers 14:00:00 14:00:00 LUZMARIA roxanemo [facility] 2020-05-12 2020-05-12 Out[facility] [id number] Common 13:00:00 13:00:[address] Sp[address] [facility] 2020-05-11 2020-05-11 Outpatient [facility] [id number] Common 11:46:00 11:46:[address] Sp[address] [facility] 2020-04-06 2020-04-06 Outpatient [facility] [id number] Common 15:15:00 15:15:[address] Sp[address] [facility] 2020-03-16 2020-03-16 Outpatient [facility] [id number] Common 11:15:00 11:15:[address] Sp[address] [facility] 2020-01-08 2020-01-08 Outpatient [facility] [id number] Common 14:46:00 14:46:[address] Sp[address] [facility] 2019-12-28 2019-12-28 Outpatient [facility] [id number] Common 15:15:00 15:15:[address] Sp[address] [facility] 2019-11-27 2019-11-27 Outpatient [facility] [id number] Common 11:00:00 11:00:[address] Sp[address] [facility] 2019-11-25 2019-11-25 Outpatient [facility] [id number] Common 11:00:00 11:00:[address] Sp[address] [facility] 2018-11-18 2018-11-18 Emergency E MHFB [facility]FB [id number] MHFB 21:14:00 21:14:00 2018-11-03 2018-11-03 [place] - [id number] [place] 00:00:00 00:00:00 Ryan DO: [address] [place] [address] - [address], [place] [address] , Ph. [phone] 2018-10-30 2018-10-30 [place] - [id number] [place] 00:00:00 00:00:00 Moose Rosales1 Harvey Hampton MD: [address] [place] [address] [address], [place] [address] , Ph. 2018-10-25 2018-10-25 Emergency E [facility] [id number] [facility]FB 01:55:00 01:55:00 2018-10-20 2018-10-20 [place] - [phone] [place] 00:00:00 00:00:00 Ryan DO: [address] [place] [address] - [facility] 201, [place] [address] , Ph. [phone] 2018-09-25 2018-09-25 [place] - [phone] [place] 00:00:00 00:00:00 Ryan DO: [address] [place] [address] 201, [place] [address] , Ph. [phone] 2018-09-22 2018-09-22 [place] - [id number] [place] 00:00:00 00:00:00 Moose Patterson Harvey Hampton MD: [address] [place] [address] [address], [place] [address] , Ph. Results Test Description Test Time Test Comments Results Result Comments Source test, urine 2018-09-23 05:27:00 Test Item Value Reference Range Interpretation Comme nts Choriogonadotropin ( test) [Presence] in Urine (tessa t code = negative neg 2106-3) [facility] - [id number] 05:27:00 Test Item Value Reference Range Interpretation Comments Color of Urine by Auto (test yellow code = 93171-9) Appearance of Urine (test code clear clear = 5767-9) Glucose [Presence] in Urine by negative negative Automated test strip (test code = 49864-0) Bilirubin.total [Mass/volume] negative negative in Urine (test code = 1978-6) Ketones [Mass/volume] in Urine =2 negative H by Automated test strip (test code = 97546-4) Specific gravity of Urine by 1.034 1.003-1.030 H Automated test strip (test code = 98564-4) blood urine (test code = blood negative negative urine) pH of Urine (test code = 5.500 5-9 2756-5) protein urine (UA) (test code = trace negative protein urine (UA)) Urobilinogen [Presence] in =2.0 0.2-1.0 H Urine (test code = 93825-4) Nitrite [Presence] in Urine by negative negative Test strip (test code = 5802-4) Leukocyte esterase [Presence] =2 negative H in Urine by Automated test strip (test code = 01033-9) Erythrocytes [#/volume] in =1-5 0-5 Urine by Automated count (test code = 798-9) Leukocytes [#/area] in Urine =1-5 0-5 sediment by Automated count (test code = 42636-3) Epithelial cells [Presence] in =1-5 0-5 Urine sediment by Light microscopy (test code = 85068-3) Bacteria identified in Urine by none detected none detect Culture (test code = 630-4) Casts [#/area] in Urine =2-5 none detect sediment by Automated count (test code = 17766-2) urine culture added? (test code yes = urine culture added?) [facility] GroupBacteria identified in Urine by [id number] 05:27:00Bacteria Ur CultMatagorda Medical Groupantibiotic sensitivity testing, [id number] 05:27:00 Test Item Value Reference Range Interpretation [...] Minimum inhibitory concentration (HEATHER) (test code = 59957-5) Piperacillin+Tazobactam <16 [Susceptibility] by Minimum inhibitory concentration [...] <2 inhibitory concentration (HEATHER) (test code = 24864-9) Aztreonam [Susceptibility] by Minimum <8 inhibitory concentration (HEATHER) (test code = 44-8) [id number] (test code = ika9634) <4 Meropenem [Susceptibility] by Minimum <4 inhibitory concentration (HEATHER) (test code = 6652-2) [facility] Center[facility] test, [id number] 05:27:00 Test Item Value Reference Range Interpretation Comments Choriogonadotropin ( test) negative neg [Presence] in Urine (test code = 2106-3) [facility] CenterUrinalysis complete panel - [id number] 05:27:00 Test Item Value Reference Range Interpretation Comments Color of Urine by Auto (test yellow code = 08187-4) Appearance of Urine (test code clear clear = 5767-9) Glucose [Presence] in Urine by negative negative Automated test strip (test code = 25692-4) Bilirubin.total [Mass/volume] negative negative in Urine (test code = 1978-6) Ketones [Mass/volume] in Urine =2 negative H by Automated test strip (test code = 32721-0) Specific gravity of Urine by 1.034 1.003-1.030 H Automated test strip (test code = 45264-4) blood urine (test code = blood negative negative urine) pH of Urine (test code = 5.500 5-9 2756-5) protein urine (UA) (test code = trace negative protein urine (UA)) Urobilinogen [Presence] in =2.0 0.2-1.0 H Urine (test code = 01554-5) Nitrite [Presence] in Urine by negative negative Test strip (test code = 5802-4) Leukocyte esterase [Presence] =2 negative H in Urine by Automated test strip (test code = 97254-5) Erythrocytes [#/volume] in =1-5 0-5 Urine by Automated count (test code = 798-9) Leukocytes [#/area] in Urine =1-5 0-5 sediment by Automated count (test code = 88804-9) Epithelial cells [Presence] in =1-5 0-5 Urine sediment by Light microscopy (test code = 49966-5) Bacteria identified in Urine by none detected none detect Culture (test code = 630-4) Casts [#/area] in Urine =2-5 none detect sediment by Automated count (test code = 12722-0) urine culture added? (test code yes = urine culture added?) [facility] CenterBacteria identified in Urine by [id number] 05:27:00Bacteria Ur CultSouthwest [facility] Medical Centerantibiotic sensitivity testing, [id number] 05:27:00 Test Item Value Reference Range Interpretation [...] Minimum inhibitory concentration (HEATHER) (test code = 97072-0) Piperacillin+Tazobactam <16 [Susceptibility] by Minimum inhibitory concentration [...] <2 inhibitory concentration (HEATHER) (test code = 46718-9) Aztreonam [Susceptibility] by Minimum <8 inhibitory concentration (HEATHER) (test code = 44-8) [id number] (test code = bqy8725) <4 Meropenem [Susceptibility] by Minimum <4 inhibitory concentration (HEATHER) (test code = 6652-2) [facility] W Auto Differential panel - [id number] 04:57:00 Test Item Value Reference Range Interpretation Comments white blood count (test code = 7.6 K/uL 4.0-11.5 white blood count) red blood count (test code = red 4.88 M/uL 3.80-5.20 blood count) Hemoglobin [Mass/volume] in Blood 11.5 g/dL 10.5-15.7 (test code = 718-7) hematocrit (test code = hematocrit) 38.1 % 34.0-50.0 Erythrocyte mean corpuscular volume 78.2 fL 78-98 [Entitic volume] (test code = 33290-6) Erythrocyte mean corpuscular 23.7 pg 26.2-33.4 L hemoglobin [Entitic mass] (test code = 30059-4) mean corpuscular HGB conc (test 30.3 g/dL 31.5-36.2 L code = mean corpuscular HGB conc) red cell distribution width (test 18.7 % 11.5-15.5 H code = red cell distribution width) Platelets [#/volume] in Blood (test 206 K/uL 137-338 code = 40245-1) Platelet mean volume [Entitic 7.7 fL 8.4-11.8 L volume] in Blood (test code = 92005-3) Neutrophils.band form/100 64.3 % 44.4-80.1 leukocytes in Blood (test code = 27016-6) Lymphocytes/100 leukocytes in Body 23.2 % 10.0-50.0 fluid (test code = 52495-2) Monocytes/100 leukocytes in Blood 8.2 % 3.6-12.04 by Automated count (test code = 5905-5) Eosinophils/100 leukocytes in Blood 3.3 % 0.0-5.41 by Automated count (test code = 713-8) Basophils/100 leukocytes in Blood 1.0 % 0.0-0.79 H by Automated count (test code = 706-2) [facility] Centerdifferential panel, [id number] 04:57:00 NeutrophilsBandLymphocyteAtypical LymphMonocyteEosinophilBasophilPlatelet EstimatePlatelet MorphologyAnisocytosisToxic GranulationSmudge CellsGiant PlateletsSouthwest [facility] Regional Medical CenterCB W Auto Differential panel - [id number] 04:57:00 Test Item Value Reference Range Interpretation Comments white blood count (test code = 7.6 K/uL 4.0-11.5 white blood count) red blood count (test code = red 4.88 M/uL 3.80-5.20 blood count) Hemoglobin [Mass/volume] in Blood 11.5 g/dL 10.5-15.7 (test code = 718-7) hematocrit (test code = hematocrit) 38.1 % 34.0-50.0 Erythrocyte mean corpuscular volume 78.2 fL 78-98 [Entitic volume] (test code = 34971-5) Erythrocyte mean corpuscular 23.7 pg 26.2-33.4 L hemoglobin [Entitic mass] (test code = 45346-1) mean corpuscular HGB conc (test 30.3 g/dL 31.5-36.2 L code = mean corpuscular HGB conc) red cell distribution width (test 18.7 % 11.5-15.5 H code = red cell distribution width) Platelets [#/volume] in Blood (test 206 K/uL 137-338 code = 53813-3) Platelet mean volume [Entitic 7.7 fL 8.4-11.8 L volume] in Blood (test code = 31630-8) Neutrophils.band form/100 64.3 % 44.4-80.1 leukocytes in Blood (test code = 09938-1) Lymphocytes/100 leukocytes in Body 23.2 % 10.0-50.0 fluid (test code = 96544-8) Monocytes/100 leukocytes in Blood 8.2 % 3.6-12.04 by Automated count (test code = 5905-5) Eosinophils/100 leukocytes in Blood 3.3 % 0.0-5.41 by Automated count (test code = 713-8) Basophils/100 leukocytes in Blood 1.0 % 0.0-0.79 H by Automated count (test code = 706-2) [facility] Centerdifferential panel, [id number] 04:57:00 NeutrophilsBandLymphocyteAtypical LymphMonocyteEosinophilBasophilPlatelet EstimatePlatelet MorphologyAnisocytosisToxic GranulationSmudge CellsGiant PlateletsMaUMMC GrenadaPLACENTA THIRD [id number] 08:19:00 RUN DATE: 08/13/18 [facility] PAGE 1 RUN TIME: 1340 Specimen Inquiry RUN USER: INTERFACE -PATIENT: LUZ LOPEZ LOC: JULIO CCARMEN U #: [id number] AGE/SX: 23/F ROOM: [facility] RE08/09/18REG DR: Honey Maria MD : 89 BED: A DIS: 08/12/18 STATUS: DIS IN TLOC: SPEC #: [id number] RECD: 08/09/18 STATUS: NHI FERNANDEZ #: [id number] JOHNATHAN: 08/09/18- SUBM DR: Honey Maria MD ENTERED: 08/11/18 SP TYPE: PLACIII OTHR DR: ORDERED: LEVEL V SURGICA/3 CODES: L48470 - FALLOPIAN TUBE [id number] - PLACENTA, NOS PROCEDURES: LEVEL V SURGICA (Incomplete) TISSUES: PLACENTA, NOS - PLACENTA FALLOPIAN TUBE, NOS - BILATERAL FALLOPIAN TUBES CLINICAL HISTORY 23 year old, 37.3 weeks, [id number], section, IUGR (kr) FINAL DIAGNOSIS Right fallopian tube, sterilization salpingectomy: - unremarkable fallopian tube with complete transection Left fallopian tube, sterilization salpingectomy: - unremarkable fallopian tube with complete transection Placenta, 37.3 weeks gestational age, section: - third trimester placenta, 439 gm (30th percentile) with patchy villous edema - trivascular umbilical cord and membranes free of inflammation Tissue code 1 CPT code(s): 87429 x2, 73345 [facility]/mar GROSS DESCRIPTION ANATOMIC SOURCE OF TISSUE (per [...] are submitted in A. Specimen #2 is designated "left fallopian tube" and consists of two segments of CONTINUED ON NEXT PAGE JM N DATE: 08/13/18 [facility] PAGE 2 RUN TIME: 1340 Specimen Inquiry RUN USER: INTERFACE SPEC #: [id number] PATIENT: ROSYLUZSteve FROST #[id number] (Continued) GROSS DESCRIPTION (Continued) fallopian tube with no fimbria aggregating to 7 x 0.3 x 0.2 cm. Three manufacturers representative cross-sections are submitted in B. Specimen #3 is designated "placenta". The following attributes are observed: Cord insertion: 6 cm from margin Cord length: 44 cm Number of vessels: 3 Cord color: Blue-acevedo Other cord findings: None surface findings: Steel blue, wrinkled, glistening Vasculature: Displays unremarkable blood vasculature Membranes rupture site: 0.0 cm to margin Membrane color: Acevedo Other membrane findings: Thickened and opaqueThe trimmed placental weight: 439 gm Disk measurement: 18 x 17 x 2.9 cm in greatest dimension Accesso ry lobes: None Maternal surface: Lobulated and intact Parenchyma: Red, beefy, and spongy Parenchyma lesions: None Cassettes: C through F hz/wpd 08/11/18 @ 1212 MICROSCOPIC DESCRIPTION Specimen #1 consists of a completely transected unremarkable fallopian tube with no atypia seen in the fimbriated end.Specimen #2 consists of a completely transected unremarkable fallopian tube. Specimen #3 - The trivascular umbilical cord and membranes free of inflammation. The villi have a third trimester morphology and there is patchy villous edema. No villitis or decidual vasculopathy identified. cosme/enrike---- -------- Signed Jessica Gould MD 08/13/18 0819 END OF REPORT
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
== END 2023-07-01 08:59 | disposition home or self-care (01) ==
LOC: ER 08:19
DX: T24.112A Burn of first degree of left thigh, initial encounter (principal); Z88.1 Allergy status to other antibiotic agents
CPT/HCPCS: 99281